=== PATIENT | male | born 1945 | race Caucasian/White ===

== ENCOUNTER 2017-07-24 11:10 | Day surgery (SDC) | payer MEDICARE ==
[~2017-07-24 11:10] MED LIST: Acetaminophen TAB* 325 MG PO PRN; Buffered Lidocaine 0.9% SYRIN* 5 ML/SYR SYRINGE INTRADERM ONE
[2017-07-24] MEDS ORDERED: acetaZOLAMIDE TAB* 250 MG ONE (11:19)
[2017-07-24] MEDS ORDERED: Tetracaine 0.5% OPTH.SOL 4 ML* 1 DROP BTL ONE (11:19)
[2017-07-24] MEDS ORDERED: Lidocaine 1%* 5 ML VIAL ONE (11:19)
[2017-07-24] MEDS ORDERED: Cyclopentolate 1% OPTH.SOL* 2 ML BTL ONE (11:19)
[2017-07-24] MEDS ORDERED: Phenylephrine 2.5% OPTH.SOL* 2 ML BTL ONE (11:19)
[2017-07-24] MEDS ORDERED: Ketorolac 0.5% OPHTH (NF) 0.5 % 5 ML BTL ONE (11:19)
[2017-07-24] MEDS ORDERED: Tropicamide 1% OPTH.SOL* BTL ONE (11:19)
[2017-07-24] MEDS ORDERED: Neomycin/Polymy/Dex OPHTH.OIN* 3.5 GM ONE (11:19)
[2017-07-24] MEDS ORDERED: Povidone Iodine 5% OPTH* 30 ML BTL ONE (11:19)
[2017-07-24] MEDS ORDERED: Levalbuterol 0.63MG/3ML NEB* UNIT OF USE INH ONE ×2 (12:16)
[2017-07-24] MEDS ORDERED: Midazolam* 1 MG/ML 5 ML VIAL (5 MG) ONE (12:34)
[2017-07-24 13:54] VITALS: BP 128/74
--- NOTE | 2017-07-25 13:06 | OP ---
DATE OF OPERATION: 07/24/17 - [facility] DATE OF : 45 SURGEON: Ramon Flanagan MD ANESTHESIA: Monitored anesthesia care. PRE-OP DIAGNOSIS: Cataract, right eye. POST-OP DIAGNOSIS: Cataract, right eye. OPERATIVE PROCEDURE: Extracapsular cataract extraction of the right eye with intraocular lens implant. IMPLANTS: SN60WF 18.0 diopter lens to the right eye. COMPLICATIONS: None. DESCRIPTION OF PROCEDURE: The patient was given phenylephrine 2.5% and cyclopentolate 1% eyedrops to the operative eye in the preoperative area. The patient was taken to the operating room where a time-out was taken to identify the correct patient, site, and side of surgery. The patient's right eye was prepped and draped in the usual sterile fashion with 5% Betadine. A second timeout was taken to verify the correct patient, site, and side of surgery, and correct lens implant. A lid speculum was placed in the right eye. A 1-mm paracentesis blade was used to make a clear corneal incision in the superotemporal position. Preservative-free 1% lidocaine was injected into the anterior chamber. DisCoVisc was then injected into the anterior chamber. A 2.75 -mm keratome blade was used to make a triplanar incision at the inferotemporal position. A cystotome initiated a capsulorrhexis, which was completed with Utrata forceps in a continuous and curvilinear manner. Hydrodissection of the lens was performed with BSS on a cannula. The lens could be spun in the capsular bag. The phacoemulsification handpiece was used with a divide-and- conquer technique to remove the nucleus with 20.03 CDE. The I/A handpiece then removed the residual cortical lens material. DisCoVisc was injected to inflate the capsular bag. The planned SN60WF 18.0 diopter lens was injected into the capsular bag. The residual DisCoVisc was removed from the eye with the I/A handpiece. The corneal incisions were hydrated and no leaks occurred at physiologic pressure around 20 mmHg per palpation. The lid speculum was removed and drapes removed. Maxitrol ointment was placed to the surface of the operative eye. An adhesive patch and shield was then placed on the operative eye. The patient was taken to the postoperative area in stable condition. [id number]/[facility] #: [id number] MTDD
== END 2017-07-24 14:00 | disposition home or self-care (01) ==
LOC: OREAST 11:10
PROVIDERS: ATTEND Student in an Organized Health Care Education/Training Program
DX: H25.11 Age-related nuclear cataract, right eye (principal); H04.123 Dry eye syndrome of bilateral lacrimal glands; E11.9 Type 2 diabetes mellitus without complications; Z79.84 Long term (current) use of oral hypoglycemic drugs; I48.91 Unspecified atrial fibrillation; Z79.01 Long term (current) use of anticoagulants; F17.210 Nicotine dependence, cigarettes, uncomplicated; J44.9 Chronic obstructive pulmonary disease, unspecified; Z99.81 Dependence on supplemental oxygen; K50.90 Crohn's disease, unspecified, without complications; Z79.899 Other long term (current) drug therapy; E66.01 Morbid (severe) obesity due to excess calories
CPT/HCPCS: A9270-GY; J2250; V2632

== ENCOUNTER 2017-07-31 07:14 | Day surgery (SDC) | payer MEDICARE ==
[2017-07-31] MEDS ORDERED: Levalbuterol 0.63MG/3ML NEB* UNIT OF USE INH ONE (08:04)
[2017-07-31] MEDS ORDERED: Midazolam* 1 MG/ML 2 ML VIAL (2 MG) ONE (08:44)
[2017-07-31 09:29] VITALS: BP 139/92
--- NOTE | 2017-07-31 12:14 | OP ---
DATE OF OPERATION: 07/31/17 - [facility] DATE OF : 45 SURGEON: Ramon Flanagan MD ANESTHESIA: Monitored anesthesia care. PRE-OP DIAGNOSIS: Cataract, left eye. POST-OP DIAGNOSIS: Cataract, left eye. OPERATIVE PROCEDURE: Extracapsular cataract extraction of the left eye with intraocular lens implant. IMPLANTS: SN60WF 18.0 diopter lens to the left eye. COMPLICATIONS: None. DESCRIPTION OF PROCEDURE: The patient was given phenylephrine 2.5% and cyclopentolate 1% eyedrops to the operative eye in the preoperative area. The patient was taken to the operating room where a time-out was taken to identify the correct patient, site and side of surgery. The patient's left eye was prepped and draped in the usual sterile fashion with 5% Betadine. A second time -out was taken to verify the correct patient, site and side of surgery, and correct lens implant. A lid speculum was placed to the left eye. A 1-mm paracentesis blade was used to make a clear corneal incision in the inferotemporal position. Preservative free 1% lidocaine was injected into the anterior chamber. DisCoVisc was then injected into the anterior chamber. A 2.75 mm keratome blade was used to make a triplanar incision at the superotemporal position. A cystotome initiated a capsulorrhexis which was completed with Utrata forceps in a continuous and curvilinear manner. Hydrodissection of the lens was performed with BSS on a cannula. The lens could be spun in the capsular bag. The phacoemulsification handpiece was used with a divide- and-conquer technique to remove the nucleus with 20.56 CDE. The I/A handpiece then removed the residual cortical lens material. DisCoVisc was injected to inflate the capsular bag. The planned SN60WF 18.0 diopter lens was injected into the capsular bag. The residual DisCoVisc was removed from the eye with the I/A handpiece. The corneal incisions were hydrated and no leaks occurred at physiologic pressure around 20 mmHg per palpation. The lid speculum was removed and drapes removed. Maxitrol ointment was placed to the surface of the operative eye. An adhesive patch and shield was then placed on the operative eye. The patient was taken to the postoperative area in stable condition. [id number]/[facility] #: [id number] MTDD
[2017-07-31] MEDS ORDERED: Povidone Iodine 5% OPTH* 30 ML BTL ONE (13:57)
[2017-07-31] MEDS ORDERED: Phenylephrine 2.5% OPTH.SOL* 2 ML BTL ONE (13:57)
[2017-07-31] MEDS ORDERED: Tetracaine 0.5% OPTH.SOL 4 ML* 1 DROP BTL ONE (13:57)
[2017-07-31] MEDS ORDERED: Neomycin/Polymy/Dex OPHTH.OIN* 3.5 GM ONE (13:57)
[2017-07-31] MEDS ORDERED: Lidocaine 1%* 5 ML VIAL ONE (13:57)
[2017-07-31] MEDS ORDERED: acetaZOLAMIDE TAB* 250 MG ONE (13:57)
[2017-07-31] MEDS ORDERED: Tropicamide 1% OPTH.SOL* BTL ONE (13:57)
[2017-07-31] MEDS ORDERED: Ketorolac 0.5% OPHTH (NF) 0.5 % 5 ML BTL ONE (13:57)
[2017-07-31] MEDS ORDERED: Cyclopentolate 1% OPTH.SOL* 2 ML BTL ONE (13:57)
== END 2017-07-31 09:40 | disposition home or self-care (01) ==
LOC: OREAST 07:14
PROVIDERS: ATTEND Student in an Organized Health Care Education/Training Program
DX: H25.12 Age-related nuclear cataract, left eye (principal); H04.123 Dry eye syndrome of bilateral lacrimal glands; E11.9 Type 2 diabetes mellitus without complications; Z79.84 Long term (current) use of oral hypoglycemic drugs; I48.91 Unspecified atrial fibrillation; Z79.01 Long term (current) use of anticoagulants; I10 Essential (primary) hypertension; K50.90 Crohn's disease, unspecified, without complications; J44.9 Chronic obstructive pulmonary disease, unspecified; Z79.899 Other long term (current) drug therapy; M19.90 Unspecified osteoarthritis, unspecified site; E66.9 Obesity, unspecified
CPT/HCPCS: A9270-GY; J2250; V2632

== ENCOUNTER 2017-08-30 19:43 | Inpatient (IN) | payer MEDICARE ==
[2017-08-30] MEDS ORDERED: NS 0.9% 1000 ML* 1,000 ML IV SCH ×2 (20:00→22:45)
--- NOTE | 2017-08-30 20:14 | ED ---
Complex/Multi-Sys Presentation - HPI Summary HPI Summary: This patient is a 71 year old M MAYDA from [facility] to ED with a chief complaint of GI bleed (bright red, no clots) since 0430 this morning and COPD exacerbation since 2 days ago. The GI bleed is described as bright red, no clots , lightened slightly since onset, and happens only during BM. His last BM was at 1230. The patient rates the pain 3/10 in severity. Symptoms aggravated by getting up from standing up from sitting position. Symptoms alleviated by nothing. Patient reports SOB (worse than baseline), chest heaviness, dizziness, light-headed, and cough. Patient denies fever and LOC. He was given Protonix infusing and normal saline infusing upon arrival. The patient last had a colonoscopy on 03/25. The patient uses O2 at home once in a while. - History Of Current Complaint Chief Complaint: EDGIBleed Time Seen by Provider: 08/30/17 19:45 Hx Obtained From: Patient Onset/Duration: Sudden Onset, Lasting Hours - GI bleed, Lasting Days - SOB, Still Present Timing: Constant - SOB, Intermittent, Lasting: - GI bleed during BM, Hours - GI bleed, Days - SOB Severity Currently: Mild - 3/10 Severity Initially: Mild - 3/10 Aggravating Factor(s): standing up from sitting position Alleviating Factor(s): nothing Associated Signs And Symptoms: Positive: Other - Patient reports SOB (worse than baseline), chest heaviness, dizziness, light-headed, and cough. Patient denies fever and LOC. - Allergies/Home Medications Allergies/Adverse Reactions: Allergies Allergy/AdvReac Type Severity Reaction Status Date / Time No Known Allergies Allergy Verified 07/31/17 07:43 Home Medications: Home Medications Albuterol/Ipratropium NEB.DOMONIQUE* [Duoneb (Albuterol 2.5 MG/Ipratropium 0.5 MG)] 1 neb INH Q6H PRN 08/30/17 [History Confirmed 08/30/17] Ciprofloxacin 0.3% OPTH.DOMONIQUE* [Cipro 0.3% Opth*] 1 drop RIGHT EYE TID 08/30/17 [ History Confirmed 08/30/17] Furosemide TAB* [Lasix TAB*] 20 mg PO DAILY 08/30/17 [History Confirmed 08/30/17 ] Ketorolac 0.5% OPHTH (NF) 1 drop RIGHT EYE TID 08/30/17 [History Confirmed 08/30] [place]-3 Fatty Acids (Nf) [Fish Oil (NF)] 1,000 mg PO QAM 08/30/17 [History Confirmed 08/30/17] dilTIAZem HCl [Diltiazem 24Hr ER] 180 mg PO QAM 08/30/17 [History Confirmed 01/07] prednisoLONE 1% OPHTH.SUSP* [Pred Forte 1%*] 1 drop RIGHT EYE TID 08/30/17 [ History Confirmed 08/30/17] PMH/Surg Hx/FS Hx/Imm Hx Endocrine/Hematology History: Reports: Hx Diabetes Cardiovascular History: Reports: Hx Hypercholesterolemia, Hx Hypertension, Other Cardiovascular Problems/Disorders - Atrial fibrillation Denies: Hx Congestive Heart Failure Respiratory History: Reports: Hx Asthma, Other Respiratory Problems/Disorders - Pneumonia in December 2016, uses Oxygen at night 3 L nasal GI History: Reports: Hx Crohn's Disease, Other GI Disorders - colitis History: Denies: Other Problems/Disorders Musculoskeletal History: Reports: Hx Arthritis - Legs and back, Other Musculoskeletal History - spinal fx Sensory History: Reports: Hx Cataracts - Bilateral Denies: Hx Contacts or Glasses, Hx Glaucoma, Hx Hearing Aid Opthamlomology History: Reports: Hx Cataracts - Bilateral Denies: Hx Contacts or Glasses, Hx Glaucoma Neurological History: Denies: Other Neuro Impairments/Disorders - Surgical History Surgery Procedure, Year, and Place: CARDIAC CATH WITH STENTS Hx Anesthesia Reactions: No Infectious Disease History: No Infectious Disease History: Denies: Traveled Outside the [place] in Last 30 Days - Family History Known Family History: Positive: Diabetes, Other Family History: COPD - Social History Alcohol Use: None Substance Use Type: Reports: None Smoking Status (MU): Heavy Every Day Tobacco Smoker Type: Cigarettes Amount Used/How Often: 1 ppd Have You Smoked in the Last Year: Yes Review of Systems Negative: Fever Positive: Shortness Of Breath, Cough, Other - chest heaviness Positive: Other - GI bleed Neurological: Other - dizziness, light-headed; denies LOC All Other Systems Reviewed And Are Negative: Yes Physical Exam - Summary Physical Exam Summary: VITAL SIGNS: Reviewed. GENERAL: Patient is a pale MALE who is lying comfortable in the stretcher. Patient is not in any acute respiratory distress. HEAD AND FACE: No signs of trauma. No ecchymosis, hematomas or skull depressions. No sinus tenderness. EYES: PERRLA, EOMI x 2, No injected conjunctiva, no nystagmus. EARS: Hearing grossly intact. Ear canals and tympanic membranes are within normal limits. MOUTH: Oropharynx within normal limits. NECK: Supple, trachea is midline, no adenopathy, no JVD, no carotid bruit, no c- spine tenderness, neck with full ROM. CHEST: Symmetric, no tenderness at palpation LUNGS: Clear to auscultation bilaterally. No wheezing or crackles. Somewhat short of breath. CVS: Regular rate and rhythm, S1 and S2 present, no murmurs or gallops appreciated. ABDOMEN: Soft, non-tender. Belly is distended. No rebound no guarding, and no masses palpated. Bowel sounds are normal. EXTREMITIES: FROM in all major joints, Bilateral lower extremity pedal edema +2 , no cyanosis or clubbing. NEURO: Alert and oriented x 3. Speech is normal and follows commands. The patient is dizzy but no syncope. SKIN: Dry and warm RECTAL: no hemorrhoids, no masses, maroon color blood on finger on exam, no active bleeding Triage Information Reviewed: Yes Vital Signs On Initial Exam: Initial Vitals Temp Pulse Resp BP Pulse Ox 97.8 F 94 20 97/67 100 08/30/17 19:47 08/30/17 19:47 08/30/17 19:47 08/30/17 19:47 08/30/17 19:47 Vital Signs Reviewed: Yes Diagnostics - Vital Signs Vital Signs Temp Pulse Resp BP Pulse Ox 08/30/17 19:53 94 98 08/30/17 19:47 97.8 F 94 20 97/67 100 - Laboratory Result Diagrams: 08/30/17 20:16 Lab Statement: Any lab studies that have been ordered have been reviewed, and results considered in the medical decision making process. - EKG 2005 Cardiac Rate: Other Rate - Afib at 94 BPM EKG Rhythm: Atrial Fibrillation EKG Interpretation: RBBB Complex Multi-Symp Course/Dx Assessment/Plan: This patient is a 71 year old M BIBA from [facility] to ED with a chief complaint of GI bleed (bright red, no clots) since 0430 this morning and COPD exacerbation since 2 days ago. In the ED, the patient was given fluids. Consulted Dr. Forte at 2030 who accepts the patient for admission. The patient is agreeable with this plan. - Diagnoses Differential Diagnoses/HQI/PQRI: Other - lower GI bleed Provider Diagnoses: Lower GI bleed - Physician Notifications Discussed Care Of Patient With: Carter Forte Time Discussed With Above Provider: 20:31 Instructed by Provider To: Other - Consulted Dr. Forte about the patient and he accepts the patient for admission. Discharge - Sign-Out/Discharge Documenting (check all that apply): Patient Departure - Discharge Plan Condition: Stable Disposition: ADMITTED TO [facility] Referrals: Harish Cabrera DO [Primary Care Provider] -
[2017-08-30 20:28] LABS: ABS Basophils 0 10^3/ul (0-0.2); ABS Eosinophils 0 10^3/ul (0-0.6); ABS Lymphocytes 1.4 10^3/ul (1.0-4.8); ABS Monocytes 1.2 10^3/ul (0-0.8); ABS Neutrophils 10.4 10^3/ul (1.5-7.7); ABS Nucleated RBC 0 10^3/ul; Eosinophil % 0.4 % (0-6); Hematocrit 25 % (42-52); Hemoglobin 7.6 g/dl (14.0-18.0); Lymphocyte % 10.7 % (25-47); Mean Corpuscular HGB Conc 30 g/dl (31-36); Mean Corpuscular Hemoglobin 21 pg (27-31); Mean Corpuscular Volume 69 fL (80-94); Mean Platelet Volume 7.1 um3 (7.4-10.4); Nucleated Red Blood Cells % 0.2; Platelet Count 379 10^3/ul (150-450); Red Blood Count 3.63 10^6/ul (4.00-5.40); Red Cell Distribution Width 21 % (10.5-15); White Blood Count 13.2 10^3/ul (3.5-10.8)
[2017-08-30 20:34] LABS: INR 2.49 (0.77-1.02)
[2017-08-30] MEDS ORDERED: NS 0.9% 1000 ML* 1,000 ML IV ONE (20:34)
[2017-08-30 20:41] LABS: EGFR Non-African American 59.7 (>60)
--- NOTE | 2017-08-30 20:43 | HP ---
H&P (Free Text) History and Physical: PCP: Kamaljit Cabrera MD Date/Time: 08/30/20172034 CC: SOB, BRBPR HPI: Mr Mayberry is a 71YO male HX Crohn's, DM2, HTN, HLD, AFIB on warfarin who reports onset of bright red blood per rectum ~0430 this AM. He states at the time he wasn't certain it was blood, but by 0800 it was obvious. He reports at least 4 large bloody bowel movements today. He reports SOB onset this AM and light-headedness associated with standing, but denies syncope, chest pain, N/V, abdominal pain, sweats, chest pain, or other issues. He presented to [place] ED where suspected lower GI hemorrhage was confirmed based on presentation, normal BUN, and mild hypotension. [place] ED provider communicated with Kamaljit Polanco MD GI who agreed to transfer with Hospitalist Service to admit. It appears he was given 1250cc NS , but not vitamin K prior to transport . [place] [facility] HGB was noted to be decreased to 7.6 from Yury's 8.3 and he had a large dark red watery bowel movement of ~300cc volume and pressures were soft in the 90s. Case was reviewed with Kamaljit Polanco MD who advised a tagged red-cell scan and will evaluate in the AM. Ligia Vaz MD surgery was apprised and agreed to consult in the AM as well. In the interval his warfarin coagulopathy will be reversed with PO vitamin K as well as with FFP. He will be admitted to the ICU for further aggressive resuscitation and monitoring including blood transfusion. Without these interventions he is at exceeding high risk of near immediate to short-term adverse outcome. PMedHx DM2 CAD AFIB on warfarin COPD Crohn's disease HTN HLD RICHARD Ambulatory Orders Lisinopril TAB* [Prinivil TAB 10 MG*] 10 mg PO QAM 04/12/13 metFORMIN* [Glucophage 1000 MG TAB *] 1,000 mg PO BID WITH MEALS 04/12/13 Digoxin TAB* [Lanoxin TAB*] 0.125 mg PO QAM 02/06/15 Meloxicam(NF) [Mobic(NF)] 15 mg PO QAM 02/06/15 Simvastatin (NF) [Zocor (NF)] 40 mg PO QPM 02/06/15 predniSONE TAB* [Deltasone 10 MG TAB*] 20 mg PO QAM 02/06/15 Fluticasone/Vilanterol MDI(NF) [Breo Ellipta MDI (NF)] 1 puff INH DAILY Albuterol/Ipratropium NEB.DOMONIQUE* [Duoneb (Albuterol 2.5 MG/Ipratropium 0.5 MG)] 1 neb INH Q6H PRN 08/30/17 Ciprofloxacin 0.3% OPTH.DOMONIQUE* [Cipro 0.3% Opth*] 1 drop RIGHT EYE TID 08/30/17 Furosemide TAB* [Lasix TAB*] 20 mg PO DAILY 08/30/17 Ketorolac 0.5% OPHTH (NF) 1 drop RIGHT EYE TID 08/30/17 [place]-3 Fatty Acids (Nf) [Fish Oil (NF)] 1,000 mg PO QAM 08/30/17 Warfarin TAB(*) [Coumadin TAB(*)] 5 mg PO DAILY 08/30/17 dilTIAZem HCl [Diltiazem 24Hr ER] 180 mg PO QAM 08/30/17 prednisoLONE 1% OPHTH.SUSP* [Pred Forte 1%*] 1 drop RIGHT EYE TID 08/30/17 Allergies No Known Allergies Allergy (Verified 07/31/17 07:43) PSurgHx OU cataract extractions tonsillectomy SocHx: 1PPD cigarettes w/ ~50PYHX, denies alcohol & recreational drugs; retired ; lives with his ; full code status FamHx: positive for CAD, HTN ROS: as above, otherwise reviewed and all were negative vitals: Vital Signs Temp 36.6 C 08/30/17 21:53 Pulse 97 08/30/17 21:13 Resp 25 08/30/17 21:47 BP 111/58 08/30/17 21:47 Pulse Ox 98 08/30/17 21:13 Intake & Output 08/29/17 08/30/17 08/30/17 23:59 11:59 23:59 Weight 122.47 kg Constitutional: NAD, normally developed, obese white male HEENM: atraumatic; sclera/conjunctiva: anicteric/clear; hearing: clinically mildly decreased; oropharynx: clear, mucosa tacky Neck: soft tissue: non-tender; thyroid: normal Pulmonary: moseley-insp/exp rhonchi L, scant end-expiratory wheeze R, fair aeration , no accessory muscle use CV: RR/RR, normal S1S2, no carotid bruit, no jugular venous distention, 2+ B DP/ PT, 2+ BLE edema Abdominal: soft, non-distended, non-tender, no rebound/guarding/rigidity, normoactive bowel sounds, no hepatosplenomegaly or masses, no costovertebral angle tenderness Musculoskeletal: general: grossly intact, non-tender; gait: too high risk to ambulate Integumental: pale, cool & dry; no rash or wound noted Psychiatric orientation: AA&O to PPS affect: calm mood: cooperative eye contact: fair content: reliable responses: timely insight: good Testing: Lab Results 08/30/17 08/30/17 08/30/17 Range/Units 20:16 20:16 20:16 WBC 13.2 H (3.5-10.8) 10^3/ul RBC 3.63 L (4.00-5.40) 10^6/ul Hgb 7.6 L (14.0-18.0) g/dl Hct 25 L (42-52) % MCV 69 L (80-94) fL MCH 21 L (27-31) pg MCHC 30 L (31-36) g/dl RDW 21 H (10.5-15) % Plt Count 379 (150-450) 10^3/ul MPV 7.1 L (7.4-10.4) um3 Neut % (Auto) 79.0 (38-83) % Lymph % (Auto) 10.7 L (25-47) % Hardin % (Auto) 9.5 H (0-7) % Eos % (Auto) 0.4 (0-6) % Baso % (Auto) 0.4 (0-2) % Absolute Neuts (auto) 10.4 H (1.5-7.7) 10^3/ul Absolute Lymphs (auto) 1.4 (1.0-4.8) 10^3/ul Absolute Monos (auto) 1.2 H (0-0.8) 10^3/ul Absolute Eos (auto) 0 (0-0.6) 10^3/ul Absolute Basos (auto) 0 (0-0.2) 10^3/ul Absolute Nucleated RBC 0 10^3/ul Nucleated RBC % 0.2 INR (Anticoag Therapy) 2.49 H (0.77-1.02) APTT 36.6 H (26.0-36.3) seconds Sodium 140 (135-145) mmol/L Potassium 3.5 (3.5-5.0) mmol/L Chloride 103 (101-111) mmol/L Carbon Dioxide 28 (22-32) mmol/L Anion Gap 9 (2-11) mmol/L BUN 23 (6-24) mg/dL Creatinine 1.20 H (0.67-1.17) mg/dL Est GFR ( Amer) 72.2 (>60) Est GFR (Non-Af Amer) 59.7 (>60) BUN/Creatinine Ratio 19.2 (8-20) Glucose 121 H (70-100) mg/dL Calcium 8.2 L (8.6-10.3) mg/dL Total Bilirubin 0.40 (0.2-1.0) mg/dL AST 7 L (13-39) U/L ALT 11 (7-52) U/L Alkaline Phosphatase 63 (34-104) U/L B-Natriuretic Peptide ( - 100) pg/mL Total Protein 6.0 L (6.4-8.9) g/dL Albumin 3.2 (3.2-5.2) g/dL Globulin 2.8 (2-4) g/dL Albumin/Globulin Ratio 1.1 (1-3) Blood Type Antibody Screen Crossmatch 08/30/17 08/30/17 Range/Units 20:16 20:16 WBC (3.5-10.8) 10^3/ul RBC (4.00-5.40) 10^6/ul Hgb (14.0-18.0) g/dl Hct (42-52) % MCV (80-94) fL MCH (27-31) pg MCHC (31-36) g/dl RDW (10.5-15) % Plt Count (150-450) 10^3/ul MPV (7.4-10.4) um3 Neut % (Auto) (38-83) % Lymph % (Auto) (25-47) % Hardin % (Auto) (0-7) % Eos % (Auto) (0-6) % Baso % (Auto) (0-2) % Absolute Neuts (auto) (1.5-7.7) 10^3/ul Absolute Lymphs (auto) (1.0-4.8) 10^3/ul Absolute Monos (auto) (0-0.8) 10^3/ul Absolute Eos (auto) (0-0.6) 10^3/ul Absolute Basos (auto) (0-0.2) 10^3/ul Absolute Nucleated RBC 10^3/ul Nucleated RBC % INR (Anticoag Therapy) (0.77-1.02) APTT (26.0-36.3) seconds Sodium (135-145) mmol/L Potassium (3.5-5.0) mmol/L Chloride (101-111) mmol/L Carbon Dioxide (22-32) mmol/L Anion Gap (2-11) mmol/L BUN (6-24) mg/dL Creatinine (0.67-1.17) mg/dL Est GFR ( Amer) (>60) Est GFR (Non-Af Amer) (>60) BUN/Creatinine Ratio (8-20) Glucose (70-100) mg/dL Calcium (8.6-10.3) mg/dL Total Bilirubin (0.2-1.0) mg/dL AST (13-39) U/L ALT (7-52) U/L Alkaline Phosphatase (34-104) U/L B-Natriuretic Peptide 64 ( - 100) pg/mL Total Protein (6.4-8.9) g/dL Albumin (3.2-5.2) g/dL Globulin (2-4) g/dL Albumin/Globulin Ratio (1-3) Blood Type A Positive Antibody Screen Negative Crossmatch See Detail ECG, personally reviewed: AFIB RBBB rate 94, no ischemia CXR, reported from [place]: IMPRESSION: No acute disease. CT abd/pel WO: ordered, pending tagged red-cell scan: ordered, pending Impression: 71M transferred from [place] ED with hypotension shock 2nd painless lower GI hemorrhage, suspect diverticular bleed DIAGNOSIS & PLAN Primary hypotension 2nd painless lower GI hemorrhage, suspect diverticular bleed : ICU admission : Kamaljit Polanco MD GI consulted : tagged red-cell scan : will eval in AM : Ligia Vaz MD surgery consulted, will eval in AM : NPO in case surgery becomes required : type, cross, & give 1 unit pRBCs : IVFs : Q4H H&H : supportive care warfarin w/ therapeutic INR : 2 units FFP : 5mg liquid oral vitamin K : recheck INR ~4H to assess need for further correction COPD in mild exacerbation : albuterol nebs : mometasone/formoterol : tiotropium : no methylprednisolone given GI bleeding & mild exacerbation : supplemental oxygen Secondary DM2 : check A1c : NPO : hold metformin : correctional insulin CAD : no acute issues : telemetry AFIB on warfarin : reverse & hold warfarin as above : continue digoxin as IV 1:1 of home PO dose : hold diltiazem until BP adequately stabilized : telemetry Crohn's disease : not on medications at this time HTN : hold anti-hypertensives in current setting : trend & re-institute as appropriate HLD : hold simvastatin until taking PO RICHARD not on CPAP : uses 3L NC PRN at home Admission Rational: inpatient for critical patient requiring ICU monitoring and acute intervention to prevent potentially fulminant decompensation DVTp: SCDs, no anticoagulation in setting of acute hemorrhage Code Status: full HCP: Critical Care Time: 135minutes spent interviewing, examining, and explaining treatment recommendations/options along with risks/benefits/reasoning with patient; as well as reviewing old records and consulting with GI x2, surgery x1 , & radiology x2 via phone.
[2017-08-30] MEDS ORDERED: Phytonadione Oral Solution* 5 MG/25 ML UDC PO ONE (20:48)
[2017-08-30] MEDS ORDERED: Acetaminophen SUPP* 650 MG SUPP PR PRN (22:43)
[2017-08-30] MEDS ORDERED: Albuterol 2.5 MG/3 ML NEB.SOL* (0.083%) INH PRN (22:43)
[2017-08-30] MEDS ORDERED: Spiriva Inhaler DEVICE* 1 EACH DEVICE SCH (23:00)
[2017-08-31] MEDS: Albuterol 2.5 MG/3 ML NEB.SOL* (0.083%) INH SCH ×3 (01:40→13:25)
[2017-08-31 02:45] LABS: Hematocrit 25 % (42-52); Hemoglobin 7.5 g/dl (14.0-18.0)
[2017-08-31 02:50] LABS: INR 1.78 (0.77-1.02)
[2017-08-31] MEDS: Insulin LISPRO* 1 UNITS UNIT SUBCUT SCH ×7 (02:54→23:38)
[2017-08-31] MEDS ORDERED: PEG 3000 GI LAVAGE* 1 GALLON PO ONE (03:56)
[2017-08-31 06:41] LABS: ABS Basophils 0 10^3/ul (0-0.2); ABS Eosinophils 0.1 10^3/ul (0-0.6); ABS Lymphocytes 1.2 10^3/ul (1.0-4.8); ABS Monocytes 1.1 10^3/ul (0-0.8); ABS Neutrophils 7.2 10^3/ul (1.5-7.7); ABS Nucleated RBC 0 10^3/ul; Hematocrit 22 % (42-52); Hemoglobin 6.7 g/dl (14.0-18.0); Lymphocyte % 12.7 % (25-47); Mean Corpuscular HGB Conc 30 g/dl (31-36); Mean Corpuscular Hemoglobin 22 pg (27-31); Mean Corpuscular Volume 72 fL (80-94); Mean Platelet Volume 7.4 um3 (7.4-10.4); Nucleated Red Blood Cells % 0.1; Platelet Count 291 10^3/ul (150-450); Red Cell Distribution Width 21 % (10.5-15); White Blood Count 9.7 10^3/ul (3.5-10.8)
[2017-08-31 07:03] LABS: EGFR Non-African American 82.1 (>60)
--- NOTE | 2017-08-31 07:45 | RAD ---
INDICATION: Acute lower gastrointestinal bleeding. Comparison: There are no prior studies available for comparison. Technique: The patient was given an intravenous injection of 25.2 mCi of technetium 99m pyrophosphate. 1 minute images were acquired of the abdomen and pelvis over a one-hour interval. These were compressed to 5 minute intervals and reviewed as a cine loop. FINDINGS: There is progressive accumulation of radiotracer in the right upper quadrant and region of the hepatic flexure which later fills the more proximal ascending colon suggestive of active bleeding. IMPRESSION: FINDINGS MOST CONSISTENT WITH ACTIVE GI BLEEDING IN THE REGION OF THE HEPATIC FLEXURE.
--- NOTE | 2017-08-31 07:55 | RAD ---
CLINICAL HISTORY: painless lower GI hemorrhage COMPARISON: February 06, 2015 TECHNIQUE: Multiple contiguous axial CT scans were obtained of the abdomen and pelvis, without intravenous contrast enhancement. Coronal and sagittal multiplanar reformations are submitted for review. Oral contrast was not administered. FINDINGS: The study is limited by the lack of intravenous contrast. This limits evaluation of the solid organs and vasculature. Evaluation is also limited by positioning. LUNG BASES: The lung bases are clear. LIVER: The dome of the liver is not completely included within the [id number] the current examination. The liver is enlarged measuring 20 cm in long axis. The visualized portion of the liver is unremarkable. BILE DUCTS: There is no intrahepatic or extrahepatic biliary dilatation. GALLBLADDER: The gallbladder is normal, without pericholecystic inflammatory change. PANCREAS: The pancreas is normal, without mass or ductal dilatation. SPLEEN: Normal in size and appearance. UPPER GI TRACT: Evaluation of the gastrointestinal tract is limited by incomplete gastric distention. The upper GI tract is unremarkable. SMALL BOWEL AND MESENTERY: The small bowel is normal in contour, course, and caliber. There is no obstruction or dilatation. COLON: There is straightening of the pericolonic fat from the level of the hepatic flexure through to the descending colon. ADRENALS: Normal bilaterally. KIDNEYS: There is a simple cyst of the upper pole of the right kidney. There are multiple right renal calyceal and pelvic stones measuring up to 0.4 cm in size. There is no appreciable hydronephrosis. BLADDER: The bladder is smooth in contour. PELVIC ORGANS: The prostate gland is normal. The seminal vesicles are symmetric. AORTA: There is atherosclerosis of the aorta which measures up to 3.2 cm in diameter. IVC: Unremarkable LYMPH NODES: There is no lymphadenopathy by size criteria. ABDOMINAL WALL: There are small fat-containing inguinal hernias bilaterally. BONES AND SOFT TISSUES: Degenerative changes are noted of the spine. There is spondylolysis with spondylolisthesis at L5-S1. OTHER: None IMPRESSION: 1. THERE IS PERICOLONIC INFLAMMATORY CHANGE SUGGESTIVE OF COLITIS. 2. NEPHROLITHIASIS WITHOUT HYDRONEPHROSIS. 3. HEPATOMEGALY. 4. BILATERAL SPONDYLOLYSIS WITH SPONDYLOLISTHESIS AT L5-S1. 5. ATHEROSCLEROSIS OF THE URETER WHICH IS ECTATIC UP TO 3.2 CM IN DIAMETER.
[2017-08-31] MEDS ORDERED: Digoxin IV* 0.5 MG/2 ML AMP (0.25 MG/ML) IV ONE (08:00)
[2017-08-31] MEDS ORDERED: Phytonadione IV (Adult)* 10 MG/ML 1 ML AMP IV ONE (08:20)
[2017-08-31] MEDS: Ciprofloxacin 0.3% OPTH.SOL* 5 ML BTL RIGHT EYE SCH ×3 (08:56→20:21)
[2017-08-31] MEDS: prednisoLONE 1% OPHTH.SUSP* 5 ML OPHTH.SUSP RIGHT EYE SCH ×3 (08:58→20:21)
[2017-08-31] MEDS ORDERED: Phytonadione IV (Adult)* 5 MG in NS 0.9% 50 ML* 50 ML IV ONE (09:00)
[2017-08-31] MEDS ORDERED: Digoxin TAB* 0.125 MG PO SCH (09:00)
[2017-08-31] MEDS ORDERED: Albuterol/Ipratropium NEB.SOL* Albuterol 2.5 MG/Ipratropium 0.5 MG 3 ML INH PRN (09:37)
--- NOTE | 2017-08-31 09:38 | PN ---
Subjective Date of Service: 08/31/17 Interval History: Pt feels OK. Never had abd pain. Las bloody BM-large this aM Objective Active Medications: Acetaminophen (Tylenol Supp*) 650 mg TN Q6H PRN PRN Reason: FEVER/PAIN Albuterol (Ventolin 2.5 Mg/3 Ml Neb.Nkechi*) 2.5 mg INH Q2H PRN PRN Reason: SOB/WHEEZING Albuterol (Ventolin 2.5 Mg/3 Ml Neb.Nkechi*) 2.5 mg INH [id number] AWAKE [facility] Last Admin: 08/31/17 08:11 Dose: 2.5 mg Ciprofloxacin (Cipro 0.3% Opth*) 1 drop RIGHT EYE TID [facility] Last Admin: 08/31/17 08:56 Dose: 1 drop Device (Tiotropium Inhaler Device*) 1 each .SEE ORDER .USE w/ SPIRIVA CAPS [facility] Sodium Chloride (Ns 0.9% 1000 Ml*) 1,000 mls @ 125 mls/hr IV PER RATE [facility] Last Admin: 08/31/17 03:00 Dose: 125 mls/hr Insulin Human Lispro (Humalog*) 0 units SUBCUT Q4H [facility]; Protocol Last Admin: 08/31/17 06:25 Dose: Not Given Mometasone Furoate/Formoterol Fumar (Dulera 200/5 Mdi*) 2 puff INH BID [facility] Prednisolone Acetate (Pred Forte 1%*) 1 drop RIGHT EYE TID [facility] Last Admin: 08/31/17 08:58 Dose: 1 drop Tiotropium [place] (Spiriva Cap.Inh*) 1 cap INH DAILY [facility] Vital Signs - 8 hr 08/31/17 08/31/17 08/31/17 01:38 01:43 02:00 Temperature Pulse Rate 92 92 109 Respiratory 26 25 20 Rate Blood Pressure (mmHg) O2 Sat by Pulse 97 100 96 Oximetry 08/31/17 08/31/17 08/31/17 02:46 03:00 03:01 Temperature Pulse Rate 91 100 86 Respiratory 30 28 27 Rate Blood Pressure 108/69 96/54 (mmHg) O2 Sat by Pulse 96 98 91 Oximetry 08/31/17 08/31/17 08/31/17 03:16 03:30 03:47 Temperature Pulse Rate 91 98 111 Respiratory 22 27 28 Rate Blood Pressure 112/59 136/72 122/78 (mmHg) O2 Sat by Pulse 83 98 100 Oximetry 08/31/17 08/31/17 08/31/17 04:00 04:01 04:16 Temperature Pulse Rate 100 104 98 Respiratory 22 19 18 Rate Blood Pressure 125/69 132/93 (mmHg) O2 Sat by Pulse 96 98 99 Oximetry 08/31/17 08/31/17 08/31/17 04:31 04:46 04:59 Temperature Pulse Rate 106 94 93 Respiratory 15 19 22 Rate Blood Pressure 119/68 128/111 133/68 (mmHg) O2 Sat by Pulse 96 96 98 Oximetry 08/31/17 08/31/17 08/31/17 05:00 05:01 05:02 Temperature Pulse Rate 90 93 Respiratory 20 17 24 Rate Blood Pressure 122/74 (mmHg) O2 Sat by Pulse 100 97 Oximetry 08/31/17 08/31/17 08/31/17 05:16 05:19 05:31 Temperature Pulse Rate 88 85 84 Respiratory 19 23 17 Rate Blood Pressure 95/59 107/64 111/63 (mmHg) O2 Sat by Pulse 99 96 95 Oximetry 08/31/17 08/31/17 08/31/17 05:46 06:00 06:01 Temperature Pulse Rate 90 84 88 Respiratory 19 21 15 Rate Blood Pressure 130/61 97/58 (mmHg) O2 Sat by Pulse 97 95 98 Oximetry 08/31/17 08/31/17 08/31/17 06:16 06:31 06:45 Temperature Pulse Rate 101 107 84 Respiratory 16 24 Rate Blood Pressure 121/67 133/83 140/77 (mmHg) O2 Sat by Pulse 99 100 Oximetry 08/31/17 08/31/17 08/31/17 07:00 07:01 07:16 Temperature Pulse Rate 89 95 89 Respiratory 23 28 24 Rate Blood Pressure 129/92 116/86 (mmHg) O2 Sat by Pulse 99 96 100 Oximetry 08/31/17 08/31/17 08/31/17 07:17 07:22 07:30 Temperature Pulse Rate 89 74 Respiratory 23 20 21 Rate Blood Pressure 124/72 127/73 122/76 (mmHg) O2 Sat by Pulse 99 100 Oximetry 08/31/17 08/31/17 08/31/17 07:45 07:51 08:14 Temperature 97.4 F Pulse Rate 78 90 Respiratory 20 20 Rate Blood Pressure 131/75 (mmHg) O2 Sat by Pulse 99 100 Oximetry 08/31/17 08:41 Temperature Pulse Rate 87 Respiratory Rate Blood Pressure (mmHg) O2 Sat by Pulse Oximetry Oxygen Devices in Use Now: Nasal Cannula Appearance: 71 yo m in nAD, aAOx3 Eyes: No Scleral Icterus, PERRLA Ears/Nose/Mouth/Throat: NL Teeth, Lips, Gums, Mucous Membranes Moist Neck: NL Appearance and Movements; NL JVP, Trachea Midline Respiratory: Symmetrical Chest Expansion and Respiratory Effort, - - rales b/l lower/mid lungs Cardiovascular: - - irrefular Lymphatic: No Cervical Adenopathy Extremities: No Clubbing, Cyanosis, - - trace pedal edema b/l Skin: No Rash or Ulcers, No Nodules or Sclerosis Neurological: Alert and Oriented x 3, NL Muscle Strength and Tone Result Diagrams: 08/31/17 06:21 08/31/17 06:21 Microbiology and Other Data: Microbiology 08/31/17 02:28 Nasal Screen MRSA (PCR) - Final Nasal Mrsa Not Detected Assess/Plan/Problems-Billing Assessment: 71 yo m with h/o : DM2 CAD AFIB on warfarin COPD(on 2 L 02 prn at home) Crohn's disease HTN HLD RICHARD presents with hypovolemic shock due to GI hemorrhage - Patient Problems (1) GI bleed Comment: lower with hypovolemic shock and acute anemia due to it for now SBP's are stable, pt is currently receiving his 3rd U of PRBS CT shows colitis, tagged RBC scan shows bleed at hepatic felxure. Pt just had approx 600 ml of bloody BM. D/w DR. Polanco-plan for colonoscopy at noon Cont Protonix IVQ12H (2) COPD (chronic obstructive pulmonary disease) Comment: currently not in exacerbation, but pt had been on prednisone since 2017. due to hypotension at admission will increase the dose of steroids and place pt on Solu Medrol 40 mg IV Q12H -a little less than stress dose( pt is currently hemodynamically stable, but will not be able to handle that much more fluids due to CHF). cont Dulera/duonebs (3) Diastolic CHF Comment: mild acute exacerbation Although pt was not dx with CHF , had been on Lasix for "leg edema" Suspect he has chronic diastolic CHF, now with mild exacerbation due to volume received for resuscitation will cont daily weights. stop IVF. cont transfusions. Check Echo (4) DM2 (diabetes mellitus, type 2) Comment: cont ISS, holding metformin (5) Atrial fibrillation Comment: Tx with a dose of IV digoxin x 1. OFF PO meds for colonoscopy. HR controlled. will restart cardizem/digoxin as soon as possible after colonoscopy (6) Chronic anticoagulation Comment: coumadin stopped. S/o FFP transfusionm and tx with a dose of vit K. will repeat Vit K, INR 1.7 (7) DVT prophylaxis Comment: SCD's, anticoagulants contraindicated due to acute GI bleed Status and Disposition: inpatient
[2017-08-31] MEDS: KCL 20 MEQ/100 ML IVPREMIX* 20 MEQ/100 ML BAG IV SCH ×2 (10:12→12:23)
[2017-08-31] MEDS: Pantoprazole IV* 40 MG IV SCH ×2 (10:39→22:01)
[2017-08-31] MEDS: methylPREDNISolone SOD 40 MG* 1 ML VIAL IV SCH ×2 (10:39→21:59)
[2017-08-31 11:18] LABS: INR 1.44 (0.77-1.02)
[2017-08-31] MEDS ORDERED: fentaNYL* 50 MCG/ML 2 ML VIAL (100 MCG VIAL) ONE (12:43)
[2017-08-31] MEDS ORDERED: Midazolam* 1 MG/ML 10 ML VIAL (10 MG) ONE (12:43)
[2017-08-31] MEDS: Tiotropium CAP.INH* CAP.INH/18 MCG (USE ORDER SET !) INH SCH (13:26)
[2017-08-31] MEDS: Mometasone/Formoter 200/5 MDI INH SCH ×2 (13:26→20:01)
[2017-08-31] MEDS: metroNIDAZOLE IV 500 MG/100ML* 500 MG/100 ML BAG IVPB SCH ×2 (14:46→23:38)
--- NOTE | 2017-08-31 15:32 | CONS ---
GASTROENTEROLOGY CONSULTATION DATE OF CONSULTATION: 08/31/2017. REQUESTING PHYSICIAN: Dr. Forte. REASON FOR CONSULTATION: Rectal bleeding. HISTORY OF PRESENT ILLNESS: Mr. Mayberry is a 71-year-old gentleman who presented to [facility] with bright red blood per rectum. He states he is feeling dizzy and more short of breath. He does have underlying oxygen dependent COPD. He has a history of Crohn's disease. He has been seeing Dr. Bergeron and our nurse practitioner, Arianna Mcclain, for continued care for his Crohn's disease. Unfo rtunately, he has had a fairly ritika road with his Crohn's. He has failed many medications due to in tolerance and side effects. Mesalamine interfered with his Warfarin. He had been on Remicade in the past with good results, but it was discontinued due to cost. He was then switched to Humira. He st opped the Humira after an episode of pneumonia, however did not restart it. He was then put on Predn isone and instructed to resume his Humira. However, he stopped the Humira again due to itching. He did have colonoscopies with Dr. Bergeron in 2013 and 2015[address] Each time Dr[address] Dr. Bergeron was unable to navigate around the hepatic flexure, he thought secondary to a stricture. Each time he had moderate colitis. Initially, he thought it was C. diff; however, the biopsies in 2013 were negative for C. diff, but w ere positive for active and chronic colitis consistent with inflammatory bowel disease. The patient started passing bright red blood per rectum and came to [facility]. He was found to be hypote nsive and was transferred over to Health System. He continued to have some bright red blood per rectum. Eventually he had a tagged RBC scan which was positive in the hepatic flexure and he had a CT of the abdomen and pelvis which showed colitis from the rectum to the hepatic flexure. He was a dmitted to the hospital. He has been given three units of blood so far. He denies any abdominal ovidio n. He states throughout all of this, his abdomen has felt perfectly fine. He is not quite sure if t his is his underlying Crohn's disease or something else. He does feel better this morning. He has no t had any bloody bowel movements in approximately three to four hours from now. PAST MEDICAL HISTORY: Significant for diabetes, coronary artery disease, A-fib, COPD, Crohn's, hyper tension, hyperlipidemia, and obstructive sleep apnea. PAST SURGICAL HISTORY: Cataracts and tonsillectomy. MEDICATIONS UPON ADMISSION: Diltiazem, Warfarin, Lasix, Cipro, Albuterol, Fluticasone, Prednisone 20 mg once a day, Simvastatin, Meloxicam, Digoxin, Metformin, Lisinopril. ALLERGIES: No known drug allergies. FAMILY HISTORY: Hypertension, coronary artery disease. SOCIAL HISTORY: He continues to smoke tobacco despite his oxygen use and his COPD. REVIEW OF SYSTEMS: Twelve systems were reviewed. Other than that mentioned in the HPI were unremar kable. PHYSICAL EXAM: General: Chronically ill-appearing male in no apparent distress. Alert, oriented, pl easant, fluent. Vital Signs: Temperature 98.1, blood pressure 123/75, pulse 84. HEENT: Mucus membr anes are dry. Dentition is poor. Heart: Irregular rate and rhythm. Lungs: Diffuse coarse breath sounds bilaterally. Slight wheezes. No rhonchi. Abdomen: Obese, positive bowel sounds. Soft, non tender, nondistended. No hepatosplenomegaly, masses, rebound, or guarding. Skin: Warm and dry. LABORATORY DATA: Of note, white count is 9.7, hemoglobin of 6.7. He is receiving blood. His platel ets are 291. INR is 1.44. BUN is normal at 21. Please see the HPI for his CT abdomen and pelvis and his tagged RBC scan. ASSESSMENT AND PLAN: This is a pleasant, 71-year-old gentleman with bright red blood per rectum and some hypotension who has a history of Crohn's in the past. His CT does show pretty much a diffuse col itis. I doubt that this is an ischemic colitis given his location. It very well could be his underl flaco Crohn's disease. It could be infectious, but he is not febrile and his white count is only minim ally elevated. His is on steroids. I would like to make arrangements for either a flex sig or colon oscopy later today to look and get biopsies. The results will determine further management and work- up. [id number]/[facility] #: [id number]
--- NOTE | 2017-08-31 15:40 | PRO ---
DATE OF PROCEDURE: 08/31/2017. PROCEDURE PERFORMED: Flexible sigmoidoscopy. INDICATION: Rectal bleeding. MEDICATIONS GIVEN: 2 mg IV Versed. PROCEDURE: After the flexible sigmoidoscopy procedure, including the risks, benefits and alternative s, not limited to perforation, surgery and/or were explained to Mr. Mayberry, written consent wa s then obtained. IV medication was given and a rectal exam was performed. It was unremarkable. An Olympus colonoscope was then inserted into the patient's rectum and advanced to the mid transverse co don. He had moderate to severe colitis throughout the mucosa. He have very large ulcers and very sm all ulcers. They did appear to have exudate over them, not typical for pseudomembranes; however, I d id take biopsies and fecal liquid aspirate to rule out C. diff. This appears to have more the appear ance of Crohn's disease. None of these were actively bleeding. There was brown liquid stool through out the part of the colon I did look. There was no active bleeding seen at all. Biopsies were taken . Aspirates were taken. The scope was then withdrawn from the patient. He tolerated the procedure well and was returned to the care of the ICU staff. IMPRESSION: 1. Flexible sigmoidoscopy with biopsies. 2. Moderate to severe colitis, numerous ulcerations, pseudopolyps, no active bleeding, likely consis tent with his Crohn's disease. 3. Biopsies were obtained. 4. Stool aspirate was obtained. 5. He is already on steroids for his COPD. I think at this point if the aspirates come back negativ e for C. diff, he has steroid refractory, Crohn's disease. We need to find a better medication for h im. Remicade may be that one. We will continue to follow along. [id number]/[facility] #: [id number]
[2017-08-31 15:43] LABS: ABS Basophils 0 10^3/ul (0-0.2); ABS Eosinophils 0 10^3/ul (0-0.6); ABS Lymphocytes 0.3 10^3/ul (1.0-4.8); ABS Monocytes 0.1 10^3/ul (0-0.8); ABS Neutrophils 6.8 10^3/ul (1.5-7.7); ABS Nucleated RBC 0 10^3/ul; Eosinophil % 0.3 % (0-6); Hematocrit 25 % (42-52); Hemoglobin 7.9 g/dl (14.0-18.0); Mean Corpuscular HGB Conc 31 g/dl (31-36); Mean Corpuscular Hemoglobin 23 pg (27-31); Mean Corpuscular Volume 73 fL (80-94); Mean Platelet Volume 7.2 um3 (7.4-10.4); Nucleated Red Blood Cells % 0.1; Platelet Count 253 10^3/ul (150-450); Red Blood Count 3.42 10^6/ul (4.00-5.40); Red Cell Distribution Width 23 % (10.5-15); White Blood Count 7.2 10^3/ul (3.5-10.8)
[2017-09-01 00:03] LABS: Hematocrit 26 % (42-52); Hemoglobin 8.1 g/dl (14.0-18.0)
[2017-09-01] MEDS: Insulin LISPRO* 1 UNITS UNIT SUBCUT SCH ×5 (03:29→21:43)
[2017-09-01] MEDS: metroNIDAZOLE IV 500 MG/100ML* 500 MG/100 ML BAG IVPB SCH ×3 (05:36→21:35)
[2017-09-01 06:04] LABS: ABS Basophils 0 10^3/ul (0-0.2); ABS Eosinophils 0 10^3/ul (0-0.6); ABS Lymphocytes 0.4 10^3/ul (1.0-4.8); ABS Monocytes 0.1 10^3/ul (0-0.8); ABS Nucleated RBC 0 10^3/ul; Eosinophil % 0 % (0-6); Hematocrit 27 % (42-52); Hemoglobin 8.8 g/dl (14.0-18.0); Lymphocyte % 4.8 % (25-47); Mean Corpuscular HGB Conc 32 g/dl (31-36); Mean Corpuscular Hemoglobin 24 pg (27-31); Mean Corpuscular Volume 73 fL (80-94); Mean Platelet Volume 7.2 um3 (7.4-10.4); Nucleated Red Blood Cells % 0.1; Platelet Count 295 10^3/ul (150-450); Red Blood Count 3.72 10^6/ul (4.00-5.40); Red Cell Distribution Width 23 % (10.5-15); White Blood Count 7.5 10^3/ul (3.5-10.8)
[2017-09-01 06:06] LABS: INR 1.1 (0.77-1.02)
[2017-09-01 06:19] LABS: EGFR Non-African American 86.5 (>60)
[2017-09-01] MEDS: Mometasone/Formoter 200/5 MDI INH SCH ×2 (07:44→19:48)
[2017-09-01] MEDS: Tiotropium CAP.INH* CAP.INH/18 MCG (USE ORDER SET !) INH SCH (07:44)
[2017-09-01] MEDS ORDERED: Magnesium Sulfate IV* 2 GM in NS 0.9% 100 ML* 100 ML IV ONE (08:25)
[2017-09-01] MEDS ORDERED: Perflutren Lipid Microsphere* 3 ML VIAL ONE (08:38)
[2017-09-01] MEDS: Diltiazem CD CAP* 180 MG PO SCH (08:56)
[2017-09-01] MEDS: Furosemide TAB* 20 MG PO SCH (08:56)
[2017-09-01] MEDS: Ciprofloxacin 0.3% OPTH.SOL* 5 ML BTL RIGHT EYE SCH ×3 (08:58→21:37)
[2017-09-01] MEDS: prednisoLONE 1% OPHTH.SUSP* 5 ML OPHTH.SUSP RIGHT EYE SCH ×3 (08:58→21:37)
[2017-09-01] MEDS ORDERED: Furosemide IV* 10 MG/ML 2 ML VIAL (20 MG) IV ONE (09:44)
--- NOTE | 2017-09-01 09:51 | PN ---
Subjective Date of Service: 09/01/17 Interval History: pt feels much better. Had "diarrhea" today , no blood in loose BM. congested and coughing, but off 02. Objective Active Medications: Acetaminophen (Tylenol Supp*) 650 mg NV Q6H PRN PRN Reason: FEVER/PAIN Albuterol (Ventolin 2.5 Mg/3 Ml Neb.Nkechi*) 2.5 mg INH Q2H PRN PRN Reason: SOB/WHEEZING Albuterol/Ipratropium (Duoneb (Albuterol 2.5 Mg/Ipratropium 0.5 Mg)) 1 neb INH Q4H PRN PRN Reason: SOB/WHEEZING Ciprofloxacin (Cipro 0.3% Opth*) 1 drop RIGHT EYE TID [facility] Last Admin: 09/01/17 08:58 Dose: 1 drop Device (Tiotropium Inhaler Device*) 1 each .SEE ORDER .USE w/ SPIRIVA CAPS [facility] Digoxin (Lanoxin Tab*) 0.125 mg PO 1700 JULITO Diltiazem HCl (Cardizem Cd Cap*) 180 mg PO DAILY [facility] Last Admin: 09/01/17 08:56 Dose: 180 mg Furosemide (Lasix Tab*) 20 mg PO DAILY [facility] Last Admin: 09/01/17 08:56 Dose: 20 mg Furosemide (Lasix Iv*) 20 mg IV ONCE ONE Stop: 09/01/17 09:45 Metronidazole/Sodium Chloride (Flagyl 500 Mg Ivpb*) 500 mg in 100 mls @ 100 mls /hr IVPB Q8H [facility] Last Admin: 09/01/17 05:36 Dose: 100 mls/hr Insulin Human Lispro (Humalog*) 0 units SUBCUT ACHS [facility]; Protocol Last Admin: 09/01/17 08:58 Dose: 3 units Methylprednisolone Sodium Succinate (Solu-Medrol 40 Mg) 40 mg IV Q12H [facility] Last Admin: 08/31/17 21:59 Dose: 40 mg Mometasone Furoate/Formoterol Fumar (Dulera 200/5 Mdi*) 2 puff INH BID [facility] Last Admin: 09/01/17 07:44 Dose: 2 puff Pantoprazole Sodium (Protonix Iv*) 40 mg IV Q12H [facility] Last Admin: 08/31/17 22:01 Dose: 40 mg Prednisolone Acetate (Pred Forte 1%*) 1 drop RIGHT EYE TID [facility] Last Admin: 09/01/17 08:58 Dose: 1 drop Tiotropium [place] (Spiriva Cap.Inh*) 1 cap INH DAILY [facility] Last Admin: 09/01/17 07:44 Dose: 1 cap Vital Signs - 8 hr 09/01/17 09/01/17 09/01/17 07:45 07:47 08:00 Pulse Rate 87 87 Respiratory 17 17 22 Rate O2 Sat by Pulse 98 98 Oximetry Oxygen Devices in Use Now: None Appearance: 71 yo M in nAd, aAOx3, very [place]. poor historian Eyes: No Scleral Icterus, PERRLA Ears/Nose/Mouth/Throat: NL Teeth, Lips, Gums, Mucous Membranes Moist Neck: NL Appearance and Movements; NL JVP, Trachea Midline Respiratory: Symmetrical Chest Expansion and Respiratory Effort, - - rales at b/ l bases Cardiovascular: - - irregular Abdominal: NL Sounds; No Tenderness; No Distention, No Hepatosplenomegaly Lymphatic: No Cervical Adenopathy Extremities: No Clubbing, Cyanosis, - - trace pedal edema b/l Skin: No Rash or Ulcers, No Nodules or Sclerosis Neurological: Alert and Oriented x 3, NL Muscle Strength and Tone Result Diagrams: 09/01/17 05:46 09/01/17 05:46 Microbiology and Other Data: Microbiology 08/31/17 02:28 Nasal Screen MRSA (PCR) - Final Nasal Mrsa Not Detected Assess/Plan/Problems-Billing Assessment: 71 yo m with h/o : DM2 CAD AFIB on warfarin COPD(on 2 L 02 prn at home) Crohn's disease HTN HLD RICHARD presents with hypovolemic shock due to GI hemorrhage - Patient Problems (1) GI bleed Comment: lower with hypovolemic shock and acute anemia due to it-resolved. S/p 3 U PRBC and [address] showed colitis, tagged RBC scan showed bleed at hepatic flexure Colonoscopy on 08/31/17 showed bleeding colon ulcerations resembling Crohn's Cont IV Solu Medrol since the cause of bleeding is likely Crohn's exacerbation. Also cont Flagyl for now as d/w Dr. Sherri valdez ani-inflammatory properties ( Stool c. diff neg). As outpatient pt shoudl be started on Remicade (pt used to be on it but his copay got very expensive. Now has supplemental insurance and hopes it will be cheaper) (2) COPD (chronic obstructive pulmonary disease) Comment: currently not in exacerbation,pt had been on prednisone since 02/2017. cont Dulera/ducisco (3) Diastolic CHF Comment: mild acute exacerbation due to transfusions at admission. will tx with Lasix 20 mg IV x1 in addition to reinstituting home dose of PO Lasix Although pt was not dx with CHF , had been on Lasix for "leg edema" Suspect he has chronic diastolic CHF will cont daily weights. Check Echo (4) DM2 (diabetes mellitus, type 2) Comment: cont ISS, holding metformin (5) Atrial fibrillation Comment: Tx with a dose of IV digoxin x 1. OFF PO meds for colonoscopy. HR controlled. will restart cardizem/digoxin (6) Chronic anticoagulation Comment: coumadin stopped. S/o FFP transfusion and tx with vit K. (7) DVT prophylaxis Comment: SCD's, anticoagulants contraindicated due to acute GI bleed Status and Disposition: inpatient
[2017-09-01] MEDS: Pantoprazole IV* 40 MG IV SCH ×2 (09:54→21:35)
[2017-09-01] MEDS: methylPREDNISolone SOD 40 MG* 1 ML VIAL IV SCH ×2 (09:54→21:35)
--- NOTE | 2017-09-01 10:35 | ECHO ---
Patient: LISA HARPER [facility] Rec#: [id number] : 1945 Date: 09/01/2017 Age: 71y Height: 190.5 cm / 75.0 in Weight: 122 kg / 268.9 lbs Sex: M BSA: 2.49 Room#: [facility] Admit Date#: 08/30/2017 Type: Inpatient Referring: Berenice Hodge MD Reading: Elton Lizarraga MD Director Of Ancillary Services: Mercedes Colindres RN RDCS CC: Harish Cabrera DO Transthoracic Echocardiogram Indication: CHF, edema BP: 139/73 HR: 78 Rhythm: A-Fib Findings History: A. fib, HTN, HLD, DM, COPD, RICHARD Technical Comments: The study is technically limited due to patient body habitus. The study is technically limited due to the patient's history of COPD. Completed at 0945. Left Ventricle: The left ventricular chamber size is normal. Moderate concentric left ventricular hypertrophy is observed. There is increased basal septal hypertrophy noted without evidence of an increased gradient across the left ventricular outflow tract. Global left ventricular wall motion and contractility are within normal limits.Normal variant inferior-basal wall motion. There is normal left ventricular systolic function. The estimated ejection fraction is 55-60%. The assessment of diastolic function is non-diagnostic. Left Atrium: The left atrium is moderate to severely dilated. Right Ventricle: The right ventricle is mildly dilated. The right ventricular global systolic function is low normal. Right Atrium: The right atrium is moderate to severely dilated. Aortic Valve: The aortic valve is trileaflet. The aortic valve leaflets are mildly thickened. There is aortic annular calcification. There is no evidence of aortic regurgitation. There is no evidence of aortic stenosis. Mitral Valve: There is mitral annular calcification. The mitral valve leaflets are mildly thickened. There is trace to mild mitral regurgitation. Tricuspid Valve: The tricuspid valve leaflets are normal. There is mild to moderate tricuspid regurgitation. There is evidence of mild pulmonary hypertension. Pulmonic Valve: The pulmonic valve appears normal. There is no evidence of pulmonic regurgitation. There is no pulmonic stenosis. Pericardium: There is no significant pericardial effusion. A pericardial fat pad is visualized. Aorta: There is mild dilatation of the ascending aorta. The aortic arch is not well visualized. There is mild dilatation of the aortic root. Pulmonary Artery: The main pulmonary artery appears normal. Venous: The inferior vena cava is dilated. There is less than 50% respiratory change in the inferior vena cava dimension. Contrast: Definity was used to optimize study. A total of 3 ml of diluted Definity was given IV. Conclusions There is normal left ventricular systolic function. The estimated ejection fraction is 55-60%. Global left ventricular wall motion and contractility are within normal limits. The left ventricular chamber size is normal. Moderate concentric left ventricular hypertrophy is observed. The left atrium is moderate to severely dilated. The right ventricle is mildly dilated. The right ventricular global systolic function is low normal. The right atrium is moderate to severely dilated. There is mild to moderate tricuspid regurgitation. There is evidence of mild pulmonary hypertension. There is mild dilatation of the ascending aorta. There is mild dilatation of the aortic root. Since the prior echocardiogram completed 02/16/15, there appears to be little change. Measurements Name Value Normal Range RVDdMajor (2D) 4.5 cm (2.2 - 4.4) RAd ISD 4CH 6.7 cm (3.4 - 4.9) RA (A4C)W 5.5 cm (2.9 - 4.6) IVSd (2D) 1.4 cm (0.6 - 1) LVPWd (2D) 1.4 cm (0.6 - 1) LVIDd (2D) 5.5 cm (3.6 - 5.4) LVIDs (2D) 4.1 cm - LV FS (2D) 25 % (25 - 45) Aortic Annulus 2.4 cm (1.4 - 2.6) Ao root diameter (2D) 3.8 cm (2.1 - 3.5) Ascending Ao 3.7 cm (2.1 - 3.4) LA dimension (AP) 2D 4.6 cm (2.3 - 3.8) LAd ISD 4CH 7.2 cm (2.9 - 5.3) LA ISD 4CH W 6.2 cm (2.5 - 4.5) Name Value Normal Range LA ESV SP 4CH (A/L) 123 ml - LA ESV SP 2CH (A/L) 66 ml - LA ESV BP (A/L) 100 ml - LA ESV SP 4CH (MOD) 111 ml - LA ESV SP 2CH (MOD) 65 ml - Name Value Normal Range MV E-wave Vmax 1.3 m/sec - MV deceleration time 191 msec - LV septal e' Vmax 0.09 m/sec - LV lateral e' Vmax 0.14 m/sec - LV E:e' septal ratio 14.4 ratio - LV E:e' lateral ratio 9.3 ratio - Name Value Normal Range AV Vmax 1.4 m/sec - AV VTI 26.3 cm - AV peak gradient 7.3 mmHg - AV mean gradient 4.4 mmHg - LVOT Vmax 1.1 m/sec - LVOT VTI 21.1 cm - LVOT peak gradient 4.8 mmHg - LVOT mean gradient 2.6 mmHg - Name Value Normal Range TR Vmax 2.4 m/sec - TR peak gradient 23 mmHg - RAP 15 mmHg - RVSP 38 mmHg - IVC diameter 2.6 cm - Name Value Normal Range PV Vmax 0.84 m/sec -
[2017-09-01] MEDS ORDERED: Digoxin TAB* 0.125 MG PO SCH (17:00)
[2017-09-01] MEDS ORDERED: Ondansetron INJ* 2 MG/ML VIAL IV PRN (20:33)
[2017-09-02] MEDS: metroNIDAZOLE IV 500 MG/100ML* 500 MG/100 ML BAG IVPB SCH ×2 (05:57→14:06)
[2017-09-02 06:11] LABS: Hematocrit 26 % (42-52); Hemoglobin 8.2 g/dl (14.0-18.0); Mean Corpuscular HGB Conc 32 g/dl (31-36); Mean Corpuscular Hemoglobin 23 pg (27-31); Mean Corpuscular Volume 73 fL (80-94); Mean Platelet Volume 7.1 um3 (7.4-10.4); Platelet Count 293 10^3/ul (150-450); Red Blood Count 3.51 10^6/ul (4.00-5.40); Red Cell Distribution Width 23 % (10.5-15); White Blood Count 15.8 10^3/ul (3.5-10.8)
[2017-09-02 06:15] LABS: INR 1.02 (0.77-1.02)
[2017-09-02 06:23] LABS: EGFR Non-African American 53.5 (>60)
[2017-09-02] MEDS: methylPREDNISolone SOD 40 MG* 1 ML VIAL IV SCH (08:49)
[2017-09-02] MEDS: Insulin LISPRO* 1 UNITS UNIT SUBCUT SCH ×2 (08:49→12:03)
[2017-09-02] MEDS: Pantoprazole IV* 40 MG IV SCH (08:49)
[2017-09-02] MEDS: prednisoLONE 1% OPHTH.SUSP* 5 ML OPHTH.SUSP RIGHT EYE SCH ×2 (08:50→14:06)
[2017-09-02] MEDS: Ciprofloxacin 0.3% OPTH.SOL* 5 ML BTL RIGHT EYE SCH ×2 (08:50→14:06)
[2017-09-02] MEDS: Diltiazem CD CAP* 180 MG PO SCH (08:51)
[2017-09-02] MEDS: Furosemide TAB* 20 MG PO SCH (08:56)
[2017-09-02] MEDS: Tiotropium CAP.INH* CAP.INH/18 MCG (USE ORDER SET !) INH SCH (09:19)
[2017-09-02] MEDS: Mometasone/Formoter 200/5 MDI INH SCH (09:19)
[2017-09-02] MEDS ORDERED: Iron Sucrose* 200 MG in NS 0.9% 100 ML* 100 ML IVPB ONE (11:15)
[2017-09-02 16:08] VITALS: BP 131/73
--- NOTE | 2017-09-02 22:20 | DS ---
DISCHARGE SUMMARY: DATE OF ADMISSION: 08/30/17 DATE OF DISCHARGE: 09/02/17 ADMITTING PROVIDER: Carter Forte MD PRIMARY CARE PHYSICIAN: Dr. Cabrera. ATTENDING PHYSICIAN ON DAY OF DISCHARGE: Aakash Hernandez MD CHIEF COMPLAINT: Blood per rectum PRINCIPAL DIAGNOSES: Hematochezia; Crohn's flare; acute blood loss anemia requiring transfusion of pRBCs and FFP. HISTORY OF PRESENT ILLNESS AND HOSPITAL COURSE: Jonathan Mayberry is a 71-year- old male with past medical history of Crohn's disease; diastolic CHF; hypertension; hyperlipidemia; atrial fibrillation, on warfarin; non-insulin- dependent diabetes mellitus type 2. Please see H & P for full details, but briefly on the morning of admission around 4:30, he developed bright red blood per rectum. He presented to [facility] and was transferred to [facility] with consultation with Dr. Aayush Polanco of Gastroenterology. Initial hemoglobin was 7.6, down from [place]'s initial 8.3 and blood pressures were initially in the 90s. He then demonstrated a 300 cc volume red watery bowel movement. He had a tagged red blood cell scan, which showed evidence of acute bleed near the hepatic flexure. His warfarin was held and he was given p.o. vitamin K and FFP. He was admitted to the ICU and given blood transfusions. For entire admission he received total blood transfusions of 3 packed red blood cells and 3 FFP. He had a flexible sigmoidoscopy with Dr. Polanco on 08/31/17, which showed [id number] colitis with numerous ulcerations, pseudopolyps , no active bleeding likely consistent with Crohn's disease. He had no further hematochezia after the flexible sigmoidoscopy and remained hemodynamically stable. He is being recommended to follow up with Dr. Polanco upon discharge and given his change in insurance, hopefully he can be restarted on Remicade, which he previously was on before 20% co-pay and associated cost were prohibitive for him. He also has a history of use of mesalamine but stopped for interaction with his Coumadin. He also had history of Humira use though it was stopped in the setting of pneumonia and then he developed itching when it was eventually restarted. His prior colonoscopies were with Dr. Bergeron in 2013 and 2015 and each time, he was not able to pass the hepatic flexure though secondary to strictures at that time. During this admission, the biopsy of sigmoid colon showed chronic active colitis, granulomata was present and dysplasia was absent. Stool studies were negative for C. diff. Dr. Polanco recommended continuing Flagyl for anti-inflammatory properties. He is being discharged with 5 more days of this medication after receiving IV in the hospital. Additional studies included CT abdomen and pelvis on 08/30/17 which demonstrated pericolonic inflammatory changes suggestive of colitis, nephrolithiasis without hydronephrosis, hepatomegaly, and bilateral spondylosis without spondylolisthesis at L5-S1. Dr. Feng of GI consulted last 2 days of admission and was recommended his Coumadin continued to be held until between 3 to 4 weeks after initiation of Remicade. The patient was also recommended to discontinue his Mobic upon discharge. The patient was also found to have microcytosis with elevated RDW and low MCV in the low 70s and RDW as high as 23 and was given empiric infusion of Venofer x1 dose. Iron studies were pending at the time of discharge, but now back with iron less than 15, iron sat percent of 4, and ferritin of 6.9. He was also given oral iron supplements, but may benefit from continued IV infusions in the outpatient setting. DISCHARGE MEDICATIONS: Include: 1. Albuterol inhaled q.6 hours p.r.n. 2. Ciprofloxacin 0.2% ophthalmic solution, right eye t.i.d. 3. Digoxin 0.125 mg p.o. q.a.m. 4. Diltiazem 180 mg p.o. q.a.m. 5. Ferrous gluconate 325 mg p.o. daily (new). 6. Breo Ellipta inhaled daily. 7. Lasix 20 mg p.o. daily. 8. Ketorolac 0.5% ophthalmic, right eye t.i.d. 9. Lisinopril 10 mg p.o. q.a.m. 10. Metformin 1000 mg p.o. b.i.d. 11. Flagyl 500 mg p.o. t.i.d. for 5 more days (new). 12. Allardt-3 fatty acid 1000 mg p.o. q.a.m. 13. Prednisolone 1% ophthalmic suspension, right eye t.i.d. 14. Prednisone 20 mg p.o. q.a.m. 15. Simvastatin 40 mg p.o. q.p.m. DISCHARGE DIET: Carbohydrate consistent heart healthy unchanged. ACTIVITY LEVEL: No restrictions. FOLLOWUP: He was instructed to call Dr. Harish Cabrera on Monday after discharge to arrange for followup appointment along with Dr. Aayush Polanco of Gastroenterology. He may benefit from outpatient IV iron infusions and follow- up labs should include a CBC and BMP. TIME SPENT ON DISCHARGE: 35 minutes. [id number]/[facility] #: [id number] ELODIA
== END 2017-09-02 16:10 | disposition home or self-care (01) | DRG 385 ==
LOC: ED 19:43 → ICU 20:37 → MED 08-31 22:37
PROVIDERS: ADMIT Hospitalist; ATTEND Internal Medicine
PROC: 30233K1 Transfusion of Nonautologous Frozen Plasma into Peripheral Vein, Percutaneous Approach (ICD-10-PCS; principal; 2017-08-30)
PROC: 30233N1 Transfusion of Nonautologous Red Blood Cells into Peripheral Vein, Percutaneous Approach (ICD-10-PCS; 2017-08-30)
PROC: 0DBN8ZX Excision of Sigmoid Colon, Via Natural or Artificial Opening Endoscopic, Diagnostic (ICD-10-PCS; 2017-08-31)
DX: K50.111 Crohn's disease of large intestine with rectal bleeding (principal); R57.1 Hypovolemic shock; I50.31 Acute diastolic (congestive) heart failure; D62 Acute posthemorrhagic anemia; J44.1 Chronic obstructive pulmonary disease with (acute) exacerbation; Z99.81 Dependence on supplemental oxygen; E11.9 Type 2 diabetes mellitus without complications; E78.5 Hyperlipidemia, unspecified; I48.91 Unspecified atrial fibrillation; F17.210 Nicotine dependence, cigarettes, uncomplicated; I11.0 Hypertensive heart disease with heart failure; I25.10 Atherosclerotic heart disease of native coronary artery without angina pectoris; I95.89 Other hypotension; G47.33 Obstructive sleep apnea (adult) (pediatric); Z79.84 Long term (current) use of oral hypoglycemic drugs; Z79.01 Long term (current) use of anticoagulants; Z79.52 Long term (current) use of systemic steroids; Z79.899 Other long term (current) drug therapy; Z82.49 Family history of ischemic heart disease and other diseases of the circulatory system
CPT/HCPCS: 36415; 74176; 78278; 80048; 80053; 82728; 83036; 83540; 83550; 83605; 83735; 83880; 85014; 85018; 85025; 85027; 85610; 85730; 86850; 86900; 86901; 86922; 86927; 87493; 87641; 88305; 93005; 93306; 94640; 94660; 99156; 99285; A9270-GY; A9512; A9538; C8929; J1160; J1756; J1940; J2250; J2405; J2920; J3010; J3430; J3475; J3480; J3490; P9017; P9040

== ENCOUNTER 2017-11-29 11:19 | Observation (INO) | payer MEDICARE ==
--- NOTE | 2017-11-29 11:41 | ED ---
GI/ HPI - HPI Summary HPI Summary: This pt is a 72 y/o male presenting to [facility] c/o bloody stools since 06:00 today. Pt reports at around 06:00 today he noticed he had bright red blood with bowel movements. He states that around 10:30 he had dark red blood with stools. Denies fever, chest pain, abd pain, nausea, vomiting, lightheadedness, dizziness. Pt has hx of GI bleeds in August 2017 and was taken off Coumadin. He states Coumadin was restarted on 11/14/17 and had an INR test of 2.9 yesterday. PMHx includes COPD, atrial fibrillation. Pt takes baby aspirin and coumadin. - History of Current Complaint Chief Complaint: EDGIBleed Time Seen by Provider: 11/29/17 11:32 Stated Complaint: RECTAL BLEEDING Hx Obtained From: Patient Onset/Duration: Started Hours Ago, Still Present Timing: Lasting Hours Current Severity: Moderate Pain Intensity: 0 - denies pain Associated Signs and Symptoms: Positive: Bright Red Blood w/Stool, Blood w/ Stool. Negative: Dizziness, Nausea, Vomiting, Fever, Lightheadedness, Abdominal Pain, Chest Pain Aggravating Factor(s): Nothing Alleviating Factor(s): Nothing - Additional Pertinent History Primary Care Physician: TD - Allergy/Home Medications Allergies/Adverse Reactions: Allergies Allergy/AdvReac Type Severity Reaction Status Date / Time No Known Allergies Allergy Verified 11/29/17 11:30 Home Medications: Home Medications Albuterol HFA INHALER* [Ventolin HFA Inhaler*] 2 puff INH Q4H PRN 11/29/17 [ History Confirmed 11/29/17] Balsalazide Sodium CAP(NF) [Colazal CAP(NF)] 2,250 mg PO TID 11/29/17 [History Confirmed 11/29/17] Budesonide Flexhaler 180 (NF) [Pulmicort Flexhaler 180 mcg/act (NF)] 180 puff INH BID 11/29/17 [History Confirmed 11/29/17] Multivit with Calcium,Iron,Min [Multiple Vitamins For Women] 1 cap PO DAILY 12/07 [History Confirmed 11/29/17] Umeclidin/Vilant 62.5 MDI(NF) [ANORO 62.5/25 Ellipta DEVICE (NF)] 1 puff INH DAILY 11/29/17 [History Confirmed 11/29/17] Warfarin TAB(*) [Coumadin TAB(*)] 4 mg PO DAILY 11/29/17 [History Confirmed 12/07] PMH/Surg Hx/FS Hx/Imm Hx Endocrine/Hematology History: Reports: Hx Diabetes Cardiovascular History: Reports: Hx Atrial Fibrillation, Hx Congestive Heart Failure, Hx Hypercholesterolemia, Hx Hypertension, Other Cardiovascular Problems /Disorders - Cardiac catheterization Respiratory History: Reports: Hx Asthma, Hx Chronic Obstructive Pulmonary Disease (COPD), Hx Pneumonia - 12/2016, Hx Sleep Apnea - No CPAP, 02 PRN, Other Respiratory Problems/Disorders - Pulmonary hypertension GI History: Reports: Hx Crohn's Disease, Hx Gastrointestinal Bleed - LGIB 08/2017 , Other GI Disorders - Inguinal hernia, Hepatomegaly History: Reports: Hx Kidney Stones - with hardened, dilated ureters Denies: Other Problems/Disorders Musculoskeletal History: Reports: Hx Arthritis - Legs and back, Hx Back Problems - L5-S1 spondylosis, Other Musculoskeletal History - spinal fx Sensory History: Reports: Hx Cataracts Denies: Hx Contacts or Glasses, Hx Glaucoma, Hx Hearing Aid Opthamlomology History: Reports: Hx Cataracts Denies: Hx Contacts or Glasses, Hx Glaucoma Neurological History: Denies: Other Neuro Impairments/Disorders - Surgical History Surgery Procedure, Year, and Place: CARDIAC CATH WITH STENTS Hx Anesthesia Reactions: No Infectious Disease History: No Infectious Disease History: Denies: Traveled Outside the [place] in Last 30 Days - Family History Known Family History: Positive: Diabetes, Other Family History: COPD - Social History Alcohol Use: None Substance Use Type: Reports: None Smoking Status (MU): Heavy Every Day Tobacco Smoker Type: Cigarettes Amount Used/How Often: 1 ppd Have You Smoked in the Last Year: Yes Review of Systems Negative: Fever, Chills Negative: Chest Pain Gastrointestinal: Other - Bloody stools Negative: Abdominal Pain, Vomiting, Nausea Neurological: Other - NEG: dizziness All Other Systems Reviewed And Are Negative: Yes Physical Exam - Summary Physical Exam Summary: VITAL SIGNS: Reviewed. GENERAL: Patient is a well-developed and nourished male who is lying comfortable in the stretcher. Patient is not in any acute respiratory distress. HEAD AND FACE: No signs of trauma. No ecchymosis, hematomas or skull depressions. No sinus tenderness. EYES: PERRLA, EOMI x 2, No injected conjunctiva, no nystagmus. EARS: Hearing grossly intact. Ear canals and tympanic membranes are within normal limits. MOUTH: Oropharynx within normal limits. NECK: Supple, trachea is midline, no adenopathy, no JVD, no carotid bruit, no c- spine tenderness, neck with full ROM. CHEST: Symmetric, no tenderness at palpation LUNGS: Crackles in both bases of the lungs. CVS: Regular rate and rhythm, S1 and S2 present, no murmurs or gallops appreciated. ABDOMEN: Soft, non-tender. No signs of distention. No rebound, no guarding, and no masses palpated. Bowel sounds are normal. RECTAL EXAM: normal sphincter tone, no gross blood, no melena. EXTREMITIES: FROM in all major joints, no edema, no cyanosis or clubbing. NEURO: Alert and oriented x 3. No acute neurological deficits. Speech is normal and follows commands. SKIN: Dry and warm Triage Information Reviewed: Yes Vital Signs On Initial Exam: Initial Vitals Temp Pulse Resp BP Pulse Ox 98.2 F 100 20 149/87 93 11/29/17 11:26 11/29/17 11:26 11/29/17 11:26 11/29/17 11:26 11/29/17 11:26 Vital Signs Reviewed: Yes Diagnostics - Vital Signs Vital Signs Temp Pulse Resp BP Pulse Ox 11/29/17 11:26 98.2 F 100 20 149/87 93 - Laboratory Result Diagrams: 11/30/17 07:15 11/29/17 11:50 Lab Statement: Any lab studies that have been ordered have been reviewed, and results considered in the medical decision making process. - Radiology Abdomen XR Xray Interpretation: Positive (See Comments) - IMPRESSION: Nonspecific bowel gas pattern. Large amount of stool throughout the colon. Dr. Ceron has reviewed this report. Radiology Interpretation Completed By: Radiologist - EKG 11:52 Cardiac Rate: NL - at 81 bpm EKG Rhythm: Atrial Fibrillation EKG Comparison: No Significant Change - unchanged from prior on 08/30/17 GIGU Course/Dx - Course Assessment/Plan: This pt is a 72 y/o male presenting to [facility] c/o bloody stools since 06:00 today. Pt reports at around 06:00 today he noticed he had bright red blood with bowel movements. He states that around 10:30 he had dark red blood with stools. Denies fever, chest pain, abd pain, nausea, vomiting, lightheadedness, dizziness. Pt has hx of GI bleeds in August 2017 and was taken off Coumadin. He states Coumadin was restarted on 11/14/17 and had an INR test of 2.9 yesterday. PMHx includes COPD, atrial fibrillation. Pt takes baby aspirin and coumadin. Blood work without any significant abnormality except for hemoglobin of 12, hematocrit of 37. INR is 2.52, PTT is 47.8. Magnesium is 1.6 for which the patient was given magnesium and the C-reactive protein is 46.5. Abdominal x-ray impression: Nonspecific bowel gas pattern. Large amount of stool throughout the colon. In the ED course the patient was given IV fluids and the patient has remained stable. Occult blood test positive. I discussed my physical exam, findings and test results with Dr. Quintanilla from the hospitalist services and he agrees to admit patient to her services. Patient is hemodynamically stable, alert and oriented x 3. - Diagnoses Provider Diagnoses: GI bleed - Physician Notifications Discussed Care Of Patient With: Radha Quintanilla - hospitalist Time Discussed With Above Provider: 14:06 Instructed by Provider To: Admit As Inpatient Discharge - Sign-Out/Discharge Documenting (check all that apply): Patient Departure - Admit to [facility] - Discharge Plan Condition: Stable Disposition: ADMITTED TO [facility] - Billing Disposition and Condition Condition: STABLE Disposition: Admitted to [facility] - Attestation Statements Document Initiated by Risa: Yes Documenting Scribe: Jessica Ramirez Provider For Whom Risa is Documenting (Include Credential): Pool Ceron MD Scribe Attestation: IJessica, scribed for Pool Ceron MD on 11/30/17 at 0739. Scribe Documentation Reviewed: Yes Provider Attestation: The documentation as recorded by the Jessica almaguer accurately reflects the service I personally performed and the decisions made by me, Pool Ceron MD
[2017-11-29] MEDS ORDERED: NS 0.9% 1000 ML* 1,000 ML IV ONE (11:43)
[2017-11-29 12:13] LABS: Hematocrit 37 % (42-52); Mean Corpuscular HGB Conc 32 g/dl (31-36); Mean Corpuscular Hemoglobin 27 pg (27-31); Mean Corpuscular Volume 83 fL (80-94); Mean Platelet Volume 7.2 um3 (7.4-10.4); Platelet Count 345 10^3/ul (150-450); Red Blood Count 4.51 10^6/ul (4.00-5.40); Red Cell Distribution Width 17 % (10.5-15); White Blood Count 10.1 10^3/ul (3.5-10.8)
[2017-11-29 12:24] LABS: INR 2.52 (0.77-1.02)
[2017-11-29 12:37] LABS: ABS Basophils 0 10^3/ul (0-0.2); ABS Eosinophils 0.3 10^3/ul (0-0.6); ABS Lymphocytes 1.1 10^3/ul (1.0-4.8); ABS Neutrophils 7.6 10^3/ul (1.5-7.7); ABS Nucleated RBC 0 10^3/ul; Lymphocyte % 10.8 % (25-47); Nucleated Red Blood Cells % 0
--- OUTSIDE RECORDS SUMMARY | 2017-11-29 12:56 | XMS REPORT ---
:1945 External Reference #:[id number] Author Organization [facility] Address [address] [place] [address] [place] [address] Phone [phone] Care Team Providers Name Role Phone Harish Cabrera D.O. Primary Care Physician Unavailable Payers Type Date Identification Payment Provider Subscriber Numbers Health Maintenance Expires: Policy Number: [employer] Jonathan Phelps (O) 09/19/2017 [id number] [employer] PayID: [id number] [address] [address] [place] [address] Medigap Part B Effective: 02/20/2017 Policy Number: Medicare Jonathan Mayberry [id number] PayID: [id number] [address] [place] [address] Medigap Part B Effective: [facility] 02/20/2017 [id number] [facility] PayID: [id number] [address] [place] [address] Problems Date Description Provider Status Onset: 10/16/2012 Crohn's disease Mookie Feng MD Active Note: stopped Remicaid due to cost Onset: 10/17/2011 Chronic obstructive lung disease Mookie Feng MD Active Onset: 10/16/2012 Paroxysmal atrial fibrillation Mookie Feng MD Active Onset: 10/16/2014 Anemia Mookie Feng MD Active Note: started MVI with low dose Fe BID 09/04/17 with MCV rising from 67 to 82 Onset: 10/16/2014 Hypersomnia with sleep apnea Mookie Feng MD Active Note: had CPAP removed from house at one point; Family History Date Family Member(s) Problem(s) Comments Father Stroke Age 62 Social History Type Date Description Comments Cigarette Use Light tobacco smoker (10 or fewer cigarettes/day) Daily Caffeine Consumes on average 1 cup of Did not speicfy amount of cups regular coffee per day General Hx Text Maxine 1965. Allergies, Adverse Reactions, Alerts Date Description Reaction Status Severity Comments 10/16/2017 NKDA active Medications Medication Date Status Form Strength Qnty SIG Indications Ordering Provider Multivitamin 10/16/ Active Tablets 30tabs 1 by Mookie Jackson Women 2018 mouth Jung, twice a day Digoxin 10/16/ Active Tablet 0.125mg 1 tablet Mookie Jackson 2018 by mouth Jung, daily Mesalamine-Nedra 10/16/ Active Kit 4gm Mookie Jackson nser 2018 MD Jung Balsalazide 10/16/ Active Capsules 750mg 120cap 3 tablets Mookie Jackson Disodium 2018 s three Jung, times a MD day Metformin HCL / Active Tablets 1000mg 1 by Unknown 0000 mouth twice a day Lisinopril / Active Tablets 10mg 1 by Unknown 0000 mouth every day Aspirin 81 Low / Active Chewtabs 81mg 1 by Unknown Dose 0000 mouth every day Simvastatin / Active Tablets 40mg take 1 Unknown 0000 tablet by mouth at bedtime Furosemide / Active Tablets 20mg 1 by Unknown 0000 mouth every day Claritin / Active Capsules 10mg 1 by Unknown 0000 mouth every day Anoro Ellipta / Active Aerosol 62.5-25mcg Milla 0000 /Inh TIMBO Giordano Pulmicort / Active Aerosol 180mcg/Act Steven Loyolahallance 0000 GiulianaPA Diltiazem CD / Active Caps ER 180mg 1 by Unknown 0000 24HR mouth every day Lovell-3 CF / Active Capsules 1000mg 1 by Unknown 0000 mouth once a day Ipratropium / Active Solution 0.5-2.5(3) 1 unit Unknown Volcano/Albuter 0000 mg/3ML every 6 ol Sulfate hours as needed Pulmicort / Hx Aerosol 180mcg/Act Clement Loyola 0000 - TIMBO Giordano 2017 Vital Signs Date Vital Result Comment 11/06/2017 Height 75 inches 6'3" Weight 275.25 lb Heart Rate 82 /min BP Systolic 117 mmHg BP Diastolic 78 mmHg Respiratory Rate 22 /min Body Temperature 97.3 F Pain Level 0 O2 % BldC Oximetry 96 % BMI (Body Mass Index) 34.4 kg/m2 10/16/2017 Height 75 inches 6'3" Weight 270.00 lb Heart Rate 80 /min irregular BP Systolic 130 mmHg BP Diastolic 86 mmHg Respiratory Rate 24 /min Pain Level 0 BMI (Body Mass Index) 33.7 kg/m2 Results Test Date Test Result H/L Range Note CBC Auto Diff 11/02/2017 White Blood Count 11.9 10^3/uL High 3.5-10.8 Red Blood Count 4.42 10^6/uL 4.00-5.40 Hemoglobin 12.0 g/dL Low 14.0-18.0 Hematocrit 37 % Low 42-52 Mean Corpuscular Volume 84 fL 80-94 Mean Corpuscular Hemoglobin 27 pg 27-31 Mean Corpuscular HGB Conc 32 g/dL 31-36 Red Cell Distribution Width 20 % High 10.5-15 Platelet Count 358 10^3/uL 150-450 Mean Platelet Volume 7.7 um3 7.4-10.4 Abs Neutrophils 9.2 10^3/uL High 1.5-7.7 Abs Lymphocytes 1.1 10^3/uL 1.0-4.8 Abs Monocytes 1.2 10^3/uL High 0-0.8 Abs Eosinophils 0.3 10^3/uL 0-0.6 Abs Basophils 0.1 10^3/uL 0-0.2 Abs Nucleated RBC 0 10^3/uL Granulocyte % 77.6 % 38-83 Lymphocyte % 9.6 % Low 25-47 Monocyte % 9.8 % High 0-7 Eosinophil % 2.5 % 0-6 Basophil % 0.5 % 0-2 Nucleated Red Blood Cells % 0.3 Iron & Iron Binding Capacity 11/02/2017 Iron 70 g/dL 50-212 Unsaturated Iron Binding 340 g/dL Total Iron Binding Capacity 410 g/dL 250-450 Transferrin 293 mg/dL 203-362 % Iron Saturation 17 % 15-55 Laboratory test finding 11/02/2017 C Reactive Protein 20.30 mg/L High < 8.01 Ferritin 11.3 ng/mL Low 24-336 Folic Acid (Folate) > 20.00 ng/mL >3.99 Vitamin B12 197 pg/mL 180-914 1 Laboratory test finding 10/17/2017 Ferritin <pending> Vitamin B12 <pending> C Reactive Protein <pending> 1 Normal Range 180 to 914 Indeterminate Range 145 to 180 Deficient Range <145 Procedures Date CPT Code Description Status 09/01/2017 56294 ECHO Transthorasic Realtime 2D W Doppler & Color Flow Completed Hosp 03/26/2015 57804 ECHO Transthorasic Realtime 2D W Doppler & Color Flow Completed Hosp 02/16/2015 15387 ECHO Transthorasic Realtime 2D W Doppler & Color Flow Completed Hosp 04/16/2013 Colonoscopy Completed Encounters Type Date Location Provider CPT E/M Dx Office Visit 10/16/2017 [facility] Mookie CiraJamila Feng, [address] K50.911 1:00p K92.2 J44.9 D64.9 T88.7xxA Office Visit 09/02/2017 4:05p [facility], [place] [address] K92.1 Hospitalists K50.911 Office Visit 09/01/2017 4:04p [facility], Berenice Hodge, [address] K92.2 Hospitalists George J44.9 I50.31 E11.9 Office Visit 08/31/2017 4:03p [facility] Ass[facility],yaw Hodge, 12134 K92.2 Hospitalists George R57.1 D64.9 I50.31 E11.9 I48.91 Office Visit 08/30/2017 4:02p [facility] [place], [address] K92.2 Assoc, Hospitalfatou Vazquez I95.9 J44.1 E11.9 I25.10 I48.91 Office Visit 02/16/2015 8:18a [facility], [place] [address] R55 Hospitalists E11.9 E83.42 I48.0 Office Visit 02/15/2015 8:18a [facility] [place], [address] R55 Hospitalfatou Vazquez E11.9 E83.42 I48.0 Office Visit 02/07/2015 11:00a [facility], Al Pham, [address]409 K52.9 Hospitalists George E11.9 Office Visit 02/06/2015 10:59a [facility], Milind Peres M.D. 33743 K52.9 Hospitalists I48.91 E11.9 Plan of Care Future Appointment(s):01/01/2018 2:45 pm - Mookie Feng MD at [facility] Jczazofeamwzpkvw35/17/2018 - Mookie Feng MDT88.7xxA Unsp adverse effect of drug or medicament, init encntrNew Labs:CBC Auto DiffComp Metabolic PanelC Reactive WehqtsnO10.9 Chronic obstructive pulmonary disease, kwbpenrctzoZ62.899 Other group home (current) drug yxlrzipP06.0 Paroxysmal atrial fibrillation
--- NOTE | 2017-11-29 13:00 | RAD ---
HISTORY: Gi bleed COMPARISONS: CT dated August 31, 2017 VIEWS: Frontal supine and upright views of the abdomen. FINDINGS: BOWEL: There is a nonspecific bowel gas pattern, with nondilated small bowel gas noted. There is a large amount of stool within the colon. CALCULI: There are no abnormal calculi. BONES AND SOFT TISSUES: Mild degenerative changes are noted. OTHER FINDINGS: The lung bases are clear. There is no subphrenic gas. IMPRESSION: NONSPECIFIC BOWEL GAS PATTERN. LARGE AMOUNT OF STOOL THROUGHOUT THE COLON.
[2017-11-29] MEDS ORDERED: Al Hydrox/Mg Hydrox/Simet LIQ* 30 ML UDC PO PRN (15:22)
[2017-11-29] MEDS ORDERED: Albuterol/Ipratropium NEB.SOL* Albuterol 2.5 MG/Ipratropium 0.5 MG 3 ML INH PRN (15:22)
[2017-11-29] MEDS ORDERED: Acetaminophen TAB* 325 MG PO PRN (15:22)
[2017-11-29] MEDS ORDERED: Ondansetron INJ* 2 MG/ML VIAL IV PRN (15:22)
[2017-11-29] MEDS ORDERED: Albuterol HFA INHALER* 8 gm MDI INH PRN (15:29)
[2017-11-29] MEDS ORDERED: Dextrose 50% Syringe 50 ML* 25 GM/50 ML SYRINGE IV PUSH PRN (15:34)
[2017-11-29] MEDS ORDERED: Magnesium Sulfate 2 GM IV* 2 GM/50 ML BAG IVPB ONE (15:58)
[2017-11-29] MEDS: Insulin LISPRO* 1 UNITS UNIT SUBCUT SCH ×2 (17:01→20:52)
[2017-11-29] MEDS: Atorvastatin* 20 MG TAB PO SCH (17:24)
--- NOTE | 2017-11-29 18:40 | CONS ---
GASTROENTEROLOGY CONSULT NOTE: DATE OF CONSULT: 11/29/17 REQUESTING PHYSICIAN: TIMBO Christie REASON FOR CONSULT: Rectal bleeding. HISTORY OF PRESENT ILLNESS: Mr. Mayberry is a 72-year-old gentleman with a history of coronary artery disease, AFib, diabetes, COPD, hypertension, hyperlipidemia, RICHARD ,and Crohn's disease, who presented to the ER with rectal bleeding x1 day. Mr. Mayberry is followed by Dr. Mookie Feng for his Crohn's disease. It seems that he has failed a number of medications due to intolerance and side effects. Most recently, he has been on Colazal 2250 mg t.i.d. He was hospitalized in August 2017 with rectal bleeding with associated hypotension and anemia requiring transfusions. A tagged RBC scan demonstrated blood in the hepatic flexure and CT showed colitis from the rectum to the hepatic flexure. A flex sig was performed on 08/31/17. The flex sig demonstrated [id number] colitis with numerous ulcerations, likely related to his Crohn's disease. It was felt that the bleeding was related to the ulcers, particularly in the setting of Coumadin. Mr. Mayberry tells me that his Coumadin was discontinued after that hospitalization. More recently, he has been doing well. He was recently restarted on the Coumadin in late October. He says that he has been having semi-formed to loose stools 5 to 6 times a day, which seemed to be within his baseline. He noticed this morning around 6 a.m. that he had a stool that had light red blood in it. He had another stool at 10:30 am that had darker red blood in it. He presented to the ER for evaluation. In the ER, he was hemodynamically stable without tachycardia or hypotension. He had another bowel movement in the ER, which was reportedly not bloody. He was admitted for observation. GI was consulted. At the time of interview, Mr. Mayberry says he feels very well overall and denies any complaints. Denies any abdominal pain or other GI symptoms. PAST MEDICAL HISTORY: Significant for diabetes, coronary artery disease, AFib, COPD, Crohn's disease, hypertension, hyperlipidemia, obstructive sleep apnea, and Coumadin use. PAST SURGICAL HISTORY: Cataracts and tonsillectomy. MEDICATIONS UPON ADMISSION: 1. Albuterol inhaler. 2. DuoNeb. 3. Balsalazide 2250 mg p.o. t.i.d. 4. Budesonide inhaler. 5. Digoxin. 6. Diltiazem. 7. Fluticasone. 8. Furosemide. 9. Lisinopril. 10. Metformin. 11. Multivitamin. 12. [place]-3 fish oil. 13. Simvastatin. 14. Umeclidinium inhaler. 15. Coumadin. 16. Iron. ALLERGIES: No known drug allergies. FAMILY HISTORY: Hypertension, coronary artery disease. SOCIAL HISTORY: History of tobacco use. REVIEW OF SYSTEMS: Twelve systems were reviewed, other than that mentioned in the HPI were unremarkable. PHYSICAL EXAM: Vital Signs: Temp 98.2, heart rate 85, blood pressure 114/78, respiratory rate 21, and 93% on room air. General Appearance: Chronically ill- appearing gentleman, in no apparent distress. Alert and oriented. Pleasant. is at bedside. HEENT: Mucous membranes are moist. Dentition is poor. Cardiovascular: Regular rate and rhythm. Lungs: Diffuse coarse breath sounds bilaterally. No wheezing. Abdomen: Positive bowel sounds. Obese, soft, nontender, nondistended. Rectal Exam: Positive stool in the rectal vault was brown. No red blood. Skin: Warm and dry. DIAGNOSTIC STUDIES/LAB DATA: Labs reviewed. White count 10.1, hematocrit 37.1 , and hemoglobin 12. Of note, hematocrit on 11/02/17 was also 37. His INR is 2.52. CRP is 46.55. For comparison, the CRP was 51 in August and 20 in October. Studies: Abdominal x-ray reviewed. Demonstrated nonspecific bowel gas pattern with large amount of stool throughout the colon. ASSESSMENT AND PLAN: This is a pleasant 72-year-old gentleman with a history of Crohn's disease and rectal bleeding most recently in August 2017, who presents with 2 episodes of rectal bleeding today. Mr. Mayberry had a subsequent bowel movement that was not bloody. He is hemodynamically stable and his hematocrit is within his baseline. His last endoscopy in August demonstrated active Crohn's disease with ulcers. It was suspected that he was having bleeding related to his active Crohn's disease in the setting of Coumadin. The Coumadin had been discontinued, but has now been restarted and he is therapeutic based on today's INR. Quite possible that a similar situation has occurred. The bleeding seems to be self-limited at this point and not significant given the stable blood counts and brown stool on rectal exam. - Recommend continued monitoring and serial hematocrits. If bleeding recurs, then we could discuss repeating a flex sig versus colonoscopy to further assess the state of his Crohn's disease and his colon. - Recommend follow-up in GI clinic with Dr Feng Thank you very much for this consult. [id number]/[facility] #: [id number] ELODIA
[2017-11-29] MEDS: Mometasone 220 MCG MDI INH SCH (20:15)
[2017-11-29] MEDS: BALSALAZIDE SODIUM 750 MG PO SCH (20:52)
--- NOTE | 2017-11-29 21:01 | HP ---
CC: Dr. Cabrera; Dr. Feng * ADMISSION HISTORY AND PHYSICAL: DATE OF ADMISSION: 11/29/17 PATIENT OF ADMITTING HOSPITALIST: Dr. Radha Quintanilla.* (DICTATED BY TIMBO GIPSON) PRIMARY CARE PROVIDER: Dr. Cabrera. PRIMARY INFORMATION CLERK BROKERAGE: Dr. Mookie Feng. CHIEF COMPLAINT: Bright red blood per rectum. HISTORY OF PRESENT ILLNESS: Mr. Mayberry is a 72-year-old gentleman with past medical history significant for Crohn's disease, diabetes mellitus, coronary artery disease, atrial fibrillation for which he has been chronically on warfarin, as well as COPD, who presented to the emergency room earlier today after 1 episode of bright red blood per rectum this morning. The patient notes that he had a bowel movement this morning upon waking up and he noticed some little red on the paper tissue after he wiped himself. Couple of hours later, he used the bathroom again and he noticed that his stools are tinged with some bright red blood. He denied any bernard bleeding per rectum or passing any clots. He denied any melena, hematemesis, abdominal pain, or changes in the bowel habits. He had a similar episode of August of this year, for which he was found to be profoundly anemic after multiple episodes of lower GI bleed that were thought to be related to an elevated INR. He was admitted back then and his warfarin was on hold for a long period of time. He had a flexible sigmoidoscopy by Dr. Feng that revealed evidence of severe colitis consistent with Crohn's disease. The patient has been off Coumadin until end of October and he resumed his Coumadin treatment about 10 days ago. He reports being in his usual state of health until this morning when he noticed that bleeding per rectum that was similar, however, not as severe to his episode back in August of this year. During his ED visit today, he had laboratory workup that revealed stable hemoglobin and hematocrit of 12 and 37 respectively. His chemistry panel showed normal BUN with no evidence of active GI bleed. His C-reactive protein was elevated at 46, which has been almost closer to baseline when he had his Crohn's flare-up back in August of this year. His INR was 2.5 today. He had abdominal x-rays that showed no evidence of free air or any other pathology. The patient himself denies any abdominal pain or shortness of breath. He denies any chest pain, headache, dizziness, weakness, or any other associated symptoms. He was afraid that his last episode of rectal bleed led to prolonged hospitalization, so he presented to the ED today before his bleeding gets any worse. PAST MEDICAL HISTORY: As mentioned above, significant for hypertension; hyperlipidemia; obstructive sleep apnea, for which he does not use CPAP at home ; also history of Crohn's disease; COPD; atrial fibrillation, on Coumadin; coronary artery disease, and type 2 diabetes mellitus. PAST SURGICAL HISTORY: Significant for bilateral cataract extraction and tonsillectomy. CURRENT MEDICATIONS: His medications at home include: 1. Albuterol inhaler MDI 2 puffs q.4 hours as needed for shortness of breath. 2. DuoNeb 2.5/0.5 one nebulizer q.6 hours as needed for shortness of breath. 3. Balsalazide 1500 mg p.o. b.i.d. 4. Pulmicort inhaler 180 mcg 1 puff inhaled b.i.d. 5. Digoxin 125 mcg p.o. daily. 6. Diltiazem extended release 180 mg p.o. daily. 7. Breo Ellipta MDI 1 puff MDI inhaled daily. 8. Lasix 20 mg p.o. daily. 9. Lisinopril 10 mg p.o. daily. 10. Glucophage 1000 mg p.o. b.i.d. 11. Multivitamins with calcium 1 tablet p.o. daily. 12. [place]-3 fatty acids 1000 mg p.o. daily. 13. Zocor 40 mg p.o. q.h.s. 14. Ellipta 1 puff inhaled daily. 15. Warfarin 4 mg p.o. daily. 16. Ferrous gluconate 325 mg p.o. daily. ALLERGIES: He has no known drug allergies. FAMILY HISTORY: Significant for coronary artery disease and hypertension. Denies any history of colorectal malignancies. SOCIAL HISTORY: The patient is a current smoker 1 pack per day for the past 50 years. He denies alcohol or recreational drug use. He is retired, lives with his , who carries the healthcare proxy, and he wishes to be a full code. REVIEW OF SYSTEMS: See HPI. Otherwise, 12 points review of systems were examined and were essentially negative. PHYSICAL EXAMINATION GENERAL: He is a pleasant, obese, older gentleman, in no acute distress or discomfort at the time of admission. VITAL SIGNS: Revealed temperature of 98.2, pulse of 80, blood pressure of 143/ 86, respirations of 22, with O2 sats of 93% on room air. HEENT: Head is normocephalic, atraumatic. Sclerae anicteric. PERRLA. EOMs intact. Oropharynx is pink and moist. NECK: Supple. Trachea midline. No cervical adenopathy or thyromegaly. LUNGS: There are decreased breath sounds bilaterally. Mild wheezing was noted throughout, but no rales or rhonchi. There is no chest wall retraction or labored breathing. HEART: Regular rate and rhythm without rubs, murmurs, or gallops. ABDOMEN: Soft, nontender, and nondistended. No hernias, masses, or hepatosplenomegaly. BACK: With normal curvature and no CVA tenderness. EXTREMITIES: Without cyanosis, clubbing, or edema. NEUROLOGIC: He is awake, alert, and oriented x3. Handgrip is equal bilaterally. Sensation is intact throughout. RECTAL: Exam performed by ED provider and found to be guaiac positive. LABORATORY WORKUP: CBC with white count of 10,000, hemoglobin of 12 and hematocrit of 37, platelets of 345. Chemistry panel with sodium of 137, potassium 3.5, chloride 103, CO2 of 28, BUN of 11, and creatinine 0.9. His glucose is 79, magnesium 1.6. LFTs within normal limits. CRP elevated at 46.5. Again, INR checked at 2.5 today. ACCESSORY DIAGNOSTIC DATA: EKG revealed no changes and abdominal x-ray with no evidence of free air or bowel obstruction. There is large amount of stool throughout the colon. IMPRESSION: A 72-year-old gentleman with past medical history significant for hypertension, hyperlipidemia, type 2 diabetes mellitus, coronary artery disease , atrial fibrillation and Crohn's disease, who presented to the emergency room after one episode of lower gastrointestinal bleed with history of similar episodes in August that was related to severe colitis. The patient will be admitted under hospitalist services for the following. ASSESSMENT AND PLAN: 1. Lower gastrointestinal bleed. The patient appeared to be hemodynamically stable and there is no active GI bleed at the time of admission. He only had an episode of minimal bright red blood per rectum upon wiping and small amount passing through the stools. He denied any significant symptoms such as weakness , chest pain, headache or dizziness, and his H and H appear stable at the time of admission. I did touch base with GI for consultation and I spoke with Dr. Jade Mehta, who agreed to see the patient. For the time being, I will keep him on clear liquid diet and I will stop his Coumadin with daily INR checks. 2. History of Crohn's disease. The patient has been maintained on Colazal 1500 mg b.i.d. and I will continue his current dose. I also explained to him that if he continues to have recurrent lower gastrointestinal bleed that he might need to go for another flexible sigmoidoscopy during this admission to rule out any active bleeding. 3. Diabetes mellitus. He has been on metformin at home, which I will hold and cover him with Humalog per sliding scale. 4. Coronary artery disease. I will continue his digoxin. 5. Hypertension. We will continue his lisinopril. 6. Hyperlipidemia. We will continue his statin coverage. 7. Atrial fibrillation, on warfarin. His INR at 2.5 with no active gastrointestinal bleed. At this point, I will not reverse his warfarin and I will just hold it with daily INR check. 8. Obstructive sleep apnea. The patient is not using CPAP at home. We will maintain him on 3 L oxygen per nasal cannula per home setting. 9. DVT prophylaxis: He is on Coumadin with therapeutic INR and given his lower gastrointestinal bleed, I will hold off any additional chemical coverage. 10. Code status: He wishes to be a full code. TIME SPENT: Approximately 60 minutes spent admitting this patient, for which greater than 50% of that time on taking history and performing physical exam. I went on and discussed the case with my attending, who agreed to plan of care, and we will await recommendation from GI regarding this patient. TIMBO GIPSON [id number]/[facility] #: [id number] ELODIA
[2017-11-29 21:04] LABS: Urine Appearance Cloudy; Urine Blood Negative (Negative); Urine Color Yellow; Urine Ketones Negative (Negative); Urine Protein Negative (Negative); Urine Specific Gravity 1.019 (1.010-1.030); Urine Urobilinogen Negative (Negative)
[2017-11-30 07:24] LABS: ABS Basophils 0.1 10^3/ul (0-0.2); ABS Eosinophils 0.3 10^3/ul (0-0.6); ABS Lymphocytes 0.8 10^3/ul (1.0-4.8); ABS Monocytes 0.9 10^3/ul (0-0.8); ABS Neutrophils 6.5 10^3/ul (1.5-7.7); ABS Nucleated RBC 0 10^3/ul; Eosinophil % 3.8 % (0-6); Hematocrit 35 % (42-52); Hemoglobin 11.4 g/dl (14.0-18.0); Lymphocyte % 8.9 % (25-47); Mean Corpuscular HGB Conc 32 g/dl (31-36); Mean Corpuscular Hemoglobin 27 pg (27-31); Mean Corpuscular Volume 83 fL (80-94); Mean Platelet Volume 6.8 um3 (7.4-10.4); Nucleated Red Blood Cells % 0; Platelet Count 313 10^3/ul (150-450); Red Blood Count 4.24 10^6/ul (4.00-5.40); Red Cell Distribution Width 17 % (10.5-15); White Blood Count 8.6 10^3/ul (3.5-10.8)
[2017-11-30 07:39] LABS: EGFR Non-African American 91.1 (>60)
[2017-11-30] MEDS: Fluticasone/Vilanterol MDI(NF) 100/25 MDI INH SCH (07:46)
[2017-11-30] MEDS: Umeclidin/Vilant 62.5 MDI 62.5/25 mcg 14 INH ELLIPTA DEVICE INH SCH (07:46)
[2017-11-30 07:55] LABS: INR 2.35 (0.77-1.02)
[2017-11-30] MEDS: Insulin LISPRO* 1 UNITS UNIT SUBCUT SCH ×4 (08:28→21:27)
[2017-11-30] MEDS: Furosemide TAB* 20 MG PO SCH (08:31)
[2017-11-30] MEDS: Diltiazem CD CAP* 180 MG PO SCH (08:31)
[2017-11-30] MEDS: Digoxin TAB* 0.125 MG PO SCH (08:31)
[2017-11-30] MEDS: Lisinopril TAB* 10 MG PO SCH (08:31)
[2017-11-30] MEDS: BALSALAZIDE SODIUM 750 MG PO SCH ×2 (08:43→21:27)
--- NOTE | 2017-11-30 13:29 | PN ---
Subjective Date of Service: 11/30/17 Interval History: HOSPITALIST PROGRESS NOTE Patient seen and examined at bedside. Care reviewed and d/w Sagar Witt RN. He feels well today. Had BM earlier today with no blood. Denies abdominal pain, N/V. Family History: Unchanged from Admission Social History: Unchanged from Admission Past Medical History: Unchanged from Admission Objective Active Medications: Acetaminophen (Tylenol Tab*) 975 mg PO Q6H PRN PRN Reason: FEVER/PAIN Al Hydrox/Mg Hydrox/Simethicone (Maalox Plus*) 30 ml PO Q6H PRN PRN Reason: INDIGESTION Albuterol (Ventolin Hfa Inhaler*) 2 puff INH Q4H PRN PRN Reason: WHEEZING Albuterol/Ipratropium (Duoneb (Albuterol 2.5 Mg/Ipratropium 0.5 Mg)) 1 neb INH [id number] AWAKE PRN PRN Reason: sob/wheezing Atorvastatin Calcium (Lipitor*) 20 mg PO QPM [facility] Last Admin: 11/29/17 17:24 Dose: 20 mg Balsalazide (Colazal Cap(Nf)) 1,500 mg PO BID [facility]; Protocol Last Admin: 11/30/17 08:43 Dose: Not Given Dextrose (D50w Syringe 50 Ml*) 12.5 gm IV PUSH .FOR FS < 60 - SS PRN PRN Reason: FS < 60 Digoxin (Lanoxin Tab*) 0.125 mg PO QAM [facility] Last Admin: 11/30/17 08:31 Dose: 0.125 mg Diltiazem HCl (Cardizem Cd Cap*) 180 mg PO QAM [facility] Last Admin: 11/30/17 08:31 Dose: 180 mg Fluticasone/Vilanterol (Breo Ellipta Mdi 100/25(Nf)) 1 puff INH DAILY [facility] Last Admin: 11/30/17 07:46 Dose: Not Given Furosemide (Lasix Tab*) 20 mg PO DAILY [facility] Last Admin: 11/30/17 08:31 Dose: 20 mg Insulin Human Lispro (Humalog*) 0 units SUBCUT ACHS [facility]; Protocol Last Admin: 11/30/17 12:25 Dose: Not Given Lisinopril (Prinivil Tab*) 10 mg PO QAM [facility] Last Admin: 11/30/17 08:31 Dose: 10 mg Mometasone Furoate (Asmanex 220 Mcg Mdi *) 1 puff INH QPM [facility] Last Admin: 11/29/17 20:15 Dose: 1 puff Ondansetron HCl (Zofran Inj*) 4 mg IV Q4H PRN PRN Reason: NAUSEA/VOMITING Umeclidinium/Vilanterol (Anoro 62.5/25 Ellipta Device (Nf)) 1 inh INH DAILY [facility] Last Admin: 11/30/17 07:46 Dose: Not Given Vital Signs - 8 hr 11/30/17 11/30/17 07:28 08:31 Temperature 97.6 F Pulse Rate 81 81 Respiratory 22 Rate Blood Pressure 142/78 (mmHg) O2 Sat by Pulse 92 Oximetry Oxygen Devices in Use Now: None Appearance: Pleasant gentleman sitting up in bed in NAD. Eyes: No Scleral Icterus Ears/Nose/Mouth/Throat: Mucous Membranes Moist Neck: Trachea Midline Respiratory: Symmetrical Chest Expansion and Respiratory Effort, Clear to Auscultation Cardiovascular: RRR - Normal S1 and S2 Abdominal: NL Sounds; No Tenderness; No Distention Neurological: Alert and Oriented x 3, NL Muscle Strength and Tone Result Diagrams: 11/30/17 07:15 11/30/17 07:15 Assess/Plan/Problems-Billing Assessment: Mr Mayberry is a 72yo M with PMH of Crohn's disease, HTN, HLD, RICHARD (not on CPAP) , COPD, Afib on AC with warfarin, CAD, type 2 DM, recent admission for LGI bleed , who presented to ED with another episode of hematochezia. - Patient Problems (1) Lower GI bleed Comment: - Likely secondary to Crohn's colitis in the setting of Warfarin use. - No further episodes today - continue to monitor. - GI input appreciated - if recurrence will pursue flex sig or colonoscopy. (2) Crohn's disease Comment: - Continue Colazal. (3) Atrial fibrillation Comment: - Continue Cardizem/Digoxin. - Warfarin on hold for now, but INR still therapeutic. (4) DM2 (diabetes mellitus, type 2) Comment: - Metformin on hold while in the hospital. - Continue Lispro SS. (5) HTN (hypertension) Comment: - Controlled - continue lisinopril and diltiazem. (6) DVT prophylaxis Comment: - SCD's, pharmacological prophylaxis contraindicated due to GI bleed (7) Full code status
[2017-11-30 16:06] LABS: Hematocrit 37 % (42-52)
[2017-11-30] MEDS ORDERED: Nicotine GUM* 2 MG PO PRN (17:04)
[2017-11-30] MEDS ORDERED: Mouth Piece, Nicotine* 1 EACH CARTRIDGE INH PRN (17:04)
[2017-11-30] MEDS ORDERED: Nicotine Inhaler* 10 MG AMP INH PRN (17:04)
[2017-11-30] MEDS: Atorvastatin* 20 MG TAB PO SCH (18:08)
[2017-11-30] MEDS: Nicotine PATCH 21 MG/24 HR* PATCH TRANSDERM SCH (18:09)
[2017-11-30] MEDS: Mometasone 220 MCG MDI INH SCH (19:56)
[2017-11-30] MEDS ORDERED: Nicotine Patch Removal NOTE FOLLOW UP SCH (21:00)
[2017-12-01 05:50] LABS: ABS Basophils 0 10^3/ul (0-0.2); ABS Eosinophils 0.3 10^3/ul (0-0.6); ABS Lymphocytes 0.9 10^3/ul (1.0-4.8); ABS Neutrophils 6.3 10^3/ul (1.5-7.7); ABS Nucleated RBC 0 10^3/ul; Eosinophil % 3.9 % (0-6); Hematocrit 37 % (42-52); Hemoglobin 12.1 g/dl (14.0-18.0); Lymphocyte % 10.1 % (25-47); Mean Corpuscular HGB Conc 32 g/dl (31-36); Mean Corpuscular Hemoglobin 27 pg (27-31); Mean Corpuscular Volume 83 fL (80-94); Nucleated Red Blood Cells % 0.1; Platelet Count 300 10^3/ul (150-450); Red Cell Distribution Width 17 % (10.5-15); White Blood Count 8.5 10^3/ul (3.5-10.8)
[2017-12-01 06:09] LABS: EGFR Non-African American 85.1 (>60)
[2017-12-01] MEDS: Umeclidin/Vilant 62.5 MDI 62.5/25 mcg 14 INH ELLIPTA DEVICE INH SCH (07:31)
[2017-12-01] MEDS: Fluticasone/Vilanterol MDI(NF) 100/25 MDI INH SCH (07:31)
[2017-12-01 07:59] VITALS: BP 134/66
[2017-12-01 08:01] LABS: INR 2.35 (0.77-1.02)
[2017-12-01] MEDS: Lisinopril TAB* 10 MG PO SCH (08:07)
[2017-12-01] MEDS: Nicotine PATCH 21 MG/24 HR* PATCH TRANSDERM SCH (08:07)
[2017-12-01] MEDS: Furosemide TAB* 20 MG PO SCH (08:07)
[2017-12-01] MEDS: Digoxin TAB* 0.125 MG PO SCH (08:07)
[2017-12-01] MEDS: Diltiazem CD CAP* 180 MG PO SCH (08:07)
[2017-12-01] MEDS: BALSALAZIDE SODIUM 750 MG PO SCH (08:08)
[2017-12-01] MEDS: Insulin LISPRO* 1 UNITS UNIT SUBCUT SCH ×2 (08:17→11:06)
[2017-12-01] MEDS: KCL 10 MEQ/50 ML IVPREMIX* 10 MEQ/50 ML BAG IV SCH ×3 (08:48→11:05)
[2017-12-01] MEDS: Potassium Chlor TAB* 20 MEQ TAB.ER PO SCH ×2 (08:48→11:06)
--- NOTE | 2017-12-02 22:53 | DS ---
CC: Dr. Harish Cabrera; [employer], Dr. Feng; Dr. Radha Quintanilla; Dr. Aakash Hernandez, [facility] DISCHARGE SUMMARY: DATE OF ADMISSION: 11/29/17 DATE OF DISCHARGE: 12/01/17 DISCHARGE DIAGNOSIS: Lower gastrointestinal bleed secondary to Crohn's disease. SECONDARY DIAGNOSES: 1. Crohn's disease. 2. Hypertension. 3. Hyperlipidemia. 4. Obstructive sleep apnea, not on continuous positive airway pressure. 5. Chronic obstructive pulmonary disease. 6. Atrial fibrillation, on anticoagulation with warfarin. 7. Coronary artery disease. 8. Type 2 diabetes. 9. Recent admission for lower gastrointestinal bleed. MEDICATION LIST: 1. Multivitamin 1 capsule p.o. daily. 2. Pulmicort 180 mcg 1 puff inhaled b.i.d. 3. Anoro 1 puff inhaled daily. 4. Colazal 2250 mg p.o. t.i.d. 5. Albuterol HFA 2 puffs inhaled q.4 hours p.r.n. shortness of breath. 6. Digoxin 125 mcg p.o. daily. 7. DuoNeb 1 nebulization q.6 hours p.r.n. shortness of breath. 8. Breo 1 puff inhaled daily. 9. Furosemide 20 mg p.o. daily. 10. Lisinopril 10 mg p.o. q.a.m. 11. Fish oil 1000 mg p.o. q.a.m. 12. Metformin 1000 mg p.o. b.i.d. with meals. 13. Cardizem CD 180 mg p.o. q.a.m. 14. Simvastatin 40 mg p.o. q.p.m. 15. Ferrous gluconate 325 mg p.o. daily. 16. Medication Change: Warfarin 4 mg Mondays, Wednesdays, and Fridays; and 3 mg Sundays, Tuesdays, , and Saturdays. HOSPITAL COURSE: Mr. Mayberry is a 72-year-old male with a past medical history as stated above that was initially admitted to [facility] [place], [place] in August. On that admission, the patient presented with a lower GI blee d, had a flex sigmoidoscopy done that showed [id number] colitis, numerous ulcerations with a polyp, no active bleeding, consistent with his Crohn's disease. He was discharged home off warfarin at that point. He followed up with his primary care provider and was restarted on warfarin. He stat es that the week prior to this admission, he had his warfarin dose increased and the last INR as outp atient had been 2.9. He presented to the emergency room on 11/29/17 after 1 episode of hematochezia at home. His INR on a dmission was 2.5. He was seen in consultation by GI (Dr. Cannon) and but at the time of her evaluation, the patien t had had a subsequent bowel movement with no blood. He was hemodynamically stable and his H and H w as within his baseline. She felt that the bleeding was likely self-limited at this point and not sig nificant given the stable blood count and brown stool on her rectal exam. Her recommendation was for continued monitoring with serial hematocrits and if bleeding recurs, consideration would be given re peating a flex sigmoidoscopy versus colonoscopy to further assess the state of his Crohn's disease an d his colon. The patient had no further episodes of bleeding in the hospital and his H and H remained stable arou nd . His warfarin was held, but his INR was therapeutic around 2.3. PLAN: The plan at this point is to discharge the patient home on the lower dose warfarin with the go al INR between 2 and 2.5. The hope is that maintaining his INR on the lower end of the spectrum woul d prevent further bleeding. The patient and the verbalized understanding of the planning and he is medically stable for disc harge today. The plan is for him to have followup earlier next with Dr. Cabrera and if not possible, to follow up at the [facility] with another INR level. He was also advised that he needs to follow up with Dr. Feng. PHYSICAL EXAMINATION: Vital Signs: Temperature 97.4, heart rate is 74, respiratory rate is 16, oxyg en saturation is 94% on room air, blood pressure is 134/66. General: The patient is a pleasant elde rly gentleman sitting up in bed, in no acute distress. CVS: Normal S1, S2. Regular rate and rhythm . Chest: Breath sounds bilaterally with no added sounds. Abdomen: Soft. Bowel sounds are present. Neuro: He is alert and oriented x3. Able to move all 4 extremities. DIET: Heart-healthy, consistent carb diet. ACTIVITIES: As tolerated. DISPOSITION: To home. STATUS WHILE IN THE HOSPITAL: Observation. Please keep in mind this a summarized version of this patient's hospital stay. If you need more info rmation, please fee free to call me at [phone] or please obtain the full medical records. TIME SPENT: Approximately 45 minutes was spent to complete this discharge. [id number]/[facility] #: [id number]
== END 2017-12-01 12:20 | disposition home or self-care (01) ==
LOC: ED 11:19 → MED 15:41
PROVIDERS: ADMIT Internal Medicine; ATTEND Internal Medicine
DX: K92.2 Gastrointestinal hemorrhage, unspecified (principal); K50.90 Crohn's disease, unspecified, without complications; I10 Essential (primary) hypertension; E78.5 Hyperlipidemia, unspecified; G47.33 Obstructive sleep apnea (adult) (pediatric); J44.9 Chronic obstructive pulmonary disease, unspecified; I48.91 Unspecified atrial fibrillation; I25.10 Atherosclerotic heart disease of native coronary artery without angina pectoris; Z79.01 Long term (current) use of anticoagulants; E11.9 Type 2 diabetes mellitus without complications; F17.210 Nicotine dependence, cigarettes, uncomplicated
CPT/HCPCS: 36415; 74019; 80048; 80053; 81003; 82272; 83690; 83735; 84484; 85014; 85018; 85025; 85610; 85730; 86140; 93005; 94640; 99283; 99406; A9270-GY; G0378; J3475; J3480

== ENCOUNTER 2018-06-13 05:30 | Inpatient (IN) | payer MEDICARE ==
[2018-06-13] MEDS ORDERED: NS 0.9% 1000 ML** 1,000 ML IV ONE (05:44)
--- NOTE | 2018-06-13 05:44 | ED ---
GI/ HPI - HPI Summary HPI Summary: Pt. is a 72 y.o male who presents to the ER for bright red blood in stool starting last night. Pt. notes a hx of Crohn's disease and follows with Dr. Feng. He is currently on prednisone 20mg BID and balsalazide. Pt. states he started with diarrhea last night and bright red blood in stools that continued into today. He notes minimal lower abd. tenderness. Past hx of HTN, COPD, afib, crohns, DM. Pt. currently not anticoagulated, use to take coumadin but dc after an episode of bleeding last year. Pt. notes mild increase in SOB today. Denies CP, fever, vomiting, syncope , dizzy. Sxs are moderate in severity. No current modifying factors. - History of Current Complaint Chief Complaint: EDGIBleed Time Seen by Provider: 06/13/18 05:43 Stated Complaint: RECTAL BLEEDING PER PTC Hx Obtained From: Patient Pain Intensity: 1 - Additional Pertinent History Primary Care Physician: TD - Allergy/Home Medications Allergies/Adverse Reactions: Allergies Allergy/AdvReac Type Severity Reaction Status Date / Time No Known Allergies Allergy Verified 11/29/17 11:30 Home Medications: Home Medications Alendronate Sodium 70 mg PO WEEKLY 06/13/18 [History Confirmed 06/13/18] PMH/Surg Hx/FS Hx/Imm Hx Previously Healthy: Yes Endocrine/Hematology History: Reports: Hx Diabetes Cardiovascular History: Reports: Hx Angina, Hx Atrial Fibrillation, Hx Congestive Heart Failure, Hx Hypercholesterolemia, Hx Hypertension, Other Cardiovascular Problems/Disorders - Cardiac catheterization Respiratory History: Reports: Hx Asthma, Hx Chronic Obstructive Pulmonary Disease (COPD), Hx Pneumonia - 12/2016, Hx Sleep Apnea - No CPAP, 02 PRN, Other Respiratory Problems/Disorders - Pulmonary hypertension GI History: Reports: Hx Crohn's Disease, Hx Gastrointestinal Bleed - LGIB 08/2017 , Other GI Disorders - Inguinal hernia, Hepatomegaly History: Reports: Hx Kidney Stones - with hardened, dilated ureters Denies: Other Problems/Disorders Musculoskeletal History: Reports: Hx Arthritis - Legs and back, Hx Back Problems - L5-S1 spondylosis, Other Musculoskeletal History - spinal fx Sensory History: Reports: Hx Cataracts, Hx Hearing Aid Denies: Hx Contacts or Glasses, Hx Glaucoma Opthamlomology History: Reports: Hx Cataracts Denies: Hx Contacts or Glasses, Hx Glaucoma Neurological History: Denies: Other Neuro Impairments/Disorders - Surgical History Surgery Procedure, Year, and Place: CARDIAC CATH WITH STENTS Hx Anesthesia Reactions: No Infectious Disease History: No Infectious Disease History: Denies: Traveled Outside the [place] in Last 30 Days - Family History Known Family History: Positive: Diabetes, Other Family History: COPD - Social History Occupation: Retired Lives: With Family Alcohol Use: None Substance Use Type: Reports: None Smoking Status (MU): Heavy Every Day Tobacco Smoker Type: Cigarettes Amount Used/How Often: 1 ppd Have You Smoked in the Last Year: Yes Review of Systems Constitutional: Negative Negative: Fever, Chills Cardiovascular: Negative Negative: Palpitations, Chest Pain Positive: Shortness Of Breath Positive: Other - bright red blood in stool Genitourinary: Negative Neurological: Negative All Other Systems Reviewed And Are Negative: Yes Physical Exam Triage Information Reviewed: Yes Vital Signs On Initial Exam: Initial Vitals Temp Pulse Resp BP Pulse Ox 98.2 F 114 28 117/83 97 06/13/18 05:30 06/13/18 05:30 06/13/18 05:30 06/13/18 05:30 06/13/18 05:30 Vital Signs Reviewed: Yes Appearance: Positive: Well-Appearing - Pt. lying in bed in NAD. Pleasant. present. Skin: Positive: Warm, Dry Head/Face: Positive: Normal Head/Face Inspection Eyes: Positive: Normal, EOMI Neck: Positive: Supple Respiratory/Lung Sounds: Positive: Other - Mild diffuse rhonchi throughout. Cardiovascular: Positive: Normal, RRR Abdomen Description: Positive: Other: - Abd. is soft with mild diffuse tenderness to lower abd. No rebound tenderness or guarding. Rectal exam performed with pt.'s nurse, Neela. Small amount of dried bright red blood on skin. Rectal exam reveals maroon colored stool. No gross bleeding. Musculoskeletal: Positive: Normal, Strength/ROM Intact Neurological: Positive: Normal, CN Intact II-III Psychiatric: Positive: Affect/Mood Appropriate Diagnostics - Vital Signs Vital Signs Temp Pulse Resp BP Pulse Ox 06/13/18 05:30 98.2 F 114 28 117/83 97 - Laboratory Result Diagrams: 06/13/18 11:23 06/13/18 06:04 Lab Statement: Any lab studies that have been ordered have been reviewed, and results considered in the medical decision making process. GIGU Course/Dx - Course Course Of Treatment: Pt. presenting for bright red blood per rectum. Mildly tachycardic. BP stable at 117/83. No gross bleeding on exam. IV placed and pt. on monitor. Labs pending. Type and screen ordered. H and H stable at 11.6 and 35 which is slightly decreased from last week. 0624: Pt. sat up to use bathroom and pressure dropped to 69/50. Second line placed and NSS given. BP improved. 0640: GI consulted. I spoke with Dr. Segovia. He would like pt. covered for potential rapid upper GI bleed as well protonix bolus and drip. Pt.' s BP improving with NSS bolus to 124/69. Type and crossed for 1unit PRBC if needed. Hospitalist consulted, Dr. Hodge, who accepts pt. to her service. - Diagnoses Differential Diagnoses - Male: Hemorrhoids, Peptic Ulcer Disease, Rectal Fissure Provider Diagnoses: GI bleed, Hypotension - Critical Care Time Critical Care Time: 30-74 min - 30 minutes including direct pt. care and consultation Discharge - Sign-Out/Discharge Documenting (check all that apply): Patient Departure Patient Received Moderate/Deep Sedation with Procedure: No - Discharge Plan Condition: Stable Disposition: ADMITTED TO [facility] - Billing Disposition and Condition Condition: STABLE Disposition: Admitted to [facility]
--- OUTSIDE RECORDS SUMMARY | 2018-06-13 06:05 | XMS REPORT | Continuity of Care Document ---
:1945 External Reference #:[id number] Author Name Debbie Bowen Care Team Providers Name Role Phone Harish Cabrera D.O. Primary Care Physician Unavailable Payers Date Identification Numbers Payment Provider Subscriber Expires: 2017 Policy Number: [id number] [facility] [employer] Edshira F Parlett PayID: [id number] [address] [address] [place] [address] Effective: 2017 Policy Number: [id number] Medicare Edshira F Parlett PayID: [id number] [address] [place] [address] Effective: 2017 Policy Number: [facility] Edshira F Parlett [id number] PayID: [id number] [address] [place] [address] Advance Directives Description No Information Available Problems Active Problems Provider Date Crohn's disease Mookie Feng MD Onset: 10/16/2012 Note: initial colonoscopy 04/15/[address] Bergeron had impression of C Diff; Dr Cabrera note Feb 2015 listed Apriso and then SHOTBLASTER f/u note Nov 2015 listed allergy to Azathioprine and balsalazide - rashes; stopped Remicaid due to cost later said reaction; Humira has been given Chronic obstructive lung disease Mookie Feng MD Onset: 10/17/2011 Paroxysmal atrial fibrillation Mookie Feng MD Onset: 10/16/2012 Note: had "extra heart beat in late 80s" - on warfarin until August 2017 bleeding admission and then briefly Oct 2017 and bled again; as of 06/08/18 had never had a clot Anemia Mookie Feng MD Onset: 10/16/2014 Note: started MVI with low dose Fe BID 09/04/17 with MCV rising from 67 to 82 Hypersomnia with sleep apnea Mookie Feng MD Onset: 10/16/2014 Note: had CPAP removed from house at one point; Family History Date Family Member(s) Observation Comments Father Stroke Age 62 Social History Type Date Description Comments Sex Unknown Tobacco Use Start: Unknown Heavy tobacco smoker (more than 1 pack x 50 years 10 cigarettes/day) Smoking Status Reviewed: 06/08/18 Heavy tobacco smoker (more than 1 pack x 50 years 10 cigarettes/day) ETOH Use Denies alcohol use Tobacco Use Start: Unknown Patient is a current smoker, smokes every day Allergies, Adverse Reactions, Alerts Description No Known Drug Allergies Medications Active Medications SIG Qnty Indications Ordering Provider Date Digoxin 1 tablet by mouth Mookie Feng, 10/16/2017 0.125mg Tablet daily Metformin HCL 1 by mouth twice a Unknown 05/31/2013 1000mg day with meals Tablets Lisinopril 1 by mouth every Unknown 04/02/2011 10mg Tablets day Balsalazide Disodium Take 3 Capsules By Unknown Mouth Two Times A 750mg Capsules Day Vitamin D 1 by mouth every Unknown (Cholecalciferol) day 2000Units Tablets Calcium 600 2 tablets orally Unknown 600mg daily Tablets Prednisone 2 tablets orally Unknown 10mg daily [place]-3 CF 1 by mouth once a Unknown 1000mg day Capsules Diltiazem HCL ER 1 by mouth every Unknown 180mg day Caps ER 24HR Pulmicort Flexhaler Giuliana Loyola PA 180mcg/Act Aerosol Anoro Ellipta Giuliana Loyola PA 62.5-25mcg/Inh Aerosol Furosemide 1 by mouth every Unknown 20mg Tablets day Simvastatin take 1 tablet by Unknown 40mg mouth at bedtime Tablets Aspirin 81 Low Dose 1 by mouth every Unknown day 81mg Chewtabs History Medications Humira Pen inject 40mg 6units Mookie Jackson 01/02/2018 - 40mg/0.8ML subcutaneously every MD Jung 01/03/2018 PNKT other week Prednisone 1 tab by mouth once a 120tabs Mookie Jackson 12/13/2017 - 10mg day MD Jung 03/16/2018 Tablets Multivitamin Women 1 by mouth twice a 30tabs Mookie Jackson 10/16/2017 - day MD Jung 03/19/2018 Tablets Mesalamine-Cleanser Mookie Jackson 10/16/2017 - MD Jung 03/19/2018 4gm Kit Balsalazide Disodium 3 tablets two times a 180caps Mookie Jackson 10/16/2017 - day MD Jung 03/19/2018 750mg Capsules Claritin 1 by mouth every day Unknown - 10mg 03/19/2018 Capsules Pulmicort Clement Loyola, - TIMBO Giordano 10/15/2017 180mcg/Act Aerosol Ipratropium 1 unit every 6 hours Unknown - [place]/Albuterol as needed 03/10/2018 Sulfate 0.5-2.5(3)mg/3ML Solution Immunizations Description No Information Available Vital Signs Date Vital Result Comment 06/08/2018 11:09am Height 75 inches 6'3" Weight 240.00 lb Heart Rate 96 /min BP Systolic Sitting 149 mmHg BP Diastolic Sitting 91 mmHg Respiratory Rate 16 /min Body Temperature 97.9 F tympanic O2 % BldC Oximetry 96 % on Ra BMI (Body Mass Index) 30.0 kg/m2 05/31/2018 10:20am Height 75 inches 6'3" Weight 244.00 lb with clothes and shoes Heart Rate 110 /min BP Systolic Sitting 140 mmHg left arm, sitting, large cuff BP Diastolic Sitting 72 mmHg left arm, sitting, large cuff BP Systolic Standing 142 mmHg left arm, standing, large cuff BP Diastolic Standing 70 mmHg left arm, standing, large cuff Respiratory Rate 20 /min 3 L at hs O2 % BldC Oximetry 96 % BMI (Body Mass Index) 30.5 kg/m2 Ejection Fraction 55% 09/06/17 03/22/2018 10:35am Height 75 inches 6'3" Weight 255.00 lb with clothes and shoes Heart Rate 89 /min BP Systolic Sitting 150 mmHg right arm, large cuff, sitting BP Diastolic Sitting 82 mmHg right arm, large cuff, sitting BP Systolic Standing 158 mmHg right arm, large cuff, standing BP Diastolic Standing 80 mmHg right arm, large cuff, standing BP Systolic Lying Down 138 mmHg left arm, large cuff, sitting BP Diastolic Lying Down 82 mmHg left arm, large cuff, sitting Respiratory Rate 18 /min O2 % BldC Oximetry 88 % 2 L NC applied david after 20 mins 95% BMI (Body Mass Index) 31.9 kg/m2 01/25/2018 9:24am Height 75 inches 6'3" Weight 246.38 lb Heart Rate 82 /min BP Systolic Sitting 150 mmHg BP Diastolic Sitting 82 mmHg Respiratory Rate 22 /min BMI (Body Mass Index) 30.8 kg/m2 01/01/2018 2:33pm Height 75 inches 6'3" Weight 239.50 lb Heart Rate 90 /min BP Systolic 147 mmHg BP Diastolic 86 mmHg Respiratory Rate 22 /min Pain Level 0 O2 % BldC Oximetry 94 % BMI (Body Mass Index) 29.9 kg/m2 12/13/2017 1:03pm Height 75 inches 6'3" Weight 240.12 lb Heart Rate 100 /min BP Systolic 121 mmHg BP Diastolic 85 mmHg Respiratory Rate 22 /min Body Temperature 97.0 F Pain Level 7 lower back and legs O2 % BldC Oximetry 98 % BMI (Body Mass Index) 30.0 kg/m2 11/06/2017 2:25pm Height 75 inches 6'3" Weight 275.25 lb Heart Rate 82 /min BP Systolic 117 mmHg BP Diastolic 78 mmHg Respiratory Rate 22 /min Body Temperature 97.3 F Pain Level 0 O2 % BldC Oximetry 96 % BMI (Body Mass Index) 34.4 kg/m2 10/16/2017 1:04pm Height 75 inches 6'3" Weight 270.00 lb Heart Rate 80 /min irregular BP Systolic 130 mmHg BP Diastolic 86 mmHg Respiratory Rate 24 /min Pain Level 0 BMI (Body Mass Index) 33.7 kg/m2 Results Test Date Facility Test Result H/L Range Note CBC Auto Diff 01/22/2018 [facility] White Blood 11.1 10^3/uL High 3.5-10.[address] [place] [address] [phone] Red Blood Count 4.88 10^6/uL N 4.00-5.40 Hemoglobin 13.5 g/dL Low 14.0-18.0 Hematocrit 42 % N 42-52 Mean Corpuscular Volume 85 fL N 80-94 Mean Corpuscular Hemoglobin 28 pg N 27-31 Mean Corpuscular HGB Conc 33 g/dL N 31-36 Red Cell Distribution Width 21 % High 10.5-15 Platelet Count 279 10^3/uL N 150-450 Mean Platelet Volume 7.3 fL Low 7.4-10.4 Abs Neutrophils 9.2 10^3/uL High 1.5-7.7 Abs Lymphocytes 1.1 10^3/uL N 1.0-4.8 Abs Monocytes 0.8 10^3/uL N 0-0.8 Abs Eosinophils 0.1 10^3/uL N 0-0.6 Abs Basophils 0 10^3/uL N 0-0.2 Abs Nucleated RBC 0 10^3/uL Granulocyte % 82.3 % Lymphocyte % 9.9 % Monocyte % 7.0 % Eosinophil % 0.5 % Basophil % 0.3 % Nucleated Red Blood Cells % 0 Comp Metabolic Panel 01/22/2018 [facility] Sodium 141 mmol/L N 135-[address] [place] [address] [phone] Potassium 3.9 mmol/L N 3.5-5.0 Chloride 102 mmol/L N 101-111 Co2 Carbon Dioxide 34 mmol/L High 22-32 Anion Gap 5 mmol/L N 2-11 Glucose 132 mg/dL High 70-100 Blood Urea Nitrogen 20 mg/dL N 6-24 Creatinine 0.94 mg/dL N 0.67-1.17 BUN/Creatinine Ratio 21.3 High 8-20 Calcium 9.2 mg/dL N 8.6-10.3 Total Protein 6.3 g/dL Low 6.4-8.9 Albumin 3.7 g/dL N 3.2-5.2 Globulin 2.6 g/dL N 2-4 Albumin/Globulin Ratio 1.4 N 1-3 Total Bilirubin 0.50 mg/dL N 0.2-1.0 Alkaline Phosphatase 97 U/L N 34-104 Alt 21 U/L N 7-52 Ast 14 U/L N 13-39 Egfr Non- 78.9 >60 Egfr 95.5 >60 1 Laboratory test 01/22/2018 [facility] C Reactive 6.53 mg/L N < 8.[address] [place] [address] [phone] CBC Auto Diff 11/02/2017 [facility] White Blood 11.9 High 3.5- 10.8 Count 10^3/[place] [address] [phone] Red Blood Count 4.42 10^6/uL N 4.00-5.40 Hemoglobin 12.0 g/dL Low 14.0-18.0 Hematocrit 37 % Low 42-52 Mean Corpuscular Volume 84 fL N 80-94 Mean Corpuscular Hemoglobin 27 pg N 27-31 Mean Corpuscular HGB Conc 32 g/dL N 31-36 Red Cell Distribution Width 20 % High 10.5-15 Platelet Count 358 10^3/uL N 150-450 Mean Platelet Volume 7.7 um3 N 7.4-10.4 Abs Neutrophils 9.2 10^3/uL High 1.5-7.7 Abs Lymphocytes 1.1 10^3/uL N 1.0-4.8 Abs Monocytes 1.2 10^3/uL High 0-0.8 Abs Eosinophils 0.3 10^3/uL N 0-0.6 Abs Basophils 0.1 10^3/uL N 0-0.2 Abs Nucleated RBC 0 10^3/uL Granulocyte % 77.6 % N 38-83 Lymphocyte % 9.6 % Low 25-47 Monocyte % 9.8 % High 0-7 Eosinophil % 2.5 % N 0-6 Basophil % 0.5 % N 0-2 Nucleated Red Blood Cells % 0.3 Iron & Iron Binding 11/02/2017 [facility] Iron 70 g/dL N 50- [address] [place] [address] [phone] Unsaturated Iron Binding 340 g/dL Total Iron Binding Capacity 410 g/dL N 250-450 Transferrin 293 mg/dL N 203-362 % Iron Saturation 17 % N 15-55 Laboratory test 11/02/2017 [facility] C Reactive 20.30 mg/L High <8.01 finding [address] [place] [address] [phone] Ferritin 11.3 ng/mL Low 24-336 Folic Acid (Folate) > 20.00 ng/mL >3.99 Vitamin B12 197 pg/mL N 180-914 2 Laboratory test finding 10/17/2017 [facility] Ferritin <pending > [address] [place] [address] [phone] Vitamin B12 <pending> C Reactive Protein <pending> 1 Because ethnic data is not always readily available, this report includes an eGFR for both -Americans and non- Americans. The National Kidney Disease Education Program (NKDEP) does not endorse the use of the MDRD equation for patients that are not between the ages of 18 and 70, are , have extremes of body size, muscle mass, or nutritional status, or are non- or non-. According to the National Kidney Foundation, irrespective of diagnosis, the stage of the disease is based on the level of kidney function: Stage Description GFR(mL/min/1.73 m(2)) 1 Kidney damage with normal or decreased GFR 90 2 Kidney damage with mild decrease in GFR 60-89 3 Moderate decrease in GFR 30-59 4 Severe decrease in GFR 15-29 5 Kidney failure <15 (or dialysis) 2 Normal Range 180 to 914 Indeterminate Range 145 to 180 Deficient Range <145 Procedures Date Code Description Status 05/22/2018 64155 Color Flow Doppler/Interp & Reprt Completed 05/22/2018 01579 Pulse Wave/Continuous-Interp.RPT Completed 05/22/2018 54724 Echocardiography, Transesophageal, Real Time W/Image 2D Completed W/W/O M-M 03/22/2018 72849 EKG, Interpretation Only Completed 09/01/2017 35275 ECHO Transthorasic Realtime 2D W Doppler & Color Flow Completed Hosp 03/26/2015 44628 ECHO Transthorasic Realtime 2D W Doppler & Color Flow Completed Hosp 03/04/2015 [id number] Colonoscopy Completed 02/16/2015 02522 ECHO Transthorasic Realtime 2D W Doppler & Color Flow Completed Hosp 04/16/2013 16513337 Colonoscopy Completed Encounters Type Date Location Provider Dx Diagnosis Office Visit 05/31/2018 [facility] Greg[facility] I48.2 Chronic atrial 10:45a Cardiology George Choi fibrillation Office Visit 03/22/2018 [facility] Gregorio I10 Essential (primary) 11:30a Kimberlee Choi M.D. hypertension I48.2 Chronic atrial fibrillation I45.10 Unspecified right bundle-branch block F17.210 Nicotine dependence, cigarettes, uncomplicated Office 01/25/2018 [facility] Gastroenterology Mookie Jackson K50.911 Crohn's disease, Visit 9:15a MD Jung unspecified, with rectal bleeding J44.9 Chronic obstructive pulmonary disease, unspecified Z79.899 Other fdc (current) drug therapy T38.0x5D Adverse effect of glucocort/synth analog, subs Office 01/01/2018 [facility] Gastroenterology Mookie Jackson K50.911 Crohn's disease, Visit 2:45p MD Jung unspecified, with rectal bleeding Z79.899 Other fdc (current) drug therapy I10 Essential (primary) hypertension G47.33 Obstructive sleep apnea (adult) (pediatric) J44.9 Chronic obstructive pulmonary disease, unspecified Z72.0 Tobacco use Office 12/13/2017 [facility] Gastroenterology Mookie Jackson K50.911 Crohn's disease, Visit 1:00p MD Jung unspecified, with rectal bleeding I10 Essential (primary) hypertension G47.33 Obstructive sleep apnea (adult) (pediatric) Z79.899 Other terminal gauger supervisor (current) drug therapy J44.9 Chronic obstructive pulmonary disease, unspecified Office Visit 12/01/2017 [facility] K50.911 Crohn's disease, 11:29a Assoc,yaw Costa M.D. unspecified, with Hospitalists rectal bleeding K92.2 Gastrointestinal hemorrhage, unspecified I10 Essential (primary) hypertension E78.5 Hyperlipidemia, unspecified G47.33 Obstructive sleep apnea (adult) (pediatric) J44.9 Chronic obstructive pulmonary disease, unspecified I48.91 Unspecified atrial fibrillation I25.10 Athscl heart disease of [place] coronary artery w/o ang pctrs E11.9 Type 2 diabetes mellitus without complications Office 11/29/2017 [facility] K92.2 Gastrointestinal Visit 11:28a Assoc,TIMBO Fernandez hemorrhage, Hospitalists unspecified Z83.79 Family history of other diseases of the digestive system E11.9 Type 2 diabetes mellitus without complications I25.10 Athscl heart disease of [place] coronary artery w/o ang pctrs I10 Essential (primary) hypertension E78.5 Hyperlipidemia, unspecified I48.91 Unspecified atrial fibrillation G47.33 Obstructive sleep apnea (adult) (pediatric) Office 11/06/2017 [facility] Gastroenterology Mookie DenisJamila K50.911 Crohn's disease, Visit 2:30p MD Jung unspecified, with rectal bleeding Z79.899 Other terminal gauger supervisor (current) drug therapy J44.9 Chronic obstructive pulmonary disease, unspecified E11.9 Type 2 diabetes mellitus without complications I48.0 Paroxysmal atrial fibrillation D50.9 Iron deficiency anemia, unspecified D51.9 Vitamin B12 deficiency anemia, unspecified Office 10/16/2017 [facility] Gastroenterology Mookie DenisJamila K50.911 Crohn's disease, Visit 1:00p MD Jung unspecified, with rectal bleeding K92.2 Gastrointestinal hemorrhage, unspecified J44.9 Chronic obstructive pulmonary disease, unspecified D64.9 Anemia, unspecified T88.7xxA Unsp adverse effect of drug or medicament, init encntr Office Visit 09/02/2017 4:05p [facility] Assstephanie,yaw Hernandez MD K92.1 [place] Hospitalists K50.911 Crohn's disease, unspecified, with rectal bleeding Office Visit 09/01/2017 [facility] K92.2 Gastrointestinal 4:04p Assocyaw M.D. hemorrhage, Hospitalists unspecified J44.9 Chronic obstructive pulmonary disease, unspecified I50.31 Acute diastolic (congestive) heart failure E11.9 Type 2 diabetes mellitus without complications [facility] [facility] G[facility] 4:03p Assocyaw M.D. hemorrhage, Hospitalists unspecified R57.1 Hypovolemic shock D64.9 Anemia, unspecified I50.31 Acute diastolic (congestive) heart failure E11.9 Type 2 diabetes mellitus without complications I48.91 Unspecified atrial fibrillation Office 08/30/2017 [facility] Carter Forte K92.2 Gastrointestinal Visit 4:02p Assocyaw II, M.D. hemorrhage, Hospitalists unspecified I95.9 Hypotension, unspecified J44.1 Chronic obstructive pulmonary disease w (acute) exacerbation E11.9 Type 2 diabetes mellitus without complications I25.10 Athscl heart disease of [place] coronary artery w/o ang pctrs I48.91 Unspecified atrial fibrillation Office Visit 02/16/2015 8:18a [facility] Jay Will, R55 Syncope and Assoc,pc MD collapse Hospitalists E11.9 Type 2 diabetes mellitus without complications E83.42 Hypomagnesemia I48.0 Paroxysmal atrial fibrillation Office Visit 02/15/2015 8[facility] R[facility] Syncope and Assocyaw II, M.D. collapse Hospitalists E11.9 Type 2 diabetes mellitus without complications E83.42 Hypomagnesemia I48.0 Paroxysmal atrial fibrillation Office Visit 02/[facility] K[facility].9 Noninfective 11:00a yaw Hyman M.D. gastroenteritis and Hospitalists colitis, unspecified E11.9 Type 2 diabetes mellitus without complications Office Visit 02/06/2015 [facility] Milind Peres K52.9 Noninfective 10:59a yaw Hyman M.D. gastroenteritis and Hospitalists colitis, unspecified I48.91 Unspecified atrial fibrillation E11.9 Type 2 diabetes mellitus without complications Plan of Treatment Future Appointment(s):08/09/2018 11:00 am - Mookie Feng MD at [facility] Vlijkczkriryjefc57/19/2019 - Mookie Feng MDK50.911 Crohn's disease, unspecified, with rectal bleedingFollow up:2 ylmufuN02.2 Chronic atrial fibrillationFollow up:2 dyhersK88.210 Nicotine dependence, cigarettes, uncomplicatedFollow up:2 wvhoxgB45.899 Other fdc (current) drug therapyFollow up:2 txxwohD34.3 Benign neoplasm of transverse colonFollow up:2 jxkixuD90.9 Iron deficiency anemia, unspecifiedFollow up:2 months
[2018-06-13 06:19] LABS: Hematocrit 35 % (36-46); Hemoglobin 11.6 g/dL (14.0-18.0); Mean Corpuscular HGB Conc 33 g/dL (31-36); Mean Corpuscular Hemoglobin 30 pg (27-31); Mean Corpuscular Volume 90 fL (80-94); Platelet Count 336 10^3/uL (150-450); Red Blood Count 3.86 10^6 /uL (4.18-5.48); Red Cell Distribution Width 15 % (10.5-15); White Blood Count 14.5 10^3/uL (3.5-10.8)
[2018-06-13 06:23] LABS: INR 1.19 (0.82-1.09)
[2018-06-13 06:38] LABS: Albumin 3.3 g/dL (3.2-5.2); BUN/Creatinine Ratio 17.9 (8-20); Calcium 8.9 mg/dL (8.6-10.3); EGFR African American 94.3 (>60); EGFR Non-African American 77.9 (>60); Globulin 3.2 g/dL (2-4); Magnesium 1.5 mg/dL (1.9-2.7); Potassium 3.4 mmol/L (3.5-5.0); Total Bilirubin 0.5 mg/dL (0.2-1.0); Total Protein 6.5 g/dL (6.4-8.9)
[2018-06-13 06:41] LABS: Troponin I 0.03 ng/mL (<0.04)
[2018-06-13] MEDS ORDERED: Pantoprazole* 80 mg IN NS 80 MG/250 ML BAG IVPB ONE (06:42)
[2018-06-13] MEDS ORDERED: Pantoprazole IV* 40 MG IV ONE (06:42)
[2018-06-13 07:17] LABS: ABS Basophils 0 10^3/ul (0-0.2); ABS Eosinophils 0 10^3/ul (0-0.6); ABS Neutrophils 12.9 10^3/ul (1.5-7.7); Immature Granulocytes 1 % (0-9); Lymphocytes % 7 %; Monocytes % 5 %; Neutrophil % 87 %
[2018-06-13] MEDS ORDERED: Acetaminophen TAB* 325 MG PO PRN (08:10)
[2018-06-13] MEDS ORDERED: Morphine INJ* 2 MG/ML 1 ML SYRINGE (TWO MG - NEW SYRINGE VERSION) IV PRN (08:10)
[2018-06-13] MEDS ORDERED: NS 0.9% 1000 ML** 1,000 ML IV SCH (08:15)
[2018-06-13] MEDS ORDERED: Albuterol/Ipratropium NEB.SOL* Albuterol 2.5 MG/Ipratropium 0.5 MG 3 ML INH PRN (08:19)
[2018-06-13] MEDS ORDERED: Albuterol HFA INHALER* 8 gm MDI INH PRN (08:19)
[2018-06-13] MEDS ORDERED: Magnesium Sulfate IV* 3 GM in NS 0.9% 100 ML* 100 ML IVPB ONE (08:23)
[2018-06-13] MEDS ORDERED: Dextrose 50% Syringe 50 ML* 25 GM/50 ML SYRINGE IV PUSH PRN (08:34)
[2018-06-13] MEDS ORDERED: Pantoprazole* 80 mg IN NS 80 MG/250 ML BAG IVPB SCH (09:00)
[2018-06-13 10:36] LABS: Hematocrit 32 % (36-46); Hemoglobin 10.5 g/dL (14.0-18.0)
[2018-06-13 10:37] LABS: ABS Basophils 0.2 10^3/ul (0-0.2); ABS Eosinophils 0 10^3/ul (0-0.6); ABS Lymphocytes 0.6 10^3/ul (1.0-4.8); ABS Monocytes 0.8 10^3/ul (0-0.8); ABS Neutrophils 18.3 10^3/ul (1.5-7.7); ABS Nucleated RBC 0 10^3/ul; Eosinophil % 0.1 %; Hematocrit 32 % (36-46); Hemoglobin 10.7 g/dL (14.0-18.0); Lymphocyte % 2.9 %; Mean Corpuscular HGB Conc 33 g/dL (31-36); Mean Corpuscular Hemoglobin 30 pg (27-31); Mean Corpuscular Volume 91 fL (80-94); Mean Platelet Volume 6.9 fL (7.4-10.4); Nucleated Red Blood Cells % 0; Platelet Count 317 10^3/uL (150-450); Red Blood Count 3.51 10^6 /uL (4.18-5.48); Red Cell Distribution Width 15 % (10.5-15); White Blood Count 19.8 10^3/uL (3.5-10.8)
[2018-06-13] MEDS: Digoxin TAB* 0.125 MG PO SCH (11:13)
[2018-06-13] MEDS: Diltiazem CD CAP* 180 MG PO SCH (11:13)
[2018-06-13] MEDS: KCL 10 MEQ/50 ML IVPREMIX* 10 MEQ/50 ML BAG IV SCH ×2 (11:25→13:13)
[2018-06-13] MEDS: methylPREDNISolone SOD 40 MG* 1 ML VIAL IV SCH (11:25)
[2018-06-13] MEDS ORDERED: Insulin LISPRO* 1 UNITS UNIT SUBCUT SCH (12:00)
--- NOTE | 2018-06-13 12:00 | HP ---
CC: Dr. Feng; Dr. Cabrera* HISTORY AND PHYSICAL: DATE OF ADMISSION: 06/13/18 PRIMARY CARE PROVIDER: Dr. Cabrera. VINYL DIPPER: Dr. Feng. CHIEF COMPLAINT: Bloody diarrhea. HISTORY OF PRESENT ILLNESS: Mr. Jonathan Mayberry is a 72-year-old male with a history of Crohn's who had episodes of recurrent GI bleed for which he was hospitalized at our facility in the second half of 2017, once in August and once in November. The patient also has history of atrial fibrillation for which he was on Coumadin, which was discontinued in November 2017. The patient stated he has not had any GI bleeding since November 2017 until yesterday morning when he had a small amount of bright red blood when he had a bowel movement. He had a decent food intake throughout the day and he had no abdominal pain. In the evening, he once again had some bright red blood per rectum that was noted and subsequently at 3 a.m. in the morning today, he developed maroon stools 4 times. He presented to the ED. His blood pressures were in the 60s and he complained of dizziness. While evaluating the patient, he once again had maroon bloody bowel movement. His pressures are in the 100 teens at this point. He is going to be admitted to the intensive care unit with a diagnosis of another GI bleed likely due to Crohn's. PAST MEDICAL HISTORY: 1. History of chronic hypoxemic respiratory failure, on oxygen at night only. 2. History of COPD. The patient is a current smoker. 3. History of chronic atrial fibrillation. Anticoagulation was stopped in November 2017. 4. History of hypertension. 5. Hyperlipidemia. 6. Coronary artery disease. 7. Diabetes type 2. 8. Status post bilateral cataract extraction and tonsillectomy in the past. ALLERGIES: No known drug allergies. FAMILY HISTORY: Positive for heart disease and hypertension. SOCIAL HISTORY: The patient has a history of smoking 1 pack per day and he has been doing so for the past 50 years. He denies any alcohol or drug use. He is retired and lives with his who is his surrogate and he is a full code. CURRENT MEDICATIONS: 1. Prednisone 10 mg daily. 2. [place] 3 fatty acids 1000 mg daily. 3. Multivitamin 1 tablet daily. 4. Vitamin D3 1000 units daily. 5. Calcium carbonate 600 mg daily. 6. Aspirin 81 mg daily. 7. Anoro Ellipta 62.5/25 one puff inhalation daily. 8. Simvastatin 40 mg daily. 9. Pulmicort inhaler 1 puff b.i.d. 10. DuoNebs on a p.r.n. basis. 11. Albuterol inhaler on a p.r.n. basis. 12. Metformin 1000 mg b.i.d. 13. Cardizem CD 180 mg daily. 14. Lisinopril 10 mg daily. 15. Furosemide 20 mg daily. 16. Digoxin 125 mcg q.a.m. 17. Balsalazide 2250 mg b.i.d. 18. Fosamax 70 mg weekly. REVIEW OF SYSTEMS: The patient stated that his breathing is "always pretty bad. " He stated that he feels a little bit better when he was changed from his previous inhaler which was Breo to Anoro now. He uses oxygen at night only. He has chronic cough in the morning productive of some green sputum, which has been unchanged. He still smokes a pack per day. He denies any abdominal pain. He denies any chest pain. He denies any pedal edema. All the remaining 12 systems were reviewed with the patient and were otherwise negative. PHYSICAL EXAMINATION GENERAL: The patient is a pleasant 72-year-old male, who is in no acute distress. Alert, awake, oriented x3. VITAL SIGNS: Blood pressure 90/59, heart rate of 90 and irregular, respiratory rate 21, oxygen saturation 91% on 3 L of oxygen via nasal cannula, temperature of 98.2. HEENT: Head: Atraumatic, normocephalic. Eyes: Pupils are equal and reactive to light and accommodation. Oropharynx clear. Mucosa moist. NECK: Supple. No JVD. No bruits bilaterally. RESPIRATORY: Coarse rhonchi at the bilateral lower lungs and scattered wheezes throughout. CARDIOVASCULAR: Irregularly irregular rhythm. No murmur. ABDOMEN: Protuberant, soft, nontender. Bowel sounds are present in all 4 quadrants. EXTREMITIES: There is no edema. Pulses are +2 bilaterally. No clubbing or cyanosis. NEUROLOGIC: Speech is clear. Cranial nerves II through XII are grossly intact. Motor strength is 5/5 bilaterally. SKIN: On evaluation of the skin, no ecchymotic areas or rashes noted. DIAGNOSTIC STUDIES/LAB DATA: Current laboratory data showed a white blood cell count of 14.5, hemoglobin 11.6, hematocrit 35, and platelets of 336. Sodium is 135, potassium 3.4, chloride 100, carbon dioxide 27, BUN 17, creatinine 0.95. Liver function test unremarkable. Troponin of 0.03, magnesium of 1.5. Troponin now is 1.19. The patient's portable chest x-ray is pending at the time of dictation. The patient's EKG showed patient's chronic atrial fibrillation with a heart rate of 81 beats per minute as well as right bundle-branch block. ASSESSMENT AND PLAN: 1. The patient appears to have lower gastrointestinal bleed likely due to Crohn 's again. It is interesting though that he has not bled since November when his Coumadin was off, but now he is bleeding despite not being anticoagulated, but only on aspirin. At this point, patient is going to be continued on Protonix that was recommended by the GI providers. Business Objects Analyst is going to see patient in consultation. Due to labile blood pressure and occasional hypotension as well as active gastrointestinal bleed, patient is going to be placed in the intensive care unit with hemoglobin and hematocrit checks every 6 hours. We checked the first one in 4 hours. I will support him with gentle intravenous hydration at 100 mL an hour bearing in mind that in the past patient 's history of diastolic congestive heart failure while resuscitated from his gastrointestinal bleeds. 2. The patient has a history of chronic atrial fibrillation which is rate controlled. I will continue patient's Cardizem and digoxin p.o. He is going to be placed on a diet of just sips of water. 3. In regards to patient's chronic obstructive pulmonary disease, it appears in mild exacerbation. I also suspect that due to patient's history of using oxygen at night and that he still smokes, his lungs may sound rhonchorous at baseline. At this point, portable chest x-ray is going to be obtained. The patient is on 10 mg of prednisone a day. Now due to hypotension, I am worried about discontinuation of his steroids. I also would prefer not to give him a big dose of steroids due to a possibility of worsening gastrointestinal bleed. At this point, patient is going to be placed on Solu-Medrol 20 mg IV on a daily basis. If he continues to be hypotensive, he may need to be placed on extensive steroids. 4. For his diabetes, patient is on insulin sliding scale. 5. For DVT prophylaxis, patient is being placed on SCDs, and anticoagulation is contraindicated due to gastrointestinal bleed. 6. The patient's code status is full. 7. His surrogate is his . TIME SPENT: Approximately 65 minutes was spent on the admission of this patient ; more than half that time was spent [id number] with the patient during the interview and physical exam. [id number]/[facility] #: [id number] ELODIA
[2018-06-13 13:33] LABS: Hematocrit 31 % (36-46); Hemoglobin 10.3 g/dL (14.0-18.0)
[2018-06-13] MEDS ORDERED: Iodixanol* (CONTRAST) 320 MG/ML 100 ML SDV IV ONE (14:36)
[2018-06-13] MEDS ORDERED: Furosemide IV* 10 MG/ML 2 ML VIAL (20 MG) IV ONE (16:00)
[2018-06-13] MEDS ORDERED: Piperacillin/Tazobac ADVAN(*) 3.375 GM in NS 0.9% 100 ML* 100 ML IVPB ONE (16:01)
[2018-06-13] MEDS ORDERED: Midazolam* 1 MG/ML 10 ML VIAL (10 MG) ONE (16:30)
[2018-06-13] MEDS ORDERED: fentaNYL* 50 MCG/ML 2 ML VIAL (100 MCG VIAL) ONE (16:30)
[2018-06-13] MEDS ORDERED: Zosyn per Pharmacy* NOTE FOLLOW UP SCH (17:00)
[2018-06-13 18:23] LABS: Hematocrit 31 % (36-46); Hemoglobin 10.1 g/dL (14.0-18.0)
--- NOTE | 2018-06-13 19:51 | CONS ---
GASTROENTEROLOGY CONSULT REPORT: DATE OF CONSULT: 06/13/18 CONSULTING PROVIDER: Dr. Berenice Hodge. REASON FOR CONSULT: GI bleeding, anemia, hypotension. HISTORY OF PRESENT ILLNESS: Mr. Mayberry is a 72-year-old gentleman with a history of coronary artery disease, AFib, COPD, hypertension, hyperlipidemia, sleep apnea, and Crohn's disease, who is admitted with hematochezia, hypotension , and anemia. Mr. Mayberry is followed by Dr. Mookie Feng for his Crohn's disease. I do not have the full record of his Crohn's history or recent GI clinic note, although it seems like he has failed a number of medications due to intolerance and side effects. Most recently he is on Colazal and prednisone 20 mg daily. In regards to his GI history, he was hospitalized in August 2017 with rectal bleeding and hypotension as well as anemia requiring transfusions. Tagged RBC scan demonstrated blood in hepatic flexure, and a CT showed colitis from the rectum to the hepatic flexure. A flex sig demonstrated [id number] colitis with numerous ulcerations related to his Crohn's disease. It was felt that his bleeding was related to the ulcers, particularly in the setting of Coumadin. Coumadin was discontinued after that hospitalization. I saw Mr. Mayberry in November 2017 as a GI consult for rectal bleeding without any change in hemodynamics. Blood counts were stable at that time. Recommendation was to monitor and follow up in GI clinic with Dr. Feng. In regards to the current admission, Mr. Mayberry states that he was in his usual state of health until yesterday morning when he noticed some rectal bleeding. Blood was dark red in color. He did well throughout yesterday until around midnight when he started passing more blood rectally. He had several episodes of a significant amount of rectal bleeding. The blood remained dark red. He did not see any black stool or bright red blood. He thinks there may have been some loose brown stool mixed with the blood. He reported feeling a bit lightheaded and dizzy. Ultimately, he was directed to the ER for further evaluation. On arrival to the ER, Mr. Mayberry was noted to have a drop in his hemoglobin from 13.2 on 06/08/18 to 11.6. Subsequently, his hemoglobin has drifted down a bit further to 10.3, although it has been fairly stable over the last few hours. He was noted to have hypotension while in the ER with a blood pressure down to 63/42 at 6:30 this morning. He was given a total of 3 to 4 L of fluid and his blood pressure appears to have stabilized and has been largely in the 100 to 120 systolic range. He was admitted to the ICU for monitoring. WBC was 14.5 on admission and increased to 19.8. A CT abdomen and pelvis was performed, which demonstrated consolidation in the right lung base concerning for pneumonia as well as mild mural thickening in the cecum and ascending colon concerning for potential colitis. Mild fusiform aneurysms of the infrarenal abdominal aorta and right common iliac artery were also incidentally noted. These aneurysms do not appear to have changed. GI consulted. On interview, Mr. Mayberry says that he is feeling better since he has been admitted. Denies any ongoing dizziness or lightheadedness. He has some mild abdominal tenderness earlier in the day, but this has resolved. He denies any nausea or vomiting. He has occasional GERD for which he sleeps on several pillows. He is not on any type of PPI therapy. He reports using 3 L of oxygen at night for his COPD and sleep apnea. He has a chronic mildly productive cough , which he does not think has changed significantly. He recalls feeling a little printing bindery assistant the ER, but no fevers have been documented. Last bowel movement was around 10 a.m. No further rectal bleeding since this time. PAST MEDICAL HISTORY: Significant for diabetes, coronary artery disease, AFib, COPD, Crohn's disease, hypertension, hyperlipidemia, and obstructive sleep apnea. PAST SURGICAL HISTORY: Cataracts and tonsillectomy. MEDICATIONS: Upon admission: 1. Albuterol as needed. 2. Fosamax 70 mg weekly. 3. Aspirin. 4. Colazal 2250 mg b.i.d. 5. Budesonide b.i.d. 6. Calcium carbonate. 7. Vitamin D. 8. Digoxin 0.25 mg daily. 9. Diltiazem 180 mg every morning. 10. Furosemide 20 mg daily. 11. Lisinopril 10 mg every morning. 12. Metformin 1000 mg twice a day. 13. Multivitamin daily. 14. [place]-3 fatty fish oil daily. 15. Prednisone 20 mg daily. 16. Simvastatin 40 mg daily. 17. Umeclidinium/vilanterol inhaler daily. ALLERGIES: No known drug allergies. FAMILY HISTORY: Hypertension and coronary artery disease. SOCIAL HISTORY: History of tobacco use. REVIEW OF SYSTEMS: 12 point review of systems negative except as above. PHYSICAL EXAM: Vital Signs: Temp 99, heart rate 69, blood pressure 117/60, 94% on 3 L of oxygen. General Appearance: Chronically ill-appearing gentleman, in no apparent distress. Alert and oriented, pleasant. Several family members at bedside including . HEENT: Dentition is poor. Mucous membranes are moist. Cardiovascular: Regular rate and rhythm. Pulm: Diffuse coarse breath sounds with some rhonchi in the right lung field. No wheezing. No increased work of breathing. Abdomen: Obese, soft, nontender, nondistended. Positive bowel sounds. Rectal Exam: Notable for a very scant amount of stool material. No significant bernard blood noted. Skin: No jaundice. Skin is warm and dry. DIAGNOSTIC STUDIES/LAB DATA: Labs reviewed and summarized in the HPI. White count currently 19.8, hemoglobin 10.3, hematocrit 31, MCV 91. INR 1.19. Potassium is 3.4. AST 10, ALT 14, alk phos 93. Bilirubin 0.5. Magnesium low at 1.5. Imaging: Abdominal CT reviewed in HPI. There is some possible cecal and ascending colitis. Possible right lung base pneumonia. Stable aneurysms. Chest x-ray: Hyperinflation cardiomegaly, no active cardiopulmonary disease. ASSESSMENT AND PLAN: Mr. Mayberry is a 72-year-old gentleman with a history of Crohn's disease, on prednisone and balsalazide; chronic obstructive pulmonary disease, obstructive sleep apnea, diabetes, coronary artery disease, and atrial fibrillation, no longer on anticoagulation, who is admitted with hematochezia, hypotension, and anemia. Mr. Mayberry has had multiple episodes of hematochezia (dark red blood) prior to admission and during the early part of today. He has not had any bowel movements recently. His blood pressure did drop at around 6:30 this morning to the 60s to 70s systolic, which has improved and stabilized this afternoon. Hemoglobin did also drop a bit compared to his most recent outpatient labs, although this blood count seems to have stabilized over the last few hours. Upper gastrointestinal bleed may be the explanation for both hematochezia and hypotension. The patient's risk factor for upper gastrointestinal bleed includes chronic prednisone use. CT abdomen and pelvis suggestive of possible right-sided colitis, which is likely related to his Crohn's disease. Crohn's- related colitis often does not bleed acutely. It is worth noting that the patient did have a hospitalization in the past for bleeding attributed to Crohn' s ulcers in setting of anticoagulation. He is no longer on anticoagulation. I do wonder if some of the patient's hypotension and elevated white blood cell count may be related to pneumonia as suggested by the CT scan. - recommend PPI IV for now - n.p.o., IV fluids - will plan for EGD in the ICU this afternoon to rule out brisk upper gastrointestinal bleed. - if EGD is unrevealing for a source of anemia and bleeding, then we can discuss timing of colonoscopy. Thank you very much for this consult. [id number]/[facility] #: [id number] ELODIA
--- NOTE | 2018-06-13 19:59 | PRO ---
CC: Dr. Berenice Hodge PROCEDURE REPORT: DATE OF PROCEDURE: 06/13/18 ATTENDING PHYSICIAN IN THE HOSPITAL: Dr. Berenice Hodge. PROCEDURE: EGD. INDICATIONS: The patient has a history of Crohn's disease, currently on prednisone and Colazal. Presents with rectal bleeding x1 day. Noted to have hypotension in the ER. Hemoglobin also down several grams compared to recent baseline. CT abdomen and pelvis demonstrated possible right colon colitis. CT also demonstrated a possible right lower lobe pneumonia. Blood pressure seems to have stabilized over the afternoon, and rectal bleeding seemed to have stopped. Last bowel movement was 10 a.m. Rectal exam did not demonstrate any significant stool or blood. Decision was made to proceed with an upper endoscopy to rule out brisk upper bleeding given the acute hemoglobin drop and the hypotension earlier in the ER. The patient was on 3 L of oxygen before the procedure and it was increased briefly during the procedure to 5 L of oxygen. MEDICATIONS GIVEN: 1. Midazolam 5 mg IV. 2. Fentanyl 50 mcg IV. DESCRIPTION OF PROCEDURE: Full disclosure of risks was reviewed with the patient as detailed on the consent form. The patient was placed in the left lateral decubitus position and monitored with continuous pulse oximetry, capnography, interval blood pressure monitoring, and direct observation. A bite block was placed between the patient's gums. An adult gastroscope was then inserted into the patient's mouth and advanced down the esophagus, into the stomach, and into the distal duodenum. Findings and interventions are described below. FINDINGS: Esophagus was a normal tubular structure without rings or strictures. Z- line was regular. Scope was then advanced into the stomach. Stomach was examined in the forward and retroflexed views. There was no fresh or old blood seen. Gastric mucosa was normal. No erosions or ulcers. Scope was then advanced into the duodenum to at least the third portion. No fresh or old blood noted. Duodenal mucosa was normal. Scope was then withdrawn from the patient. The patient tolerated the procedure well and was recovered in the ICU. IMPRESSION: 1. Complete upper endoscopy. 2. No fresh or old blood. No evidence of bleeding source. FOLLOWUP: 1. Can discontinue IV PPI. 2. Discuss findings with the patient's family as well as Dr. Hodge. It would seem that the patient has a lower GI bleeding source, which appears to have at least temporarily slowed or stopped. He also likely has pneumonia given the CT findings. I would recommend a colonoscopy be performed at some point to assess possible colitis seen on CT and evaluate for bleeding source. As patient is currently stable from GI bleed standpoint, I would recommend he be treated for the pneumonia with plan to proceed with colonoscopy in next 1-2 days depending on pulmonary status. Dr. Segovia will touch base with the patient and team tomorrow to reassess clinical status and help determine timing of colonoscopy. Thank you very much for this referral, Dr. Hodge. Please contact GI with any acute clinical change or concern. [id number]/[facility] #: [id number] [facility]
[2018-06-13] MEDS ORDERED: Nitro Patch/OINT Remove PATCH OFF SCH (21:00)
[2018-06-13] MEDS: Nicotine PATCH 21 MG/24 HR* PATCH TRANSDERM SCH (22:23)
[2018-06-13] MEDS: ZOSYN 3.375 GM Q8H per EXTENDED INFUSION IVPB SCH ×2 (22:24)
[2018-06-13] MEDS: Insulin LISPRO* 1 UNITS UNIT SUBCUT SCH (22:38)
[2018-06-14 00:46] LABS: Hematocrit 32 % (36-46); Hemoglobin 10.4 g/dL (14.0-18.0)
[2018-06-14] MEDS: ZOSYN 3.375 GM Q8H per EXTENDED INFUSION IVPB SCH ×6 (06:23→23:17)
[2018-06-14 06:42] LABS: ABS Basophils 0 10^3/ul (0-0.2); ABS Eosinophils 0 10^3/ul (0-0.6); ABS Lymphocytes 0.6 10^3/ul (1.0-4.8); ABS Monocytes 0.7 10^3/ul (0-0.8); ABS Neutrophils 10.9 10^3/ul (1.5-7.7); ABS Nucleated RBC 0 10^3/ul; Eosinophil % 0 %; Hematocrit 31 % (36-46); Hemoglobin 10.2 g/dL (14.0-18.0); Mean Corpuscular HGB Conc 33 g/dL (31-36); Mean Corpuscular Hemoglobin 30 pg (27-31); Mean Corpuscular Volume 91 fL (80-94); Mean Platelet Volume 6.8 fL (7.4-10.4); Nucleated Red Blood Cells % 0; Platelet Count 309 10^3/uL (150-450); Red Blood Count 3.41 10^6 /uL (4.18-5.48); Red Cell Distribution Width 15 % (10.5-15); White Blood Count 12.3 10^3/uL (3.5-10.8)
[2018-06-14 07:00] LABS: Potassium 3.9 mmol/L (3.5-5.0)
[2018-06-14 07:01] LABS: BUN/Creatinine Ratio 14.9 (8-20); Calcium 7.9 mg/dL (8.6-10.3); EGFR African American 125.8 (>60)
[2018-06-14] MEDS: Insulin LISPRO* 1 UNITS UNIT SUBCUT SCH ×4 (08:59→20:15)
[2018-06-14] MEDS: methylPREDNISolone SOD 40 MG* 1 ML VIAL IV SCH (09:01)
[2018-06-14] MEDS: Digoxin TAB* 0.125 MG PO SCH (09:06)
[2018-06-14] MEDS: Diltiazem CD CAP* 180 MG PO SCH (09:07)
--- NOTE | 2018-06-14 10:50 | PN ---
Subjective Date of Service: 06/14/18 Interval History: Pt had some maroon stool last night, nothing this AM. Coughing, but not coughing up anything Objective Active Medications: Acetaminophen (Tylenol Tab*) 650 mg PO Q4H PRN PRN Reason: FEVER/PAIN Albuterol (Ventolin Hfa Inhaler*) 2 puff INH Q4H PRN PRN Reason: WHEEZING Albuterol/Ipratropium (Duoneb (Albuterol 2.5 Mg/Ipratropium 0.5 Mg)) 1 neb INH Q6H PRN PRN Reason: SHORTNESS OF BREATH Dextrose (D50w Syringe 50 Ml*) 12.5 gm IV PUSH .FOR FS < 60 - SS PRN PRN Reason: FS < 60 Digoxin (Lanoxin Tab*) 0.125 mg PO QAM [facility] Last Admin: 06/14/18 09:06 Dose: 0.125 mg Diltiazem HCl (Cardizem Cd Cap*) 180 mg PO DAILY [facility] Last Admin: 06/14/18 09:07 Dose: 180 mg Piperacillin Sod/Tazobactam (Sod 3.375 gm/ Sodium Chloride) 100 mls @ 25 mls/ hr IVPB Q8H [facility] Last Admin: 06/14/18 06:23 Dose: 25 mls/hr Insulin Human Lispro (Humalog*) 0 units SUBCUT ACHS [facility]; Protocol Last Admin: 06/14/18 08:59 Dose: 1 units Methylprednisolone Sodium Succinate (Solu-Medrol 40 Mg) 20 mg IV DAILY [facility] Last Admin: 06/14/18 09:01 Dose: 20 mg Morphine Sulfate (Morphine Inj (Syringe))*) 1 mg IV Q4H PRN PRN Reason: PAIN - MILD Nicotine (Nicotine Patch 21 Mg/24 Hr*) 1 patch TRANSDERM DAILY [facility] Last Admin: 06/13/18 22:23 Dose: 1 patch Pharmacy Consult (Zosyn Per Pharmacy*) 1 note FOLLOW UP .ZOSYN PER PHARMACY [facility] Pharmacy Profile Note (Nicotine Patch Removal Note*) 1 note PATCH OFF BEDTIME [facility] Vital Signs - 8 hr 06/14/18 06/14/18 06/14/18 07:55 08:00 08:02 Temperature 97.5 F 97.5 F Pulse Rate 65 65 Respiratory 18 20 18 Rate Blood Pressure 149/89 148/89 (mmHg) O2 Sat by Pulse 96 Oximetry 06/14/18 09:06 Temperature Pulse Rate 65 Respiratory Rate Blood Pressure (mmHg) O2 Sat by Pulse Oximetry Oxygen Devices in Use Now: Nasal Cannula Appearance: 72 yo m in nAD, aAOx3 Eyes: No Scleral Icterus, PERRLA Ears/Nose/Mouth/Throat: NL Teeth, Lips, Gums, Mucous Membranes Moist Neck: NL Appearance and Movements; NL JVP, Trachea Midline Respiratory: Symmetrical Chest Expansion and Respiratory Effort, - - bibasiliar rhonchi noted Cardiovascular: - - irregular Lymphatic: No Cervical Adenopathy Extremities: No Edema Skin: No Rash or Ulcers, No Nodules or Sclerosis Neurological: Alert and Oriented x 3, NL Muscle Strength and Tone Result Diagrams: 06/14/18 06:17 06/14/18 06:17 Microbiology and Other Data: Microbiology 06/14/18 04:40 Gram Stain - Final Sputum Expectorated 06/14/18 01:05 Stool Gross Appearance - Final Stool C. difficile DNA Amplification - Final 027 Presumptive NEGATIVE Toxigenic C.diff NEGATIVE 06/13/18 11:23 Nasal Screen MRSA (PCR) - Final Nasal Mrsa Not Detected 06/13/18 08:55 Stool Occult Blood (JUAN) - Final Stool Assess/Plan/Problems-Billing Assessment: Mr Mayberry is a 72yo M with PMH of Crohn's disease, HTN, HLD, RICHARD ( not on CPAP), COPD, Afib not on AC , CAD, type 2 DM, recurrent GI bleed in 2018 , presents with bloody stool again - Patient Problems (1) Lower GI bleed Code(s): K92.2 - GASTROINTESTINAL HEMORRHAGE, UNSPECIFIED Comment: - Likely secondary to Crohn's colitis -Hb down from 13 to 10 at admission, but now stable (due to acute hemorrhagic anemia) - No further episodes today - continue to monitor. - GI input appreciated - plan for flex sig or colonoscopy tomorrow. EGD with no source of bleeeding done on 06/13/18 (2) Pneumonia Comment: noted incidentally on CT abd. Pt denies worsening of his chronic cough. Still smokes On at night at 2-3L at home Cont Zosyn. hypotension at admission related to GI bleed and not septic shock (3) COPD (chronic obstructive pulmonary disease) Comment: pt had been on prednisone since 02/2017. Switched to Solu Medrol at admission. will cont for now cont duonebs (4) Diabetes Comment: metformin on hold, cont ISS (5) Diastolic CHF Comment: EF at 50-55% on 05/23/18, will restart home dose of PO Lasix will cont daily weights. (6) HTN (hypertension) Comment: - Controlled (7) Tobacco abuse Comment: Pt advised to quit smoking and avoid second hand smoke. (8) DVT prophylaxis Comment: - SCD's, pharmacological prophylaxis contraindicated due to GI bleed (9) Atrial fibrillation Comment: - Continue Cardizem/Digoxin.
[2018-06-14] MEDS: Nicotine PATCH 21 MG/24 HR* PATCH TRANSDERM SCH (10:53)
[2018-06-14] MEDS: Lisinopril TAB* 10 MG PO SCH (12:11)
[2018-06-14] MEDS: Furosemide TAB* 20 MG PO SCH (12:12)
[2018-06-14 13:58] LABS: Hematocrit 32 % (36-46); Hemoglobin 10.5 g/dL (14.0-18.0)
--- NOTE | 2018-06-14 14:23 | PN ---
Progress Note - Progress Note Date of Service: 06/14/18 Note: GI Note S: had scant red blood in stool this morning x 2. No lightheaded or dizziness. States breathing better. +dyspnea REmainder of 14 point ROS negative. O: 148/89, P 65, R-18, 96% on 3L, 97.5 Gen: alert, nad.. Heent: At/nc, perrla, eomi, conjunctiva pink, sclera anicteric Neck: supple, slight buffalo hump CVS: RRR s1s2 Resp: rhonchi b/l fair effort, diminished base abd: soft, nt, nd, bs+ Ext: edema, ecchymosis Lab: Hgb 10.5, Wbc 12.3 Cr 0.74, INR 1.19 A/P 72 year male with history of Crohn's, prednisone dependence presenting with hematchezia. 1.) Acute blood loss anemia: egd without source. PLan colon 06/14/18. bleeding scan last yr + at hep flex 2.) History of crohn's with steroid dependence: will need follow up with primary gastro Dr. Feng pending findings above Sadi Segovia DO 06/14/18 [id number]
[2018-06-14] MEDS ORDERED: PEG 3000 GI LAVAGE* 1 GALLON PO ONE (16:00)
[2018-06-14] MEDS: Nicotine Patch Removal NOTE PATCH OFF SCH (20:15)
[2018-06-15 06:33] LABS: ABS Basophils 0 10^3/ul (0-0.2); ABS Eosinophils 0 10^3/ul (0-0.6); ABS Lymphocytes 0.9 10^3/ul (1.0-4.8); ABS Monocytes 0.8 10^3/ul (0-0.8); ABS Neutrophils 8.9 10^3/ul (1.5-7.7); ABS Nucleated RBC 0 10^3/ul; Eosinophil % 0.1 %; Hematocrit 32 % (36-46); Hemoglobin 10.7 g/dL (14.0-18.0); Lymphocyte % 8.8 %; Mean Corpuscular HGB Conc 33 g/dL (31-36); Mean Corpuscular Hemoglobin 30 pg (27-31); Mean Corpuscular Volume 91 fL (80-94); Mean Platelet Volume 6.9 fL (7.4-10.4); Nucleated Red Blood Cells % 0; Platelet Count 342 10^3/uL (150-450); Red Blood Count 3.53 10^6 /uL (4.18-5.48); Red Cell Distribution Width 15 % (10.5-15); White Blood Count 10.6 10^3/uL (3.5-10.8)
[2018-06-15 06:44] LABS: BUN/Creatinine Ratio 11.8 (8-20); Calcium 8.2 mg/dL (8.6-10.3); EGFR Non-African American 100.8 (>60); Potassium 3.8 mmol/L (3.5-5.0)
[2018-06-15] MEDS ORDERED: PEG 3000 GI LAVAGE* 1 GALLON PO ONE (07:00)
[2018-06-15] MEDS: ZOSYN 3.375 GM Q8H per EXTENDED INFUSION IVPB SCH ×6 (07:54→21:40)
[2018-06-15] MEDS: Insulin LISPRO* 1 UNITS UNIT SUBCUT SCH ×4 (07:58→21:43)
[2018-06-15] MEDS: Diltiazem CD CAP* 180 MG PO SCH (08:18)
[2018-06-15] MEDS: Furosemide TAB* 20 MG PO SCH (08:18)
[2018-06-15] MEDS: Lisinopril TAB* 10 MG PO SCH (08:18)
[2018-06-15] MEDS: methylPREDNISolone SOD 40 MG* 1 ML VIAL IV SCH (08:18)
[2018-06-15] MEDS: Digoxin TAB* 0.125 MG PO SCH (08:18)
[2018-06-15] MEDS: Nicotine PATCH 21 MG/24 HR* PATCH TRANSDERM SCH (08:18)
--- NOTE | 2018-06-15 09:55 | PN ---
Subjective Date of Service: 06/15/18 Interval History: Pt feels that his breathing is better. Has had bowel prep for c-scope since last night and now his BM's are blood only. Abd distended, but refuses pain Objective Active Medications: Acetaminophen (Tylenol Tab*) 650 mg PO Q4H PRN PRN Reason: FEVER/PAIN Albuterol (Ventolin Hfa Inhaler*) 2 puff INH Q4H PRN PRN Reason: WHEEZING Albuterol/Ipratropium (Duoneb (Albuterol 2.5 Mg/Ipratropium 0.5 Mg)) 1 neb INH Q6H PRN PRN Reason: SHORTNESS OF BREATH Dextrose (D50w Syringe 50 Ml*) 12.5 gm IV PUSH .FOR FS < 60 - SS PRN PRN Reason: FS < 60 Digoxin (Lanoxin Tab*) 0.125 mg PO QAM [facility] Last Admin: 06/15/18 08:18 Dose: 0.125 mg Diltiazem HCl (Cardizem Cd Cap*) 180 mg PO DAILY [facility] Last Admin: 06/15/18 08:18 Dose: 180 mg Furosemide (Lasix Tab*) 20 mg PO DAILY [facility] Last Admin: 06/15/18 08:18 Dose: 20 mg Piperacillin Sod/Tazobactam (Sod 3.375 gm/ Sodium Chloride) 100 mls @ 25 mls/ hr IVPB Q8H [facility] Last Admin: 06/15/18 07:54 Dose: 25 mls/hr Insulin Human Lispro (Humalog*) 0 units [facility]; Protocol Last Admin: 06/15/18 07:58 Dose: Not Given Lisinopril (Prinivil Tab*) 10 mg PO QAM [facility] Last Admin: 06/15/18 08:18 Dose: 10 mg Methylprednisolone Sodium Succinate (Solu-Medrol 40 Mg) 20 mg IV DAILY [facility] Last Admin: 06/15/18 08:18 Dose: 20 mg Morphine Sulfate (Morphine Inj (Syringe))*) 1 mg IV Q4H PRN PRN Reason: PAIN - MILD Nicotine (Nicotine Patch 21 Mg/24 Hr*) 1 patch TRANSDERM DAILY [facility] Last Admin: 06/15/18 08:18 Dose: 1 patch Pharmacy Consult (Zosyn Per Pharmacy*) 1 note FOLLOW UP .ZOSYN PER PHARMACY [facility] Pharmacy Profile Note (Nicotine Patch Removal Note*) 1 note PATCH OFF BEDTIME [facility] Last Admin: 06/14/18 20:15 Dose: 1 note Vital Signs - 8 hr 06/15/18 06/15/18 06/15/18 03:21 03:24 07:41 Temperature 97.4 F 97.4 F 97.3 F Pulse Rate 79 79 80 Respiratory 20 20 18 Rate Blood Pressure 144/73 144/73 125/71 (mmHg) O2 Sat by Pulse 98 98 97 Oximetry 06/15/18 08:00 Temperature Pulse Rate Respiratory 20 Rate Blood Pressure (mmHg) O2 Sat by Pulse Oximetry Oxygen Devices in Use Now: Nasal Cannula Appearance: 72 yo M in nAD, AAOx3 Eyes: No Scleral Icterus, PERRLA Ears/Nose/Mouth/Throat: NL Teeth, Lips, Gums, Mucous Membranes Moist Neck: NL Appearance and Movements; NL JVP Respiratory: Symmetrical Chest Expansion and Respiratory Effort, - - bibasiliar rhonchi L>R, no singificant wheezes today Cardiovascular: - - irregular Abdominal: - - distended . soft, NT, BS+ Lymphatic: No Cervical Adenopathy Extremities: No Edema Skin: No Nodules or Sclerosis Neurological: Alert and Oriented x 3, NL Muscle Strength and Tone Result Diagrams: 06/15/18 06:06 06/15/18 06:06 Microbiology and Other Data: Microbiology 06/14/18 04:40 Gram Stain - Final Sputum Expectorated 06/14/18 01:05 Stool Gross Appearance - Final Stool C. difficile DNA Amplification - Final 027 Presumptive NEGATIVE Toxigenic C.diff NEGATIVE 06/13/18 11:23 Nasal Screen MRSA (PCR) - Final Nasal Mrsa Not Detected 06/13/18 08:55 Stool Occult Blood (JUAN) - Final Stool Assess/Plan/Problems-Billing Assessment: Mr Mayberry is a 72yo M with PMH of Crohn's disease, HTN, HLD, RICHARD ( not on CPAP), COPD, Afib not on AC , CAD, type 2 DM, recurrent GI bleed in 2018 , presents with bloody stool again - Patient Problems (1) Lower GI bleed Comment: - possibly secondary to Crohn's colitis -Hb down from 13 to 10 at admission, but now stable (due to acute hemorrhagic anemia) - more bloody BM with prep today for colonoscopy later on today - EGD with no source of bleeeding done on 06/13/18 (2) Pneumonia Comment: noted incidentally on CT abd. Pt denies worsening of his chronic cough. Still smokes On 02 at night at 2-3L at home Cont Zosyn. hypotension at admission related to GI bleed and not septic shock (3) COPD (chronic obstructive pulmonary disease) Comment: pt had been on prednisone since 02/2017. Switched to Solu Medrol at admission. will cont for now cont duonebs (4) Diabetes Comment: metformin on hold, cont ISS (5) Diastolic CHF Comment: EF at 50-55% on 05/23/18, cont home dose of PO Lasix will cont daily weights. (6) HTN (hypertension) Comment: - Controlled (7) Tobacco abuse Comment: Pt advised to quit smoking and avoid second hand smoke. (8) DVT prophylaxis Comment: - SCD's, pharmacological prophylaxis contraindicated due to GI bleed (9) Atrial fibrillation Comment: - Continue Cardizem/Digoxin. -reate controlled Status and Disposition: inpatient
[2018-06-15] MEDS ORDERED: fentaNYL* 50 MCG/ML 2 ML VIAL (100 MCG VIAL) ONE (14:59)
[2018-06-15] MEDS ORDERED: Midazolam* 1 MG/ML 10 ML VIAL (10 MG) ONE (14:59)
--- NOTE | 2018-06-15 17:43 | PRO ---
CC: Dr. Cabrera; Dr. Mookie Feng PROCEDURE REPORT: DATE OF PROCEDURE: 06/15/18 REFERRING PHYSICIAN: Dr. Cabrera. PROCEDURE: Colonoscopy. INDICATIONS: Crohn's, hematochezia. MEDICATIONS GIVEN: 1. 50 mcg IV fentanyl. 2. 3 mg IV Versed. DESCRIPTION OF PROCEDURE: After the colonoscopy procedure, including risks, benefits, and alternatives, not limited to perforation, surgery, and/or were explained to the patient, written consent was then obtained, IV medication was given, and a rectal exam was performed. It was unremarkable. Olympus colonoscope was then inserted into the patient's rectum and advanced through the entirety of the colon and into the cecal base/proximal ascending colon. The quality of the preparation was fair to poor. There was liquid stool throughout the entirety of the colon; some of this was dark red in color consistent with blood. Throughout the entirety of the colon, he did have evidence of Crohn's colitis. He had ulcerations throughout. On the left side of the colon, they were mild. Through the transverse colon, there was cobblestoning and larger ulcers, and then there was skip area in the ascending colon and then once I got to, what appeared to be, the cecum, there appeared to be a stricture just at the entrance to the cecum. I did try and nudge the scope through this area; however, the regular adult scope, I did not feel that I could get the scope in through this area. It did appear that the cecum was right there just beyond the strictured area as I could see colonic mucosa and the strictured area did appear very ulcerated. I did not want to push through too hard. At that point, I decided to withdraw the scope. Again, there was pancolitis throughout, more so in the transverse, [id number] in the transverse, mild on the left and the right side, no active bleeding, but definitely [id number] ulcers throughout. There were also pseudopolyps. The scope was withdrawn all the way through the colon. No other abnormalities were seen. The scope was withdrawn from the patient. He tolerated the procedure well and will be returned to his hospital room in stable condition. IMPRESSION: 1. Complete colonoscopy. 2. Lopez Crohn's colitis. Numerous ulcers throughout. Please see the body of the report for severity and location. 3. 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 4. The patient needs to follow up with his primary drug room clerk, Dr. Feng. The patient tells me that he has had allergic reactions to HUMIRA and REMICADE in the past. He is steroid dependent. At this point, we are going to switch him to oral steroids tomorrow. Hopefully, he can be discharged in a day or so. He will need a new biologic such as Entyvio or Stelara in order to better control his Crohn's and likely he would benefit from a repeat colonoscopy with a pediatric colonoscope at a further date once his Crohn's has healed up in order to better evaluate the stricture in his cecum. [id number]/CPS #: [id number] ELODIA
[2018-06-15] MEDS: Nicotine Patch Removal NOTE PATCH OFF SCH (21:44)
[2018-06-16] MEDS: ZOSYN 3.375 GM Q8H per EXTENDED INFUSION IVPB SCH ×2 (05:41)
[2018-06-16 08:01] LABS: ABS Basophils 0 10^3/ul (0-0.2); ABS Eosinophils 0 10^3/ul (0-0.6); ABS Monocytes 0.7 10^3/ul (0-0.8); ABS Neutrophils 6.5 10^3/ul (1.5-7.7); ABS Nucleated RBC 0 10^3/ul; Eosinophil % 0.1 %; Hematocrit 30 % (36-46); Hemoglobin 9.8 g/dL (14.0-18.0); Lymphocyte % 11.9 %; Mean Corpuscular HGB Conc 33 g/dL (31-36); Mean Corpuscular Hemoglobin 30 pg (27-31); Mean Corpuscular Volume 92 fL (80-94); Mean Platelet Volume 6.8 fL (7.4-10.4); Nucleated Red Blood Cells % 0; Platelet Count 327 10^3/uL (150-450); Red Blood Count 3.22 10^6 /uL (4.18-5.48); Red Cell Distribution Width 15 % (10.5-15); White Blood Count 8.2 10^3/uL (3.5-10.8)
[2018-06-16 08:20] LABS: BUN/Creatinine Ratio 13.3 (8-20); Calcium 8.2 mg/dL (8.6-10.3); EGFR African American 110.2 (>60); EGFR Non-African American 91.1 (>60); Potassium 3.8 mmol/L (3.5-5.0)
[2018-06-16 08:32] VITALS: BP 102/69
[2018-06-16] MEDS: Insulin LISPRO* 1 UNITS UNIT SUBCUT SCH ×2 (09:30→12:35)
[2018-06-16] MEDS: Lisinopril TAB* 10 MG PO SCH (09:30)
[2018-06-16] MEDS: Digoxin TAB* 0.125 MG PO SCH (09:30)
[2018-06-16] MEDS: Diltiazem CD CAP* 180 MG PO SCH (09:30)
[2018-06-16] MEDS: Furosemide TAB* 20 MG PO SCH (09:30)
[2018-06-16] MEDS: Nicotine PATCH 21 MG/24 HR* PATCH TRANSDERM SCH (09:31)
[2018-06-16] MEDS: methylPREDNISolone SOD 40 MG* 1 ML VIAL IV SCH (09:32)
--- NOTE | 2018-06-16 13:23 | PN ---
Progress Note - Progress Note Date of Service: 06/16/18 Note: pt doing well, eating lunch, reg diet; no pain, +bm today, nonbloody, pieces of solid stool 97.9, 102/69 nad, alert +bs, soft, Nt/nd LaBS: hgb 9.8 moderate moseley Crohns colitis; allergy to Humira/Remicade (per pt); has failed mesalamines; will need new biologic.....i discussed Entyvio vs Stelara with pt needs fu with his primary GI, Jung; pt will call for appt early this week; plan to dc on 40mg pred Aayush Polanco MD [facility], [phone]
--- NOTE | 2018-06-16 15:16 | DS ---
CC: Dr. Cabrera; Dr. Feng; Dr. Polanco; Dr. Cannon; Dr. Segovia; Dr. Choi * DISCHARGE SUMMARY: DATE OF ADMISSION: 06/13/18 DATE OF DISCHARGE: 06/16/18 PRIMARY CARE PROVIDER: Dr. Cabrera. PRINT PRODUCTION MANAGER: Dr. Feng. CONDITION ON DISCHARGE: Stable. Patient is being discharged home. DISCHARGE DIAGNOSES: 1. Lower gastrointestinal bleed due to Crohn's exacerbation. 2 Acute hemorrhagic anemia due to above. 3. Community-acquired pneumonia. SECONDARY DIAGNOSES: 1. History of chronic hypoxemia with respiratory failure, on oxygen at night only. 2. History of chronic obstructive pulmonary disease. 3. History of chronic atrial fibrillation, anticoagulation was stopped in November 2017 due to recurrent GI bleed due to Crohn's exacerbation. 4. History of hypertension. 5. Hyperlipidemia. 6. Coronary artery disease. 7. Diabetes type 2. 8. Bilateral cataract extraction and tonsillectomy in the past. MEDICATIONS AT DISCHARGE: Include: 1. Albuterol inhaler on a p.r.n. basis. 2. DuoNeb nebulizers on a p.r.n. basis. 3. Fosamax 70 mg weekly. 4. Budesonide inhaler 180 mcg 1 puff inhalation b.i.d. 5. Calcium carbonate 600 mg daily. 6. Vitamin D3 at 2000 units daily. 7. Digoxin 125 mcg a day. 8. Diltiazem ER 180 mg daily. 9. Furosemide 20 mg daily. 10. Lisinopril 10 mg daily. 11. Metformin 1000 mg b.i.d. 12. Multivitamin with lutein 1 tablet daily. 13. [place]-3 fatty acids 1000 mg daily. 14. Zocor 40 mg daily. 15. Anoro Ellipta 1 inhalation daily. 16. Augmentin 875 mg for a total of 7 days and then stop. 17. Nicotine patch 21 mg daily, apply and remove daily. 18. Prednisone 40 mg daily. LABORATORY DATA AND STUDIES PERFORMED DURING THE HOSPITAL STAY: On 06/16/18, white blood cell count of 8.2, hemoglobin of 9.8, hematocrit of 30, and platelets of 327. Sodium was 138, potassium was 3.8, chloride 103, carbon dioxide 29, BUN 11, creatinine 0.83. Sputum cultures were unable to be obtained. The patient did not produce enough sputum. Stool for occult blood was positive. Stool for C. diff was negative. Urine legionella antigen and urine Strep pneumo antigen were negative. Abdomen and pelvis CT obtained on 06/13/18. Impression: Consolidation of the right lung base concerning for pneumonia. Mild to moderate thickening of the cecum and ascending colon concerning for potential colitis. No colonic mass or lesion identified. 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 The patient's chest x-ray obtained admission, cardiomegaly with hyperinflation and no active cardiopulmonary disease. CONSULTATIONS DURING THE HOSPITAL STAY: Included Dr. Cannon and Dr. Segovia as well as Dr. Polanco. PROCEDURES PERFORMED DURING THE HOSPITAL STAY: Upper endoscopy obtained on by Dr. Cannon, which showed impression: "Complete upper endoscopy. No fresh or old blood. No evidence of bleeding source." The patient had another procedure on 06/15/18, which was a colonoscopy performed by Dr. Polanco, which showed numerous ulcers throughout and likely cecal stricture. HOSPITALIZATION COURSE: Jonathan Mayberry is a 72-year-old male with a history of chronic atrial fibrillation for which anticoagulation was stopped in November of last year after recurrent GI bleed due to Crohn's exacerbation. Patient has history of significant COPD, but oxygen dependent at night only. He presented to the hospital with maroon stools. He had significant amount of hematochezia and later on developed bernard bloody stools. He was checked with upper endoscopy by Dr. Cannon on 06/13/18, which was negative. At admission, patient was also noted to have incidentally found pneumonia. The patient appeared fairly dyspneic on evaluation, but he had no respiratory complaints and he stated that he "bleeds as usual." At this point, patient was placed on empiric Zosyn for pneumonia treatment. His further infectious workup was grossly unremarkable. Patient is steroid dependent and he used to be on prednisone at 10 mg and during his hospital stay, he was placed on Solu-Medrol at 20 mg intravenously. His hemoglobin and hematocrit levels had been checked throughout the hospital stay and his hemoglobin remained relatively stable and dropped somewhat only after colonoscopy prep prior to his colonoscopy on , during which time patient developed again bloody diarrhea. The colonoscopy showed likely cecal stricture and multiple severe colon ulcers, likely due to Crohn's. As per discussion with Dr. Polanco, patient has a history of intolerance to Remicade and Humira in the past. He currently is failing treatment with balsalazide. The recommendation was to continue him on p.o. steroids at discharge on prednisone at 40 mg daily and to see Dr. Feng in approximately 1 to 2 weeks to set up further treatment with a new biologic agent ; Entyvio or Stelara were recommended. The patient's pneumonia was discovered incidentally on the CT of the abdomen, although patient did have leukocytosis on admission. He did very well with treatment with Zosyn. His urine antigen for legionella and streptococcus were negative. It is difficult to discern if patient's tachycardia, hypotension, and leukocytosis were at any point related to pneumonia. I suspect that they are related to inflammatory response from acute GI bleed. I do not believe patient was septic at admission. With treatment with steroids and antibiotics, he did very well respiratory calderon and by the time of discharge, he had no further cough and he used oxygen at night only. In regard to his GI bleeding, he did have some scant hematochezia with bowel movement on the day of discharge for which he was educated that it may still happen intermittently and to come back to the hospital if he develops bernard bloody diarrhea again. The patient is recommended to follow up with Dr. Feng in approximately 1 to 2 weeks and his primary care provider in approximately 4 to 7 days. PHYSICAL EXAMINATION AT THE TIME OF DISCHARGE: Blood pressure 102/69, heart rate of 73 and irregular, respiratory rate of 16, oxygen saturation 98% on room air, temperature 97.9. General: The patient is a pleasant 72-year-old male who is in no acute distress. Alert, awake, and oriented x3. HEENT: Head: Atraumatic and normocephalic. Eyes: Pupils are equal and reactive to light and accommodation. Oral mucosa moist. Neck: Supple. No JVD, no bruits bilaterally. Cardiovascular: Irregularly irregular rhythm. No murmurs. Respiratory: Coarse rhonchi at bilateral bases, otherwise clear. No wheezes. Abdomen: Soft and nontender. Bowel sounds are present in all 4 quadrants. Extremities: There is no edema. Pulses +2 bilaterally. No clubbing or cyanosis. On neuro evaluation, speech clear. Cranial nerves II through XII are grossly intact. Motor strength is 5/5 bilaterally. Please note that this is a short summary of the patient's hospitalization. Please refer to further medical records for details. TIME SPENT: Approximately 40 minutes was spent in preparation of the patient's discharge. [id number]/CPS #: [id number] MTDD
== END 2018-06-16 13:30 | disposition home or self-care (01) | DRG 385 ==
LOC: ED 05:30 → ICU 08:10 → MED 21:29
PROVIDERS: ADMIT Internal Medicine; ATTEND Internal Medicine
PROC: 0DJ08ZZ Inspection of Upper Intestinal Tract, Via Natural or Artificial Opening Endoscopic (ICD-10-PCS; principal; 2018-06-13)
PROC: 0DJD8ZZ Inspection of Lower Intestinal Tract, Via Natural or Artificial Opening Endoscopic (ICD-10-PCS; 2018-06-15)
DX: K51.911 Ulcerative colitis, unspecified with rectal bleeding (principal); J18.9 Pneumonia, unspecified organism; K92.1 Melena; D62 Acute posthemorrhagic anemia; J96.11 Chronic respiratory failure with hypoxia; I50.30 Unspecified diastolic (congestive) heart failure; K56.699 Other intestinal obstruction unspecified as to partial versus complete obstruction; I95.9 Hypotension, unspecified; I11.0 Hypertensive heart disease with heart failure; Z99.81 Dependence on supplemental oxygen; J44.9 Chronic obstructive pulmonary disease, unspecified; I48.2 Chronic atrial fibrillation; E78.5 Hyperlipidemia, unspecified; I45.10 Unspecified right bundle-branch block; I25.10 Atherosclerotic heart disease of native coronary artery without angina pectoris; G47.33 Obstructive sleep apnea (adult) (pediatric); E11.9 Type 2 diabetes mellitus without complications; I71.4 Abdominal aortic aneurysm, without rupture; F17.210 Nicotine dependence, cigarettes, uncomplicated; Z79.84 Long term (current) use of oral hypoglycemic drugs; Z79.82 Long term (current) use of aspirin; Z79.51 Long term (current) use of inhaled steroids; Z79.52 Long term (current) use of systemic steroids; Z79.899 Other long term (current) drug therapy; Z82.49 Family history of ischemic heart disease and other diseases of the circulatory system
CPT/HCPCS: 36415; 71045; 74177; 80048; 80053; 82272; 83735; 84484; 85014; 85018; 85025; 85610; 86900; 86901; 87205; 87493; 87641; 87899; 93005; 99156; 99157; 99284; A9270-GY; J2250; J2543; J2920; J3010; J3475; J3480; Q9967

== ENCOUNTER 2018-10-01 13:54 | Emergency (ER) | payer MEDICARE ==
[2018-10-01 14:00] VITALS: BP 139/76
== END 2018-10-01 16:18 | disposition left against medical advice (07) ==
LOC: ED 13:54
DX: M54.9 Dorsalgia, unspecified (principal); Z53.21 Procedure and treatment not carried out due to patient leaving prior to being seen by health care provider

== ENCOUNTER 2019-04-04 10:03 | Emergency (ER) | payer MEDICARE ==
--- NOTE | 2019-04-04 10:22 | ED ---
Complex/Multi-Sys Presentation - HPI Summary HPI Summary: 73 year old M arriving via private car with complains of shortness of breath, cough, bilateral hand and bilateral ankle swelling, and an episode of light headedness and dizziness which lasted several minutes and has since resolved, all of which started yesterday 04/03/2019 AM. Patient states he sleeps on two pillows and inclined bed at night. states he sometimes wears oxygen at night. Patient reports recent changes in weight. Patient denies fever, chills , erythema of eyes, sore throat, chest pain, abdominal pain, nausea/vomiting, decreased appetite, dysuria, hematuria, myalgia, pain in lower extremities, rash. Symptoms aggravated by nothing. Symptoms alleviated by nothing. Medications reviewed. Took his AM medications prior to arrival. Patient has nebulizer at home. On prednisone since November 2018. Taken off anticoagulants recently. Hx diabetes, hypertension, hypercholesterolemia, Crohn's disease. Patient states he has been having difficulty with his visions since December 2018 for which he went to the eye doctor and was given steroid drops which have helped. - History Of Current Complaint Chief Complaint: EDShortnessOfBreath Hx Obtained From: Patient Onset/Duration: Lasting Hours - 04/03/2019 AM, Still Present Timing: Constant Aggravating Factor(s): Nothing Alleviating Factor(s): Nothing Associated Signs And Symptoms: Positive: Other - NEG: fever, chills, erythema of eyes, sore throat, chest pain, abdominal pain, nausea/vomiting, decreased appetite, dysuria, hematuria, myalgia, pain in lower extremities, rash - Allergies/Home Medications Allergies/Adverse Reactions: Allergies Allergy/AdvReac Type Severity Reaction Status Date / Time No Known Allergies Allergy Verified 04/04/19 10:11 Home Medications: Home Medications Alendronate (NF) [Fosamax (NF)] 70 mg PO WEEKLY 04/04/19 [History Confirmed ] Dapagliflozin 10 mg Tab (Nf) [Farxiga] 10 mg PO DAILY 04/04/19 [History Confirmed 04/04/19] predniSONE 20 mg TAB [Deltasone 20 MG TAB*] 20 mg PO BID 04/04/19 [History Confirmed 04/04/19] PMH/Surg Hx/FS Hx/Imm Hx Endocrine/Hematology History: Reports: Hx Diabetes Cardiovascular History: Reports: Hx Angina, Hx Atrial Fibrillation, Hx Congestive Heart Failure, Hx Hypercholesterolemia, Hx Hypertension, Other Cardiovascular Problems/Disorders - Cardiac catheterization Respiratory History: Reports: Hx Asthma, Hx Chronic Obstructive Pulmonary Disease (COPD), Hx Pneumonia - 12/2016, Hx Sleep Apnea - No CPAP, 02 PRN, Other Respiratory Problems/Disorders - Pulmonary hypertension GI History: Reports: Hx Crohn's Disease, Hx Gastrointestinal Bleed - LGIB 08/2017 , Other GI Disorders - Inguinal hernia, Hepatomegaly History: Reports: Hx Kidney Stones - with hardened, dilated ureters Denies: Hx Renal Disease, Other Problems/Disorders Musculoskeletal History: Reports: Hx Arthritis - Legs and back, Hx Back Problems - L5-S1 spondylosis, Other Musculoskeletal History - spinal fx Sensory History: Reports: Hx Cataracts, Hx Hearing Aid Denies: Hx Contacts or Glasses, Hx Glaucoma Opthamlomology History: Reports: Hx Cataracts Denies: Hx Contacts or Glasses, Hx Glaucoma Neurological History: Denies: Other Neuro Impairments/Disorders - Surgical History Surgery Procedure, Year, and Place: CARDIAC CATH WITH STENTS Hx Anesthesia Reactions: No Infectious Disease History: No Infectious Disease History: Denies: Traveled Outside the [place] in Last 30 Days - Family History Known Family History: Positive: Diabetes, Respiratory Disease - COPD - Social History Alcohol Use: Occasionally Substance Use Type: Reports: None Hx Tobacco Use: Yes Smoking Status (MU): Heavy Every Day Tobacco Smoker Type: Cigarettes Amount Used/How Often: 1 ppd Have You Smoked in the Last Year: Yes Review of Systems Negative: Fever, Chills Negative: Erythema Negative: Sore Throat Negative: Chest Pain Positive: Shortness Of Breath, Cough Positive: Other - recent changes in weight. Negative: Abdominal Pain, Vomiting , Nausea Negative: dysuria, hematuria Positive: Other - bilateral hand and bilateral ankle swelling. Negative: Myalgia Negative: Rash Neurological/Mental Status: Other - light headedness, dizziness All Other Systems Reviewed And Are Negative: Yes Physical Exam - Summary Physical Exam Summary: Constitutional: Well-developed, Well-nourished, Alert. (-) Distressed Skin: Warm, Dry HENT: Normocephalic; Atraumatic Eyes: Conjunctiva normal Neck: Musculoskeletal ROM normal neck. (-) JVD, (-) Stridor, (-) Tracheal deviation Cardio: Rhythm regular, rate normal, Heart sounds normal; Intact distal pulses; The pedal pulses are 2+ and symmetric. Radial pulses are 2+ and symmetric. (-) Murmur Pulmonary/Chest wall: mildly diminished lung sounds and crackles; mildly tachypneic Abd: Soft, (-) tenderness, (-) Distension, (-) Guarding, (-) Rebound Musculoskeletal: trace edema bilateral lower extremities and upper extremities Lymph: (-) Cervical adenopathy Neuro: Alert, Oriented x3 Psych: Mood and affect Normal Triage Information Reviewed: Yes Vital Signs On Initial Exam: Initial Vitals Temp Pulse Resp BP Pulse Ox 97.2 F 88 22 143/92 96 04/04/19 10:07 04/04/19 10:07 04/04/19 10:07 04/04/19 10:07 04/04/19 10:07 Vital Signs Reviewed: Yes Procedures - Sedation Patient Received Moderate/Deep Sedation with Procedure: No Diagnostics - Vital Signs Vital Signs Temp Pulse Resp BP Pulse Ox 04/04/19 10:07 97.2 F 88 22 143/92 96 - Laboratory Result Diagrams: 04/04/19 10:18 04/04/19 10:18 Lab Statement: Any lab studies that have been ordered have been reviewed, and results considered in the medical decision making process. - Radiology CXR Radiology Interpretation Completed By: Radiologist Summary of Radiographic Findings: LOW LUNG VOLUMES, SMALL RIGHT BASILAR INFILTRATE. ED physician has reviewed this report. - EKG 1123 Cardiac Rate: NL - 77 BPM EKG Rhythm: Atrial Fibrillation Summary of EKG Findings: RR 779. NO STEMI. ED physician has reviewed and interpreted this EKG Re-Evaluation - Re-Evaluation First Eval Re-Evaluation Time: 13:14 Change: Improved Comment: he was diuresing. he reports some improvement in breathing. will ambulate him Second Eval Re-Evaluation Time: 15:42 Change: Improved Comment: patient feels better and would like to go home Complex Multi-Symp Course/Dx Course Of Treatment: 73 y/o M presents with shortness of breath, cough, bilateral hand and bilateral ankle swelling, and an episode of light headedness and dizziness which lasted several minutes and has since resolved, all of which started yesterday 04/03/2019 AM. Medications reviewed. Took his AM medications prior to arrival. Upon physical exam, the patient has mildly diminished lung sounds and crackles and trace edema bilateral lower extremities and upper extremities. He is mildly tachypneic. Bloodwork results with no significant abnormalities except for WBC 11.6, MCV 97, MCH 34, RDW 18, absolute neuts 9.2, chloride 100. An EKG shows atrial fibrillation 77 BPM and RR 779. CXR shows LOW LUNG VOLUMES, SMALL RIGHT BASILAR INFILTRATE. In the ED course, the patient was given Duoneb, Augmentin, Decadron, doxycycline, furosemide. Patient is feeling better and ready to go home. Patient was advised to restrict fluid intake to 1 L per day. I was not inclinced to start diuretics at this point as an outpatient. Patient will be discharged home with rx for Ventolin, Augmentin, doxycycline, nebulizer, prednisone, and follow up from his primary care provider in 3 days. Patient was instructed to return to Emergency Department for new or worsening symptoms. Patient understands and is agreeable to this plan. - Diagnoses Provider Diagnoses: COPD exacerbation, Peripheral edema, Community acquired pneumonia Discharge ED - Sign-Out/Discharge Documenting (check all that apply): Patient Departure - Discharge Plan Condition: Stable Disposition: HOME Prescriptions: Albuterol 2.5MG/3ML (0.083%)* [Ventolin 2.5 MG/3 ML NEB.JOHNNA*] 2.5 mg INH Q4H PRN #60 neb.johnna PRN Reason: Sob/Wheezing Amoxicillin/Clavulanate TAB* [Augmentin TAB 875*] 875 mg PO BID #14 tab DOXYcycline CAP(*) [DOXYcycline 100MG CAP(*)] 100 mg PO BID #10 cap Nebulizer and Compressor [[place] Choice Nebulizer] 1 each MC Q4H PRN #1 each PRN Reason: Shortness Of Breath predniSONE 50 mg TAB [Deltasone 50 mg TAB] 50 mg PO DAILY #4 tab Patient Education Materials: COPD (Chronic Obstructive Pulmonary Disease) (ED) , Community Acquired Pneumonia (ED), Edema (ED) Referrals: Harish Cabrera DO [Primary Care Provider] - 3 Days Additional Instructions: Restrict fluid intake to 1 L per day. Follow up with your primary care provider in 3 days. Return to the Emergency Department for changing or worsening symptoms. - Attestation Statements Document Initiated by Scribe: Yes Documenting Scribe: Sera Smart Provider For Whom Scribe is Documenting (Include Credential): Aurelio Aaron MD Scribe Attestation: Sera Peres, scribed for Aurelio Aaron MD on 04/04/19 at 1547. Status of Scribe Document: Ready
[2019-04-04 10:31] LABS: ABS Basophils 0.1 10^3/ul (0-0.2); ABS Eosinophils 0.1 10^3/ul (0-0.6); ABS Lymphocytes 1.5 10^3/ul (1.0-4.8); ABS Monocytes 0.8 10^3/ul (0-0.8); ABS Neutrophils 9.2 10^3/ul (1.5-7.7); Eosinophil % 0.7 %; Hematocrit 46 % (42-52); Hemoglobin 15.9 g/dL (14.0-18.0); Lymphocyte % 12.6 %; Mean Corpuscular HGB Conc 35 g/dL (31-36); Mean Corpuscular Hemoglobin 34 pg (27-31); Mean Corpuscular Volume 97 fL (80-94); Mean Platelet Volume 7.9 fL (7.4-10.4); Nucleated Red Blood Cells % 0.1; Platelet Count 252 10^3/uL (150-450); Red Blood Count 4.75 10^6 /uL (4.18-5.48); Red Cell Distribution Width 18 % (10-15); White Blood Count 11.6 10^3/uL (3.5-10.8)
[2019-04-04 10:49] LABS: Albumin 4.4 g/dL (3.2-5.2); Albumin/Globulin Ratio 1.5 (1-3); BUN/Creatinine Ratio 18.2 (8-20); Calcium 9.7 mg/dL (8.6-10.3); EGFR African American 79.4 (>60); EGFR Non-African American 65.6 (>60); Potassium 3.9 mmol/L (3.5-5.0); Total Bilirubin 0.4 mg/dL (0.2-1.0); Total Protein 7.4 g/dL (6.4-8.9)
[2019-04-04 10:50] LABS: Troponin I 0.01 ng/mL (<0.03)
[2019-04-04] MEDS ORDERED: Furosemide IV* 10 MG/ML VIAL (40 MG) IV SLOW PU ONE (11:33)
[2019-04-04] MEDS ORDERED: Dexamethasone IV* 4 MG/ML 1 ML (4 MG) IV SLOW PU ONE (11:33)
[2019-04-04] MEDS ORDERED: Albuterol/Ipratropium NEB.SOL* Albuterol 2.5 MG/Ipratropium 0.5 MG 3 ML INH ONE (11:33)
[2019-04-04] MEDS ORDERED: Amoxicillin/Clavulanate TAB* 875 MG PO ONE (11:37)
[2019-04-04] MEDS ORDERED: DOXYcycline CAP(*) 100 MG PO ONE (11:37)
--- OUTSIDE RECORDS SUMMARY | 2019-04-04 11:43 | XMS REPORT | Continuity of Care Document ---
:1945 External Reference #:[id number] Author Name Zoya Patiño NP (transmitted by agent of provider Latoya Gutierrez ) Address [address] [place] [address] Care Team Providers Name Role Phone Harish Cabrera D.O. - Internal Care Team Information Menu Planner Medicine Problems Active Problems Provider Date Crohn's disease Mookie Feng MD Onset: 10/16/2012 Note: initial colonoscopy 04/15/[address] Bergeron had impression of C Diff; Dr Cabrera note Feb 2015 listed Apriso and then [employer] f/u note Nov 2015 listed allergy to Azathioprine and balsalazide - rashes; stopped Remicaid due to cost later said reaction; Humira has been given (see August [address] Polanco for one version of side effects med reactions Remicaid / Humira) Allergies review again - the have been complex to document. He is listed as having trouble with mesalamine products in 2016 notes and after -Apriso balsalazide etc. listing difficulty with managing his INR. This would not truly be an allergy but the point is not critical since his disease is beyond the power of mesalamine to control. Azathioprine listed as causing rash is certainly plausible and is not likely to be useful to challenge. He recalls Remicade as causing a horrible rash that he had a lot of difficulty controlling. A call to the pharmacy revealed for Remicade infusions February - May 2016 500 mg and then to infusions August and 2 weeks later September 2017 600 mg. The pt recognized taking Humira and said it must have been at the hospital ([facility] denies) and he then denies but is described in the August 2017 gastroenterology consult and at length he allowed that maybe he used it at home. See August 2017 inpatient consult. Chronic obstructive lung disease Mookie Feng MD Onset: 10/17/2011 Note: still smoking June - January 2019 Paroxysmal atrial fibrillation Mookie Feng MD Onset: 10/16/2012 Note: had "extra heart beat in late 80s" - on warfarin until August 2017 bleeding admission and then briefly Oct 2017 and bled again; as of 06/08/18 had never had a clot; evaluated at [facility] heart program ([phone] Qi Christianson) Anemia Mookie Feng MD Onset: 10/16/2014 Note: as of 06/21/18 only transfusions new database 3 pRBCs 08/31/17; started MVI with low dose Fe BID 09/04/17 with MCV rising from 67 to 82 Hypersomnia with sleep apnea Mookie Feng MD Onset: 10/16/2014 Note: had CPAP removed from house at one point; Social History Type Date Description Comments Sex Unknown Tobacco Use Start: Unknown Heavy tobacco smoker 1 pack x 50 years (more than 10 cigarettes/day) Smoking Status Reviewed: 02/25/19 Heavy tobacco smoker 1 pack x 50 years (more than 10 cigarettes/day) ETOH Use Denies alcohol use Tobacco Use Start: Unknown Patient is a current smoker, smokes every day Recreational Drug Use Denies Drug Use Exercise Type/Frequency Does not exercise Allergies, Adverse Reactions, Alerts Description No Known Drug Allergies Medications Active Medications SIG Qnty Indications Ordering Date Provider Stelara 90 mg subcutaneous 1ml Zoya Billingsley 02/08/2019 90mg/ml every 8 weeks as KLAUS Patiño Solforrest Prefill maintenance Syringe Prednisone 1 tablet daily 60tabs Mookie Jackson 01/04/2019 20mg MD Jung Tablets Digoxin 1 tablet by mouth Mookie Jackson 10/16/2017 0.125mg daily MD Jung Tablet Metformin HCL 1 by mouth twice a Unknown 05/31/2013 day with meals 1000mg Tablets Lisinopril 1 by mouth every day Unknown 04/02/2011 10mg Tablets One-A-Day Womens 2 tablets with iron Unknown Formula daily Tablets Farxiga Take 1 Tablet By Unknown 10mg Mouth Every Day Tablets Vitamin D 1 by mouth every day Unknown (Cholecalciferol) 2000Units Tablets Calcium 600 1 tablets orally Unknown 600mg daily Tablets [place]-3 CF 1 by mouth once a Unknown 1000mg day Capsules Diltiazem HCL ER 1 by mouth every day Unknown 180mg Caps ER 24HR Pulmicort Flexhaler 1 puff in the M[place], evening TIMBO Giordano 180mcg/Act Aerosol Anoro Ellipta 1 puff once daily Milla, TIMBO Giordano 62.5-25mcg/Inh Aerosol Furosemide 1 by mouth every day Unknown 20mg Tablets Simvastatin take 1 tablet by Unknown 40mg mouth at bedtime Tablets History Medications Stelara 90 mg every eight 2units [facility] 01/29/2019 - 45mg/0.5ML weeks, subcutaneous, KLAUS Patiño 02/08/2019 Solution two 45 mg vials Stelara 90 mg every eight 2units [facility] 09/10/2018 - 45mg/0.5ML weeks, subcutaneous, KLAUS Patiño 01/27/2019 Solution two 45 mg vials Immunizations Description No Information Available Vital Signs Date Vital Result Comment 02/25/2019 2:45pm Heart Rate 81 /min BP Systolic Sitting 135 mmHg BP Diastolic Sitting 72 mmHg 02/25/2019 2:30pm Heart Rate 96 /min BP Systolic 133 mmHg BP Diastolic 85 mmHg Results Test Acquired Date Facility Test Result H/L Range Note Laboratory test 01/03/2019 [facility] Amylase 14 U/L Low 29- [address] [place] [address] [phone] CBC Auto Diff 01/03/2019 [facility] White Blood 11.7 High 3.5- 10.[address] Count 10^3/[place] [address] [phone] Red Blood Count 4.65 10^6/uL Normal 4.18-5.48 Hemoglobin 14.9 g/dL Normal 14.0-18.0 Hematocrit 44 % Normal 42-52 Mean Corpuscular Volume 95 fL High 80-94 Mean Corpuscular Hemoglobin 32 pg High 27-31 Mean Corpuscular HGB Conc 34 g/dL Normal 31-36 Red Cell Distribution Width 16 % High 10-15 Platelet Count 286 10^3/uL Normal 150-450 Mean Platelet Volume 8.2 fL Normal 7.4-10.4 Abs Neutrophils 8.8 10^3/uL High 1.5-7.7 Abs Lymphocytes 1.2 10^3/uL Normal 1.0-4.8 Abs Monocytes 1.4 10^3/uL High 0-0.8 Abs Eosinophils 0.2 10^3/uL Normal 0-0.6 Abs Basophils 0.1 10^3/uL Normal 0-0.2 Abs Nucleated RBC 0.0 10^3/uL Granulocyte % 75.6 % Lymphocyte % 10.1 % Monocyte % 11.7 % Eosinophil % 2.1 % Basophil % 0.5 % Nucleated Red Blood Cells % 0.0 Comp Metabolic 01/03/2019 [facility] Sodium 140 mmol/L Normal 135-[address] [place] [address] [phone] Potassium 4.2 mmol/L Normal 3.5-5.0 Chloride 99 mmol/L Low 101-111 Co2 Carbon Dioxide 32 mmol/L Normal 22-32 Anion Gap 9 mmol/L Normal 2-11 Glucose 92 mg/dL Normal 70-100 Blood Urea Nitrogen 13 mg/dL Normal 6-24 Creatinine 1.17 mg/dL Normal 0.67-1.17 BUN/Creatinine Ratio 11.1 Normal 8-20 Calcium 9.9 mg/dL Normal 8.6-10.3 Total Protein 7.2 g/dL Normal 6.4-8.9 Albumin 4.1 g/dL Normal 3.2-5.2 Globulin 3.1 g/dL Normal 2-4 Albumin/Globulin Ratio 1.3 Normal 1-3 Total Bilirubin 0.40 mg/dL Normal 0.2-1.0 Alkaline Phosphatase 102 U/L Normal 34-104 Alt 17 U/L Normal 7-52 Ast 14 U/L Normal 13-39 Egfr Non- 61.1 >60 Egfr 73.9 >60 1 Laboratory test 01/03/2019 [facility] C Reactive 48.90 mg/L High <8.[address] [place] [address] [phone] Lipase < 10 U/L Low 11.0-82.0 Uric Acid 7.0 mg/dL Normal 4.4-7.6 Urinalysis Profile 01/03/2019 [facility] Urine Color Yellow [address] [place] [address] [phone] Urine Appearance Clear Urine Specific Danielson 1.008 Low 1.010-1.030 Urine pH 5.0 Normal 5-9 Urine Urobilinogen Negative Negative Urine Ketones Negative Negative Urine Protein Negative Negative Urine Leukocytes Negative Negative Urine Blood Negative Negative Urine Nitrite Negative Negative Urine Bilirubin Negative Negative Urine Glucose 3+(>=500 mg/dL) Abnormal Negative CBC No Diff 11/05/2018 [facility] White Blood 11.8 10^3/uL High 3.5-10.[address] [place] [address] [phone] Red Blood Count 4.45 10^6/uL Normal 4.18-5.48 Hemoglobin 13.8 g/dL Low 14.0-18.0 Hematocrit 42 % Normal 42-52 Mean Corpuscular Volume 94 fL Normal 80-94 Mean Corpuscular Hemoglobin 31 pg Normal 27-31 Mean Corpuscular HGB Conc 33 g/dL Normal 31-36 Red Cell Distribution Width 19 % High 10-15 Platelet Count 291 10^3/uL Normal 150-450 Mean Platelet Volume 8.0 fL Normal 7.4-10.4 Comp Metabolic 11/05/2018 [facility] Sodium 140 mmol/L Normal 135-145 Panel [facility] [place] [address] [phone] Potassium 4.0 mmol/L Normal 3.5-5.0 Chloride 103 mmol/L Normal 101-111 Co2 Carbon Dioxide 29 mmol/L Normal 22-32 Anion Gap 8 mmol/L Normal 2-11 Glucose 126 mg/dL High 70-100 Blood Urea Nitrogen 17 mg/dL Normal 6-24 Creatinine 1.19 mg/dL High 0.67-1.17 BUN/Creatinine Ratio 14.3 Normal 8-20 Calcium 9.2 mg/dL Normal 8.6-10.3 Total Protein 6.8 g/dL Normal 6.4-8.9 Albumin 4.2 g/dL Normal 3.2-5.2 Globulin 2.6 g/dL Normal 2-4 Albumin/Globulin Ratio 1.6 Normal 1-3 Total Bilirubin 0.40 mg/dL Normal 0.2-1.0 Alkaline Phosphatase 87 U/L Normal 34-104 Alt 16 U/L Normal 7-52 Ast 13 U/L Normal 13-39 Egfr Non- 60.1 >60 Egfr 72.7 >60 2 Laboratory test 11/05/2018 [facility] C Reactive 16.16 mg/L High <8.[address] [place] [address] [phone] Ferritin 20.9 ng/mL Low 24-336 Laboratory test 08/27/2018 [facility] Quantiferon Gold <pending > finding [address] [place] [address] [phone] Quantiferon-TB 08/27/2018 [facility] QuantiferonTb Negative Negative [address] Gold [address] [place] [address] [phone] TB1 Ag minus Nil Result 0.00 IU/mL TB2 Ag minus Nil Result 0.00 IU/mL Mitogen minus Nil Result 12.16 IU/mL Nil Result 0.04 IU/mL 1 Because ethnic data is not always [...] 5 Kidney failure <15 (or dialysis) 2 Because ethnic data is not always readily [...] 15-29 5 Kidney failure <15 (or dialysis) 3 M. tuberculosis infection NOT likely Procedures Date Code Description Status 06/15/2018 [id number] Colonoscopy Completed 03/04/2015 [id number] Colonoscopy Completed 04/16/2013 [id number] Colonoscopy Completed Medical Devices Description No Information Available Encounters Type Date Location Provider Dx Diagnosis Office Visit 01/28/2019 [facility] Gastroenter[facility] Mookie Jackson K50.918 Crohn's disease, 4:15p MD Jung unspecified, with other complication F17.210 Nicotine dependence, cigarettes, uncomplicated J44.9 Chronic obstructive pulmonary disease, unspecified R21 Rash and other nonspecific skin eruption Z79.899 Other assisted (current) drug therapy Office 01/03/2019 [facility] Gastroenterology Mookie Jackson K50.918 Crohn's disease, Visit 9:00a MD Jung unspecified, with other complication R21 Rash and other nonspecific skin eruption F17.210 Nicotine dependence, cigarettes, uncomplicated J44.9 Chronic obstructive pulmonary disease, unspecified Office Visit 11/05/2018 [facility] Gastroenterology Zoya D50.9 Iron deficiency 3:15p Analilia anemia, Kaylyn, KLAUS unspecified K50.918 Crohn's disease, unspecified, with other complication Z79.899 Other assisted (current) drug therapy Z79.52 [facility] (current) use of systemic steroids Z79.51 [facility] (current) use of inhaled steroids Assessments Date Code Description Provider 01/28/2019 K50.918 Crohn's disease, unspecified, with Mookie Feng MD other complication 01/28/2019 F17.210 Nicotine dependence, cigarettes, Mookie Feng MD uncomplicated 01/28/2019 J44.9 Chronic obstructive pulmonary disease, Mookie Feng MD unspecified 01/28/2019 R21 Rash and other nonspecific skin Mookie Feng MD eruption 01/28/2019 Z79.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 Mookie Feng MD 01/03/2019 K50.918 Crohn's disease, unspecified, with Mookie Feng MD other complication 01/03/2019 R21 Rash and other nonspecific skin Mookie Feng MD eruption 01/03/2019 F17.210 Nicotine dependence, cigarettes, Mookie Feng MD uncomplicated 01/03/2019 J44.9 Chronic obstructive pulmonary disease, Mookie Feng MD unspecified 11/05/2018 D50.9 Iron deficiency anemia, unspecified Zoya Patiño NP 11/05/2018 K50.918 Crohn's disease, unspecified, with Zoya Patiño NP other complication 11/05/2018 Z79.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 Zoya Patiño NP 11/05/2018 Z79.52 [facility] (current) use of systemic Zoya Patiño NP steroids 11/05/2018 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
[2019-04-04 14:45] LABS: Digoxin 0.5 ng/ml (0.8-2.0)
[2019-04-04 15:56] VITALS: BP 130/103
== END 2019-04-04 15:55 | disposition home or self-care (01) ==
LOC: ED 10:03
DX: J44.1 Chronic obstructive pulmonary disease with (acute) exacerbation (principal); J18.9 Pneumonia, unspecified organism; R06.02 Shortness of breath; R05 Cough; R60.9 Edema, unspecified; R42 Dizziness and giddiness; E11.9 Type 2 diabetes mellitus without complications; I20.9 Angina pectoris, unspecified; I48.91 Unspecified atrial fibrillation; I50.9 Heart failure, unspecified; E78.00 Pure hypercholesterolemia, unspecified; I10 Essential (primary) hypertension; J44.9 Chronic obstructive pulmonary disease, unspecified; K50.90 Crohn's disease, unspecified, without complications; K92.2 Gastrointestinal hemorrhage, unspecified; F17.210 Nicotine dependence, cigarettes, uncomplicated; Z95.5 Presence of coronary angioplasty implant and graft; Z87.442 Personal history of urinary calculi; Z79.52 Long term (current) use of systemic steroids
CPT/HCPCS: 36415; 71046; 80053; 80162; 83605; 83880; 84484; 85025; 93005; 96374; 96375; 99283; A9270-GY; J1100; J1940

== ENCOUNTER 2019-04-24 19:45 | Inpatient (IN) | payer MEDICARE ==
[2019-04-24 21:03] LABS: ABS Eosinophils 0.2 10^3/ul (0-0.6); ABS Lymphocytes 0.5 10^3/ul (1.0-4.8); ABS Monocytes 0.6 10^3/ul (0-0.8); ABS Neutrophils 7.8 10^3/ul (1.5-7.7); Eosinophil % 1.7 %; Hematocrit 42 % (42-52); Hemoglobin 14.4 g/dL (14.0-18.0); Lymphocyte % 5.4 %; Mean Corpuscular HGB Conc 35 g/dL (31-36); Mean Corpuscular Hemoglobin 34 pg (27-31); Mean Corpuscular Volume 99 fL (80-94); Mean Platelet Volume 7.9 fL (7.4-10.4); Platelet Count 224 10^3/uL (150-450); Red Blood Count 4.23 10^6 /uL (4.18-5.48); Red Cell Distribution Width 18 % (10-15); White Blood Count 9.1 10^3/uL (3.5-10.8)
[2019-04-24 21:11] LABS: INR 1.03 (0.82-1.09)
[2019-04-24 21:22] LABS: ALT 26 U/L (7-52); AST 16 U/L (13-39); Albumin 3.8 g/dL (3.2-5.2); Albumin/Globulin Ratio 1.4 (1-3); Alkaline Phosphatase 85 U/L (34-104); Anion Gap 7 mmol/L (2-11); BUN/Creatinine Ratio 13.3 (8-20); Blood Urea Nitrogen 15 mg/dL (6-24); CO2 Carbon Dioxide 29 mmol/L (22-32); Calcium 9.4 mg/dL (8.6-10.3); Chloride 101 mmol/L (101-111); EGFR Non-African American 63.6 (>60); Globulin 2.8 g/dL (2-4); Glucose 163 mg/dL (70-100); Potassium 4.4 mmol/L (3.5-5.0); Sodium 137 mmol/L (135-145); Total Protein 6.6 g/dL (6.4-8.9)
[2019-04-24 21:31] LABS: Troponin I 0.03 ng/mL (<0.03)
--- NOTE | 2019-04-24 22:13 | ED ---
Lower Extremity - HPI Summary HPI Summary: Patient is a 73 y/o M presenting to [facility] with a chief complaint of worsening edema of the BLE for a few weeks with new onset erythema beginning two days ago. He reports that he is on Prednisone chronically for Crohns disease, and he stopped taking the Prednisone about a week ago after the swelling in his legs began a few weeks ago. Two days ago, he noticed that the legs became erythematous and more painful. Symptoms rated 3/10 in severity. He denies any fevers, CP, N/V/D, or appetite change. He has chronic cough and SOB from COPD without acute changes. He notes O2 use at home PRN as well as Albuterol, Pulmicort, and Anoro. PMHx: diabetes, angina, atrial fibrillation, CHF, HLD, HTN , asthma COPD, cardiac cath with stents. FHx: cardiac disease (IA in father), diabetes. Current smoker, occasional EtOH, no substance use. Medications reviewed. Allergies noted. - History of Current Complaint Chief Complaint: EDGeneral Stated Complaint: BOTH FEET SWOLLEN AND RED PER PT Time Seen by Provider: 04/24/19 21:48 Hx Obtained From: Patient Mechanism Of Injury: Unknown Onset of Pain: Days Onset/Duration: Still Present Severity Initially: Mild Severity Currently: Moderate Pain Intensity: 3 Pain Scale Used: 0-10 Numeric Location: Is Discrete @ - BLE Character Of Pain: Aching Associated Signs And Symptoms: Positive: Swelling, Redness. Negative: Fever, Other - chest pain, SOB, cough, nausea, vomiting, appetite change Aggravating Factor(s): Nothing Alleviating Factor(s): Nothing - Allergies/Home Medications Allergies/Adverse Reactions: Allergies Allergy/AdvReac Type Severity Reaction Status Date / Time No Known Allergies Allergy Verified 04/24/19 23:18 Home Medications: Home Medications Lisinopril TAB* [Prinivil TAB 10 MG*] 10 mg PO DAILY 04/12/13 [History Confirmed 04/24/19] metFORMIN* [Glucophage 1000 MG TAB *] 1,000 mg PO BID WITH MEALS 04/12/13 [ History Confirmed 04/24/19] Digoxin TAB* [Lanoxin TAB*] 125 mcg PO DAILY 02/06/15 [History Confirmed ] Simvastatin (NF) [Zocor (NF)] 40 mg PO QPM 12/18/15 [History Confirmed 04/24/19] Furosemide TAB* [Lasix TAB*] 20 mg PO DAILY 08/30/17 [History Confirmed 04/24/19 ] Hastings-3 Fatty Acids (Nf) [Fish Oil (NF)] 2,400 mg PO DAILY 08/30/17 [History Confirmed 04/24/19] dilTIAZem HCl [Diltiazem 24Hr ER] 180 mg PO QAM 08/30/17 [History Confirmed 06/09] Budesonide Flexhaler 180 (NF) [Pulmicort Flexhaler 180 mcg/act (NF)] 1 puff INH BID 11/29/17 [History Confirmed 04/24/19] Umeclidin/Vilant 62.5 MDI(NF) [ANORO 62.5/25 Ellipta DEVICE (NF)] 1 puff INH DAILY 11/29/17 [History Confirmed 04/24/19] Calcium Carbonate [Calcium] 1,200 mg PO DAILY 05/21/18 [History Confirmed ] Cholecalciferol (Vitamin D3) [Vitamin D3] 2,000 unit PO DAILY 05/21/18 [History Confirmed 04/24/19] Albuterol 2.5MG/3ML (0.083%)* [Ventolin 2.5 MG/3 ML NEB.DOMONIQUE*] 2.5 mg INH Q4H PRN #60 neb.domonique 04/04/19 [Rx Confirmed 04/24/19] Dapagliflozin 10 mg Tab (Nf) [Farxiga] 10 mg PO DAILY 04/04/19 [History Confirmed 04/24/19] Nebulizer and Compressor [[place] Choice Nebulizer] 1 each MC Q4H PRN #1 each [Rx Confirmed 04/24/19] predniSONE 20 mg TAB [Deltasone 20 MG TAB*] 20 mg PO BID 04/04/19 [History Confirmed 04/24/19] PMH/Surg Hx/FS Hx/Imm Hx Endocrine/Hematology History: Reports: Hx Diabetes Cardiovascular History: Reports: Hx Angina, Hx Atrial Fibrillation, Hx Congestive Heart Failure, Hx Hypercholesterolemia, Hx Hypertension, Other Cardiovascular Problems/Disorders - Cardiac catheterization Respiratory History: Reports: Hx Asthma, Hx Chronic Obstructive Pulmonary Disease (COPD), Hx Pneumonia - 12/2016, Hx Sleep Apnea - No CPAP, 02 PRN, Other Respiratory Problems/Disorders - Pulmonary hypertension GI History: Reports: Hx Crohn's Disease, Hx Gastrointestinal Bleed - LGIB 08/2017 , Other GI Disorders - Inguinal hernia, Hepatomegaly History: Reports: Hx Kidney Stones - with hardened, dilated ureters Denies: Hx Renal Disease, Other Problems/Disorders Musculoskeletal History: Reports: Hx Arthritis - Legs and back, Hx Back Problems - L5-S1 spondylosis, Other Musculoskeletal History - spinal fx Sensory History: Reports: Hx Cataracts, Hx Hearing Aid Denies: Hx Contacts or Glasses, Hx Glaucoma Opthamlomology History: Reports: Hx Cataracts Denies: Hx Contacts or Glasses, Hx Glaucoma Neurological History: Denies: Other Neuro Impairments/Disorders - Surgical History Surgical History: Yes Surgery Procedure, Year, and Place: CARDIAC CATH WITH STENTS Hx Anesthesia Reactions: No Infectious Disease History: No Infectious Disease History: Denies: Traveled Outside the [place] in Last 30 Days - Family History Known Family History: Positive: Diabetes, Respiratory Disease - COPD - Social History Alcohol Use: Occasionally Substance Use Type: Reports: None Hx Tobacco Use: Yes Smoking Status (MU): Heavy Every Day Tobacco Smoker Type: Cigarettes Amount Used/How Often: 1 ppd Have You Smoked in the Last Year: Yes - Additional Comments History Additional Comments: diabetes, angina, atrial fibrillation, CHF, HLD, HTN, asthma COPD, cardiac cath with stents Review of Systems - ROS Summary Review of Systems Summary: Home Medications Medication Instructions Recorded Confirmed Type Lisinopril TAB* [Prinivil TAB 10 10 mg PO DAILY 04/12/13 04/24/19 History MG*] metFORMIN* [Glucophage 1000 MG TAB 1,000 mg PO BID WITH MEALS 04/12/13 04/24/19 History *] Digoxin TAB* [Lanoxin TAB*] 125 mcg PO DAILY 02/06/15 04/24/19 History Simvastatin (NF) [Zocor (NF)] 40 mg PO QPM 02/06/15 04/24/19 History Furosemide TAB* [Lasix TAB*] 20 mg PO DAILY 08/30/17 04/24/19 History Hastings-3 Fatty Acids (Nf) [Fish Oil 2,400 mg PO DAILY 08/30/17 04/24/19 History (NF)] dilTIAZem HCl [Diltiazem 24Hr ER] 180 mg PO QAM 08/30/17 04/24/19 History Budesonide Flexhaler 180 (NF) 1 puff INH BID 11/29/17 04/24/19 History [Pulmicort Flexhaler 180 mcg/act (NF)] Umeclidin/Vilant 62.5 MDI(NF) 1 puff INH DAILY 11/29/17 04/24/19 History [ANORO 62.5/25 Ellipta DEVICE (NF)] Calcium Carbonate [Calcium] 1,200 mg PO DAILY 05/21/18 04/24/19 History Cholecalciferol (Vitamin D3) 2,000 unit PO DAILY 05/21/18 04/24/19 History [Vitamin D3] Albuterol 2.5MG/3ML (0.083%)* 2.5 mg INH Q4H PRN #60 neb.domonique 04/04/19 04/24/19 Rx [Ventolin 2.5 MG/3 ML NEB.DOMONIQUE*] Dapagliflozin 10 mg Tab (Nf) 10 mg PO DAILY 04/04/19 04/24/19 History [Farxiga] Nebulizer and Compressor [[place] 1 each MC Q4H PRN #1 each 04/04/19 04/24/19 Rx Choice Nebulizer] predniSONE 20 mg TAB [Deltasone 20 20 mg PO BID 04/04/19 04/24/19 History MG TAB*] Negative: Fever Negative: Chest Pain Negative: Shortness Of Breath, Cough Negative: Vomiting, Nausea, Other - appetite change Positive: Edema - BLE Positive: Other - erythema BLE All Other Systems Reviewed And Are Negative: Yes Physical Exam - Summary Physical Exam Summary: General: Well-developed, Morbidly obese elderly male. Appears mildly short of breath at rest. HEENT: Normocephalic, Atraumatic. Eyes: Conjuctiva normal, PERRL. Oropharynx: Clear, mucous membranes moist, (-) exudates. Neck: Soft, FROM, (-) lymphadenopathy, (-) thyromegaly, (-) JVD. Cardiovascular: Normal sinus rhythm, (-) murmur. Lungs: Clear to auscultation bilaterally (-) wheezes, (-) rales, (-) rhonchi. Abdomen: Soft, non-tender, non-distended, (-) organomegaly, normal bowel sounds. Back: (-) CVA tenderness Extremities: No edema. Skin: Warm, dry, (-) rash. Neuro: Alert and oriented x3, moves all extremities equally. No ataxia. No gait disturbance. No sensory deficit. Normal strength, normal sensation. Psychiatric: Mood normal, affect normal. Triage Information Reviewed: Yes Vital Signs On Initial Exam: Initial Vitals Temp Pulse Resp BP Pulse Ox 97.7 F 75 22 118/66 95 04/24/19 19:53 04/24/19 19:53 04/24/19 19:53 04/24/19 19:53 04/24/19 19:53 Vital Signs Reviewed: Yes Procedures - Sedation Patient Received Moderate/Deep Sedation with Procedure: No Diagnostics - Vital Signs Vital Signs Temp Pulse Resp BP Pulse Ox 04/24/19 19:53 97.7 F 75 22 118/66 95 - Laboratory Lab Results: Lab Results 04/24/19 04/24/19 04/24/19 Range/Units 20:49 20:49 20:49 WBC 9.1 (3.5-10.8) 10^3/uL RBC 4.23 (4.18-5.48) 10^6 /uL Hgb 14.4 (14.0-18.0) g/dL Hct 42 (42-52) % MCV 99 H (80-94) fL MCH 34 H (27-31) pg MCHC 35 (31-36) g/dL RDW 18 H (10-15) % Plt Count 224 (150-450) 10^3/uL MPV 7.9 (7.4-10.4) fL Neut % (Auto) 85.5 % Lymph % (Auto) 5.4 % [place] % (Auto) 7.1 % Eos % (Auto) 1.7 % Baso % (Auto) 0.3 % Absolute Neuts (auto) 7.8 H (1.5-7.7) 10^3/ul Absolute Lymphs (auto) 0.5 L (1.0-4.8) 10^3/ul Absolute Monos (auto) 0.6 (0-0.8) 10^3/ul Absolute Eos (auto) 0.2 (0-0.6) 10^3/ul Absolute Basos (auto) 0.0 (0-0.2) 10^3/ul Absolute Nucleated RBC 0.0 10^3/ul Nucleated RBC % 0.0 INR (Anticoag Therapy) (0.82-1.09) Sodium 137 (135-145) mmol/L Potassium 4.4 (3.5-5.0) mmol/L Chloride 101 (101-111) mmol/L Carbon Dioxide 29 (22-32) mmol/L Anion Gap 7 (2-11) mmol/L BUN 15 (6-24) mg/dL Creatinine 1.13 (0.67-1.17) mg/dL Est GFR ( Amer) 77.0 (>60) Est GFR (Non-Af Amer) 63.6 (>60) BUN/Creatinine Ratio 13.3 (8-20) Glucose 163 H (70-100) mg/dL Lactic Acid 2.0 (0.5-2.0) mmol/L Calcium 9.4 (8.6-10.3) mg/dL Total Bilirubin 0.50 (0.2-1.0) mg/dL AST 16 (13-39) U/L ALT 26 (7-52) U/L Alkaline Phosphatase 85 (34-104) U/L Troponin I 0.03 H* (<0.03) ng/mL B-Natriuretic Peptide (<=100) pg/mL Total Protein 6.6 (6.4-8.9) g/dL Albumin 3.8 (3.2-5.2) g/dL Globulin 2.8 (2-4) g/dL Albumin/Globulin Ratio 1.4 (1-3) Digoxin Pending 04/24/19 04/24/19 Range/Units 20:49 20:49 WBC (3.5-10.8) 10^3/uL RBC (4.18-5.48) 10^6 /uL Hgb (14.0-18.0) g/dL Hct (42-52) % MCV (80-94) fL MCH (27-31) pg MCHC (31-36) g/dL RDW (10-15) % Plt Count (150-450) 10^3/uL MPV (7.4-10.4) fL Neut % (Auto) % Lymph % (Auto) % [place] % (Auto) % Eos % (Auto) % Baso % (Auto) % Absolute Neuts (auto) (1.5-7.7) 10^3/ul Absolute Lymphs (auto) (1.0-4.8) 10^3/ul Absolute Monos (auto) (0-0.8) 10^3/ul Absolute Eos (auto) (0-0.6) 10^3/ul Absolute Basos (auto) (0-0.2) 10^3/ul Absolute Nucleated RBC 10^3/ul Nucleated RBC % INR (Anticoag Therapy) 1.03 (0.82-1.09) Sodium (135-145) mmol/L Potassium (3.5-5.0) mmol/L Chloride (101-111) mmol/L Carbon Dioxide (22-32) mmol/L Anion Gap (2-11) mmol/L BUN (6-24) mg/dL Creatinine (0.67-1.17) mg/dL Est GFR ( Amer) (>60) Est GFR (Non-Af Amer) (>60) BUN/Creatinine Ratio (8-20) Glucose (70-100) mg/dL Lactic Acid (0.5-2.0) mmol/L Calcium (8.6-10.3) mg/dL Total Bilirubin (0.2-1.0) mg/dL AST (13-39) U/L ALT (7-52) U/L Alkaline Phosphatase (34-104) U/L Troponin I (<0.03) ng/mL B-Natriuretic Peptide 57 (<=100) pg/mL Total Protein (6.4-8.9) g/dL Albumin (3.2-5.2) g/dL Globulin (2-4) g/dL Albumin/Globulin Ratio (1-3) Digoxin Result Diagrams: 04/24/19 20:49 04/24/19 20:49 Lab Statement: Any lab studies that have been ordered have been reviewed, and results considered in the medical decision making process. - Radiology CXR Radiology Interpretation Completed By: ED Physician Summary of Radiographic Findings: No infiltrate. No pleural effusion. ED physician has reviewed and interpreted this report. Pending official read. - EKG 2145 Cardiac Rate: Other Rate - 82 BPM EKG Rhythm: Atrial Fibrillation Summary of EKG Findings: EKG at 2145 reveals atrial fibrillation at 82 BPM, RBBB. This EKG was reviewed and interpreted by Dr. Hutson. Re-Evaluation - Re-Evaluation First Eval Re-Evaluation Time: 01:30 Comment: Patient aware of plan for admission, agreeable with plan. Lower Extremity Course/Dx - Course Course Of Treatment: 73-year-old male presents from home with lower extremity edema. He states he's been having swelling of his feet bilaterally for a couple weeks now. He states over the last 2 days they've been very red. More painful. He does have Crohn's disease. Was recently on prednisone. He states he stopped that about a week ago thinking it may have been causing the swelling. Patient denies any chest pain or shortness of breath. He does have cough and shortness of breath which are unchanged. Known COPD, A. fib, coronary artery disease.. And states he uses oxygen at home as needed. On physical exam patient appears in mild respiratory discomfort at baseline. He has equal breath sounds bilaterally with tight wheezing throughout. +1 edema lower extremity. He has medial erythema of the lower legs and ankle area. No significant warmth. Mild tenderness. Demonstrates an abnormal troponin of 0.03. EKG with no acute ischemic changes. BNP is within normal limits. Chest x-ray shows no acute changes, no acute process. Patient is given DuoNeb. Referred to hospitalist for admission. - Diagnoses Provider Diagnoses: Tobacco use, Lower extremity edema, Elevated troponin - Physician Notifications Discussed Care Of Patient With: Quinten Butler - hospitalist Time Discussed With Above Provider: 00:55 Instructed by Provider To: Other - I discussed the patients case with Dr. Butler, who accepts the patient for admission. Discharge ED - Sign-Out/Discharge Documenting (check all that apply): Patient Departure - admission - Discharge Plan Condition: Stable Disposition: ADMITTED TO [facility] - Billing Disposition and Condition Condition: STABLE Disposition: Admitted to [facility] - Attestation Statements Document Initiated by Scribe: Yes Documenting Scribe: Myrna Erickson Provider For Whom Risa is Documenting (Include Credential): Chacha Hutson MD Scribe Attestation: Myrna Peres, scribed for Chacha Hutson MD on 04/25/19 at 0523. Scribe Documentation Reviewed: Yes Provider Attestation: The documentation as recorded by the Myrna almaguer accurately reflects the service I personally performed and the decisions made by me, Chacha Hutson MD Status of Scribe Document: Viewed
[2019-04-24] MEDS ORDERED: Albuterol/Ipratropium NEB.SOL* Albuterol 2.5 MG/Ipratropium 0.5 MG 3 ML INH ONE (22:15)
[2019-04-24 22:21] LABS: Digoxin 0.6 ng/ml (0.8-2.0)
[2019-04-24 23:35] LABS: Urine Appearance Clear; Urine Bilirubin Negative (Negative); Urine Blood Negative (Negative); Urine Color Yellow; Urine Glucose 3+(>=500 mg/dL) (Negative); Urine Ketones Trace (Negative); Urine Nitrite Negative (Negative); Urine Protein Negative (Negative); Urine Specific Gravity 1.029 (1.010-1.030); Urine Urobilinogen Negative (Negative)
[2019-04-25] MEDS ORDERED: Furosemide IV* 10 MG/ML VIAL (40 MG) IV STA (02:10)
[2019-04-25] MEDS ORDERED: Furosemide IV* 10 MG/ML VIAL (40 MG) ONE (02:33)
[2019-04-25] MEDS ORDERED: Dextrose 50% Syringe 50 ML* 25 GM/50 ML SYRINGE IV PUSH PRN (04:15)
[2019-04-25] MEDS: cefTRIAXone* 1 GM in NS 0.9% 50 ML BAG IVPB SCH (05:04)
[2019-04-25] MEDS ORDERED: Perflutren Lipid Microsphere* 3 ML VIAL ONE (08:36)
[2019-04-25] MEDS: metFORMIN* 1,000 MG TAB PO SCH ×2 (08:59→21:15)
[2019-04-25] MEDS: Diltiazem CD CAP* 180 MG PO SCH (09:00)
[2019-04-25] MEDS ORDERED: Furosemide IV* 10 MG/ML VIAL (40 MG) IV SLOW PU SCH (09:00)
[2019-04-25] MEDS: Atorvastatin* 20 MG TAB PO SCH (09:00)
[2019-04-25] MEDS: DAPAGLIFLOZIN 10 MG TAB (NF) PO SCH (09:00)
[2019-04-25] MEDS: Insulin LISPRO* 1 UNITS UNIT SUBCUT SCH ×4 (09:01→21:15)
[2019-04-25] MEDS: Nicotine PATCH 7 MG/24 HR* PATCH TRANSDERM SCH (09:04)
[2019-04-25] MEDS: Lisinopril TAB* 10 MG PO SCH (09:12)
--- NOTE | 2019-04-25 10:20 | ECHO ---
*[facility]* [place] [address] Fax #: [phone] Transthoracic Echocardiogram Patient: Jonathan Mayberry : 1945 Study Date: 04/25/2019 Age: 73 Gender: M HR: 64 bpm Height: 75 in /190.5 cm BSA: 2.43 m^2 Weight: 254.5 lb /115.7 kg BMI: 31.9 kg/m^2 *[place] Selector: * Mercedes Colindres RDCS RN *Referring Physician: * Quinten Butler *Reading Physician: * Nader Villela MD Indications: Edema. History: Atrial fibrillation. CAD with stents placed. COPD. RICHARD. Risk factors: Current tobacco use. Hypertension. Diabetes mellitus. Obese. Dyslipidemia. Conclusions Summary: - Left ventricle: The cavity size is normal. Wall thickness is mildly increased. Systolic function is normal. The estimated ejection fraction is 55-60%. Wall motion is normal; there are no regional wall motion abnormalities. - Right ventricle: The cavity size is mildly dilated. Systolic function is low normal. Systolic pressure is mildly increased. - Left atrium: The atrium is moderately to severely dilated. - Aortic root: The aortic root is mildly dilated at 3.9 cm. - Pulmonary arteries: Systolic pressure is mildly increased, estimated to be 39 mm Hg. - No significant valvular abnormalities noted. Recommendations: Compared to 08/2017, PASP now mildly elevated was normal previously. Study data: Transthoracic echocardiogram. Procedure: Transthoracic echocardiography was performed. Image quality was fair. The study was technically limited due to body habitus and COPD. Intravenous Definity 3 ml was administered to enhance imaging. Complete 2D, spectral Doppler, and color flow Doppler. Location: Bedside. Patient status: Inpatient. Patient room number: 443-02. Rhythm: Atrial fibrillation. Findings Left ventricle: The cavity size is normal. Wall thickness is mildly increased. Systolic function is normal. The estimated ejection fraction is 55-60%. Wall motion is normal; there are no regional wall motion abnormalities. Left ventricular diastolic function parameters are indeterminate. Right ventricle: The cavity size is mildly dilated. Systolic function is low normal. Systolic pressure is mildly increased. Left atrium: The atrium is moderately to severely dilated. Right atrium: The atrium is moderately dilated. Mitral valve: The Mitral valve annulus appears mildly calcified. The leaflets are mildly thickened. There is no evidence of stenosis. There is trace regurgitation. Aortic valve: The annulus is mildly calcified. The valve is trileaflet. The leaflets are mildly thickened. There is no evidence of stenosis. There is no regurgitation. Tricuspid valve: The leaflets are normal thickness. There is no evidence of stenosis. There is mild regurgitation. Pulmonic valve: Not well visualized. There is trace regurgitation. Aorta: Aortic root: The aortic root is mildly dilated at 3.9 cm. Ascending aorta: The ascending aorta is mildly dilated at 3.8 cm. Aortic arch: The aortic arch is not visualized. Pericardium: A prominent pericardial fat pad is present. There is no significant pericardial effusion. Pulmonary arteries: Not well visualized. Systolic pressure is mildly increased, estimated to be 39 mm Hg. Systemic veins: Inferior vena cava: Not well visualized. Measurements Left ventricle Value Ref Right atrium Value Ref KI, LAX (L) 4.0 cm 4.2 - 5.8 ML dim, ES, A4C 4.2 cm 2.6 - 4.4 ESD, LAX 2.6 cm 2.5 - 4.0 SI dim, ES, A4C (H) 7.2 cm 3.4 - 5.3 FS, LAX 34 % 25 - 43 Estimated RAP 8 mm Hg --------- PW, ED (H) 1.1 cm 0.6 - 1.0 IVS/PW, ED 1.35 Aortic valve Value Ref E', lat lennie, TDI 12.4 cm/sec >=10.0 Lennie diam, ED 2.2 cm ---- ----- E/e', lat lennie, 10 Peak v, S 1.3 m/sec ------- -- TDI VTI, S 24.3 cm --------- E', med lennie, TDI 10.5 cm/sec >=7.0 Mean grad, S 4.0 mm Hg ---- ----- E/e', med lennie, 11 Peak grad, S 7.0 mm Hg ------- -- TDI LVOT/AV, VTI ratio 0.8 --------- E', avg, TDI 11.5 cm/sec E/e', avg, TDI 10 <=14 Mitral valve Value Ref Peak E 1.2 m/sec --------- LVOT Value Ref Decel time 198 ms --------- Peak bruno, S 1.07 m/sec Peak grad, D 5.8 mm Hg --------- VTI, S 19.4 cm Mean grad, S 3 mm Hg Pulmonic valve Value Ref Peak v, S 0.84 m/sec --------- Ventricular septum Value Ref Peak grad, S 3.0 mm Hg --------- IVS, ED (H) 1.5 cm 0.6 - 1.0 Tricuspid valve Value Ref Right ventricle Value Ref Peak RV-RA grad, S 31 mm Hg --------- KI, LAX 4.5 cm Max TR bruno 2.8 m/sec --------- KI minor ax, A4C (H) 3.7 cm 1.9 - 3.5 mid Aortic root Value Ref Pressure, S 39 mm Hg Root diam 3.9 cm <4.5 Left atrium Value Ref Ascending aorta Value Ref AP dim, ES (H) 4.40 cm 3.00 - AAo AP diam, S 3.8 cm --------- 4.00 ML dim, A4C 4.5 cm Pulmonary artery Value Ref SI dim, A4C 7.5 cm Pressure, S 39.0 mm Hg --------- Vol/bsa, ES, 1-p (H) 44 ml/m^2 12 - 37 A4C Vol/bsa, ES, A/L (H) 47 ml/m^2 16 - 34 Legend: (L) and (H) darya values outside specified reference range. Prepared and electronically signed by Nader Villela MD 04/25/2019 10:20
[2019-04-25] MEDS: Tiotropium Brom/Olodaterol MDI INH SCH (10:25)
[2019-04-25] MEDS: Albuterol 2.5 MG/3 ML NEB.SOL* (0.083%) INH PRN (10:32)
--- NOTE | 2019-04-25 12:41 | CONSULT ---
Subjective Date of Service: 04/25/19 Interval History: Admission 04/24/2019 Consult 04/25/2019 Service: Hospitalist Primary Care Physician: Harish Cabrera D.O. Traffic Investigator: Dr. Foster Choi CC: Edema with erythema Reason for consult: CC HPI: Mr. Mayberry is a 73 year old man with 02 dependent COPD who continues tobacco smoking. He is accompanied by his . He noticed worsening edema associated with erythema and was concerned about infection and presented for evaluation and admitted. He has chronic MAIER unchanged. He has no chest discomfort, palpitations or recent syncope. He has been treated with IV diuretics and antibiotics. He wants to go home. Pmhx Vitamin B12 deficiency sleep apnea Anemia - atrial fibrillation not on AC due to GI bleed Crohn's disease Chronic obstructive lung disease HFpEF Surgical Hx: Cataract Removal - Both eyes FH: Father: Stroke - Age 62. SH: Maxine 1965. Patient is a current smoker, smokes every day. Allergies: No Known Drug Allergy Medications Active Medications: Albuterol (Ventolin 2.5 Mg/3 Ml Neb.Domonique*) 2.5 mg INH Q4H PRN PRN Reason: SOB/WHEEZING Last Admin: 04/25/19 10:32 Dose: 2.5 mg Atorvastatin Calcium (Lipitor*) 20 mg PO DAILY [facility] Last Admin: 04/25/19 09:00 Dose: 20 mg Dapagliflozin (Farxiga) 10 mg PO DAILY [facility] Last Admin: 04/25/19 09:00 Dose: Not Given Dextrose (D50w Syringe 50 Ml*) 12.5 gm IV PUSH .FOR FS < 60 - SS PRN PRN Reason: FS < 60 Digoxin (Lanoxin Tab*) 0.125 mg PO DAILY@1700 JULITO Diltiazem HCl (Cardizem Cd Cap*) 180 mg PO DAILY [facility] Last Admin: 04/25/19 09:00 Dose: 180 mg Furosemide (Lasix Iv*) 40 mg IV SLOW PU DAILY [facility] Last Admin: 04/25/19 09:12 Dose: Not Given Ceftriaxone Sodium 1 gm/ (Sodium Chloride) 50 mls @ 100 mls/hr IVPB Q24H [facility] Last Admin: 04/25/19 05:04 Dose: 100 mls/hr Insulin Human Lispro (Humalog*) 0 units SUBCUT ACHS [facility]; Protocol Last Admin: 04/25/19 11:56 Dose: Not Given Lisinopril (Prinivil Tab*) 10 mg PO DAILY [facility] Last Admin: 04/25/19 09:12 Dose: Not Given Metformin HCl (Glucophage*) 1,000 mg PO BID [facility] Last Admin: 04/25/19 08:59 Dose: 1,000 mg Mometasone Furoate (Asmanex 220 Mcg Mdi *) 1 puff INH QPM [facility] Nicotine (Nicotine Patch 7 Mg/24 Hr*) 1 patch TRANSDERM DAILY [facility] Last Admin: 04/25/19 09:04 Dose: 1 patch Pharmacy Profile Note (Nicotine Patch Removal Note*) 1 note PATCH OFF 2099 [facility] Tiotropium [place]/Olodaterol (Stiolto Respimat Inh [place] (60 Puff)) 2 puff INH DAILY [facility] Last Admin: 04/25/19 10:25 Dose: 2 puff Home Medications: Lisinopril TAB* [Prinivil TAB 10 MG*] 10 mg PO DAILY 04/12/13 [History Confirmed 04/24/19] metFORMIN* [Glucophage 1000 MG TAB *] 1,000 mg PO BID WITH MEALS 04/12/13 [ History Confirmed 04/24/19] Digoxin TAB* [Lanoxin TAB*] 125 mcg PO DAILY 02/06/15 [History Confirmed ] Simvastatin (NF) [Zocor (NF)] 40 mg PO QPM 02/06/15 [History Confirmed 04/24/19] Furosemide TAB* [Lasix TAB*] 20 mg PO DAILY 08/30/17 [History Confirmed 04/24/19 ] Bend-3 Fatty Acids (Nf) [Fish Oil (NF)] 2,400 mg PO DAILY 08/30/17 [History Confirmed 04/24/19] dilTIAZem HCl [Diltiazem 24Hr ER] 180 mg PO QAM 08/30/17 [History Confirmed 06/09] Budesonide Flexhaler 180 (NF) [Pulmicort Flexhaler 180 mcg/act (NF)] 1 puff INH BID 11/29/17 [History Confirmed 04/24/19] Umeclidin/Vilant 62.5 MDI(NF) [ANORO 62.5/25 Ellipta DEVICE (NF)] 1 puff INH DAILY 11/29/17 [History Confirmed 04/24/19] Calcium Carbonate [Calcium] 1,200 mg PO DAILY 05/21/18 [History Confirmed ] Cholecalciferol (Vitamin D3) [Vitamin D3] 2,000 unit PO DAILY 05/21/18 [History Confirmed 04/24/19] Albuterol 2.5MG/3ML (0.083%)* [Ventolin 2.5 MG/3 ML NEB.DOMONIQUE*] 2.5 mg INH Q4H PRN #60 neb.domonique 04/04/19 [Rx Confirmed 04/24/19] Dapagliflozin 10 mg Tab (Nf) [Farxiga] 10 mg PO DAILY 04/04/19 [History Confirmed 04/24/19] Nebulizer and Compressor [[place] Choice Nebulizer] 1 each MC Q4H PRN #1 each [Rx Confirmed 04/24/19] predniSONE 20 mg TAB [Deltasone 20 MG TAB*] 20 mg PO BID 04/04/19 [History Confirmed 04/24/19] Review of Systems - Measurements Intake and Output: Intake and Output Last 24 Hours 04/23/19 04/24/19 04/25/19 04/26/19 06:59 06:59 06:59 06:59 Intake Total 70 Output Total 800 Balance -730 Weight 263 lb Intake: IV Fluids 70 ABX - CEFTRIAXONE 55 NS (0.9%) 15 Oral 0 Output: Urine 800 - Review of Systems Constitutional Symptoms: Positive: Fatigue Negative: Weight Gain, Weight Loss, Fever, Night Sweats Dermatology: Negative: Rash, Skin Lesions HEENT: Negative: Change in Hearing, Vertigo, Sinus Problem Eyes: Negative: Change in Vision, Double Vision Thyroid: Negative: Cold Intolerance, Heat Intolerance, Palpitations, Weight Loss, Weight Gain Pulmonary: Positive: Shortness of Breath, COPD, Exercise Intolerance, Home Oxygen Cardiology: Positive: Shortness of Breath, Swelling of Ankles, Edema Negative: Chest Pain, Palpitations, Peripheral Vascular Dis, Syncope, Paroxysmal Nocturnal Dyspnea Gastroenterology: Negative: Blood in Stools, Haematemesis, Melena Genital - Urinary: Negative: Dysuria, Hematuria Musculoskeletal: Negative: Joint Pain, Joint Stiffness Endocrinology: Positive: Obesity, Diabetes Negative: Polydipsia, Polyuria Hematologic/Lymphatic: Negative: Hx Leukemia, Hx Lymphoma, Use of Antiplatelet Drugs Neurology: Negative: Change in Speech, Change in Sphincter Function, Change in Walking, Hx of Stroke\TIA, Hx Seizures Psychiatry: Negative: Unusual Anxiety, Suicidal Ideation Allergic/Immunologic: Negative: Hx HIV, Immunocompromise Review of Systems Statement: All other review of systems negative, unless stated above. Objective Vital Signs: Temp Pulse Resp BP Pulse Ox 97.8 F 76 26 111/57 96 04/25/19 11:09 04/25/19 11:09 04/25/19 11:09 04/25/19 11:09 04/25/19 11:09 Oxygen Devices in Use Now: Nasal Cannula Appearance: chronically ill appearing, not toxic Ears/Nose/Mouth/Throat: Clear Oropharnyx, Mucous Membranes Moist Neck: Trachea Midline, - - uncertain jvp Respiratory: Symmetrical Chest Expansion and Respiratory Effort, - - diffuse coarse breath sounds Cardiovascular: - - irregularly irregular, no significant murmur Abdominal: NL Sounds; No Tenderness; No Distention Extremities: No Clubbing, Cyanosis Skin: No Rash or Ulcers, - - 1-2+ pitting edema with erythema right leg Neurological: Alert and Oriented x 3 Laboratory Results: 04/24/19 20:49 04/24/19 20:49 INR (Anticoag Therapy) 1.03 (0.82-1.09) 04/24/19 20:49 Total Bilirubin 0.50 mg/dL (0.2-1.0) 04/24/19 20:49 AST 16 U/L (13-39) 04/24/19 20:49 ALT 26 U/L (7-52) 04/24/19 20:49 Alkaline Phosphatase 85 U/L (34-104) 04/24/19 20:49 B-Natriuretic Peptide 57 pg/mL (<=100) 04/24/19 20:49 Total Protein 6.6 g/dL (6.4-8.9) 04/24/19 20:49 Albumin 3.8 g/dL (3.2-5.2) 04/24/19 20:49 Globulin 2.8 g/dL (2-4) 04/24/19 20:49 Albumin/Globulin Ratio 1.4 (1-3) 04/24/19 20:49 04/24/19 04/25/19 20:49 00:11 Troponin I 0.03 H* 0.02 Diagnostic Imaging: Transthoracic Echocardiogram Study Date: 04/25/2019 - Left ventricle: The cavity size is normal. Wall thickness is mildly increased. Systolic function is normal. The estimated ejection fraction is 55-60%. Wall motion is normal; there are no regional wall motion abnormalities. - Right ventricle: The cavity size is mildly dilated. Systolic function is low normal. Systolic pressure is mildly increased. - Left atrium: The atrium is moderately to severely dilated. - Aortic root: The aortic root is mildly dilated at 3.9 cm. - Pulmonary arteries: Systolic pressure is mildly increased, estimated to be 39 mm Hg. - No significant valvular abnormalities noted. Exam Date: 04/24/19 CHEST AP/PORT IMPRESSION: EVENTRATION OF THE RIGHT HEMIDIAPHRAGM. NO DEFINITE PNEUMONIA IS IDENTIFIED. EKG Data: EKG on admission shows Afib 82 bpm, RBBB Assessment/Plan There is no evidence of a type 1 AK or grossly decompensated heart failure. He may benefit from compression socks and intermittent leg elevation in addition to diuretics and antibiotics. Smoking cessation to reduce the risk of things including but not limited to heart attack, stroke and discussed and patient expressed understanding.
--- NOTE | 2019-04-25 13:53 | PN ---
Subjective Date of Service: 04/25/19 Interval History: Mr. Mayberry is eager for discharge home, but is agreeable to inpatient stay for treatment of HF exacerbation. He states that he has had b/l LE edema x2 weeks and redness in b/l LE x2-3 days. He reports discomfort, but no pain. He has baseline dyspnea and MAIER, but reports no change in either. He has had a productive cough for > 1 year and reports no change in sputum characteristic. He has had no diet changes as of recently and does not add salt to foods. He reports no change in or missed medications. He was here last month for pna and finished his treatment. He follows with [facility] outpatient, who recommended follow up in [place] 1 year ago, which has not occurred. He has no other complaints today. Objective Active Medications: Albuterol (Ventolin 2.5 Mg/3 Ml Neb.[place]chi*) 2.5 mg INH Q4H PRN PRN Reason: SOB/WHEEZING Last Admin: 04/25/19 10:32 Dose: 2.5 mg Atorvastatin Calcium (Lipitor*) 20 mg PO DAILY [facility] Last Admin: 04/25/19 09:00 Dose: 20 mg Dapagliflozin (Farxiga) 10 mg PO DAILY [facility] Last Admin: 04/25/19 09:00 Dose: Not Given Dextrose (D50w Syringe 50 Ml*) 12.5 gm IV PUSH .FOR FS < 60 - SS PRN PRN Reason: FS < 60 Digoxin (Lanoxin Tab*) 0.125 mg PO DAILY@1700 JULITO Diltiazem HCl (Cardizem Cd Cap*) 180 mg PO DAILY [facility] Last Admin: 04/25/19 09:00 Dose: 180 mg Enoxaparin Sodium (Lovenox(*)) 40 mg SUBCUT Q24H [facility] Furosemide (Lasix Iv*) 40 mg IV SLOW PU DAILY [facility] Last Admin: 04/25/19 09:12 Dose: Not Given Ceftriaxone Sodium 1 gm/ (Sodium Chloride) 50 mls @ 100 mls/hr IVPB Q24H [facility] Last Admin: 04/25/19 05:04 Dose: 100 mls/hr Insulin Human Lispro (Humalog*) 0 units SUBCUT ACHS [facility]; Protocol Last Admin: 04/25/19 11:56 Dose: Not Given Lisinopril (Prinivil Tab*) 10 mg PO DAILY [facility] Last Admin: 04/25/19 09:12 Dose: Not Given Metformin HCl (Glucophage*) 1,000 mg PO BID [facility] Last Admin: 04/25/19 08:59 Dose: 1,000 mg Mometasone Furoate (Asmanex 220 Mcg Mdi *) 1 puff INH QPM [facility] Nicotine (Nicotine Patch 7 Mg/24 Hr*) 1 patch TRANSDERM DAILY [facility] Last Admin: 04/25/19 09:04 Dose: 1 patch Pharmacy Profile Note (Nicotine Patch Removal Note*) 1 note PATCH OFF 2100 [facility] Tiotropium [place]/Olodaterol (Stiolto Respimat Inh [place] (60 Puff)) 2 puff INH DAILY [facility] Last Admin: 04/25/19 10:25 Dose: 2 puff Vital Signs: Temp Pulse Resp BP Pulse Ox 97.8 F 76 26 111/57 96 04/25/19 11:09 04/25/19 11:09 04/25/19 11:09 04/25/19 11:09 04/25/19 11:09 Oxygen Devices in Use Now: Nasal Cannula Appearance: Mr. Mayberry is an older, obese white male who is sitting up in bed. He has increased work of breathing and is on supplemental O2, both of which are reportedly his baseline. He otherwise appears to be in no acute distress. Eyes: No Scleral Icterus, PERRLA Ears/Nose/Mouth/Throat: NL Teeth, Lips, Gums, Clear Oropharnyx, - - Dry oral mucosa Neck: NL Appearance and Movements; NL JVP, Trachea Midline Respiratory: - - increased respiratory effort with mild tachypnea; b/l lungs with insp/exp rhonchi without wheeze, rales Cardiovascular: NL Sounds; No Murmurs; No JVD, - - irregularly irregular; 2+ pitting edema to b/l LE Extremities: No Clubbing, Cyanosis, - - 2+pitting edema to b/l LE; there is an area of erythema on b/l LE medially superior to medial malleolus; area is mildy erythematous with excessive warmth or tenderness to palpation Neurological: Alert and Oriented x 3 Result Diagrams: 04/24/19 20:49 04/24/19 20:49 Additional Lab and Data: Lab Results 04/24/19 04/24/19 04/24/19 Range/Units 20:49 20:49 20:49 WBC 9.1 (3.5-10.8) 10^3/uL RBC 4.23 (4.18-5.48) 10^6 /uL Hgb 14.4 (14.0-18.0) g/dL Hct 42 (42-52) % MCV 99 H (80-94) fL MCH 34 H (27-31) pg MCHC 35 (31-36) g/dL RDW 18 H (10-15) % Plt Count 224 (150-450) 10^3/uL MPV 7.9 (7.4-10.4) fL Neut % (Auto) 85.5 % Lymph % (Auto) 5.4 % [place] % (Auto) 7.1 % Eos % (Auto) 1.7 % Baso % (Auto) 0.3 % Absolute Neuts (auto) 7.8 H (1.5-7.7) 10^3/ul Absolute Lymphs (auto) 0.5 L (1.0-4.8) 10^3/ul Absolute Monos (auto) 0.6 (0-0.8) 10^3/ul Absolute Eos (auto) 0.2 (0-0.6) 10^3/ul Absolute Basos (auto) 0.0 (0-0.2) 10^3/ul Absolute Nucleated RBC 0.0 10^3/ul Nucleated RBC % 0.0 INR (Anticoag Therapy) (0.82-1.09) Sodium 137 (135-145) mmol/L Potassium 4.4 (3.5-5.0) mmol/L Chloride 101 (101-111) mmol/L Carbon Dioxide 29 (22-32) mmol/L Anion Gap 7 (2-11) mmol/L BUN 15 (6-24) mg/dL Creatinine 1.13 (0.67-1.17) mg/dL Est GFR ( Amer) 77.0 (>60) Est GFR (Non-Af Amer) 63.6 (>60) BUN/Creatinine Ratio 13.3 (8-20) Glucose 163 H (70-100) mg/dL Lactic Acid 2.0 (0.5-2.0) mmol/L Calcium 9.4 (8.6-10.3) mg/dL Total Bilirubin 0.50 (0.2-1.0) mg/dL AST 16 (13-39) U/L ALT 26 (7-52) U/L Alkaline Phosphatase 85 (34-104) U/L Troponin I 0.03 H* (<0.03) ng/mL B-Natriuretic Peptide (<=100) pg/mL Total Protein 6.6 (6.4-8.9) g/dL Albumin 3.8 (3.2-5.2) g/dL Globulin 2.8 (2-4) g/dL Albumin/Globulin Ratio 1.4 (1-3) Digoxin Pending 04/24/19 04/24/19 Range/Units 20:49 20:49 WBC (3.5-10.8) 10^3/uL RBC (4.18-5.48) 10^6 /uL Hgb (14.0-18.0) g/dL Hct (42-52) % MCV (80-94) fL MCH (27-31) pg MCHC (31-36) g/dL RDW (10-15) % Plt Count (150-450) 10^3/uL MPV (7.4-10.4) fL Neut % (Auto) % Lymph % (Auto) % [place] % (Auto) % Eos % (Auto) % Baso % (Auto) % Absolute Neuts (auto) (1.5-7.7) 10^3/ul Absolute Lymphs (auto) (1.0-4.8) 10^3/ul Absolute Monos (auto) (0-0.8) 10^3/ul Absolute Eos (auto) (0-0.6) 10^3/ul Absolute Basos (auto) (0-0.2) 10^3/ul Absolute Nucleated RBC 10^3/ul Nucleated RBC % INR (Anticoag Therapy) 1.03 (0.82-1.09) Sodium (135-145) mmol/L Potassium (3.5-5.0) mmol/L Chloride (101-111) mmol/L Carbon Dioxide (22-32) mmol/L Anion Gap (2-11) mmol/L BUN (6-24) mg/dL Creatinine (0.67-1.17) mg/dL Est GFR ( Amer) (>60) Est GFR (Non-Af Amer) (>60) BUN/Creatinine Ratio (8-20) Glucose (70-100) mg/dL Lactic Acid (0.5-2.0) mmol/L Calcium (8.6-10.3) mg/dL Total Bilirubin (0.2-1.0) mg/dL AST (13-39) U/L ALT (7-52) U/L Alkaline Phosphatase (34-104) U/L Troponin I (<0.03) ng/mL B-Natriuretic Peptide 57 (<=100) pg/mL Total Protein (6.4-8.9) g/dL Albumin (3.2-5.2) g/dL Globulin (2-4) g/dL Albumin/Globulin Ratio (1-3) Digoxin Assess/Plan/Problems-Billing Assessment: Mr. Mayberry is a 73 yom with PMHx CAD, AF not on AC, DM, HTN, HLD, respiratory failure who presents to the ER with b/l LE edema and erythema. - Patient Problems (1) Acute on chronic diastolic heart failure Comment: -pt presents with b/l LE edema with mild erythema; dyspnea at baseline without change -suspect this is related to acute HF exacerbation -continue to diurese with IV lasix; plan for 40 IV daily (home dose lasix 20 on hold) -TTE EF 55-60%, diastolic fx indeterminate -I/O, daily weights -so far with negative fluid balance -low salt diet (2) Leg erythema Comment: -medial LE erythema that appears to be similar bilaterally -low suspicion for cellulitis -has received 1 dose of ceftriaxone -will d/c IV abx -continue to monitor for worsening (3) Rhonchi Comment: -no wheezing, increased O2 requirements, change in baseline cough; pulm exam with rhonchi throughout -no leukocytosis, fever -recently received treatment for pna -P CXR: R hemidiaphragm elevation without definite pneumonia -CXR 2 view ordered (4) Elevated troponin Comment: -trop elevated to 0.03 -EKG: AF without apparent EMMY or depression -cardiology consulted; thank you for recommendations -no evedince of DC or grossly decompensated HF (5) Medication dosage changed too rapidly Comment: -pt reports that he d/c his prednisone on his own approximately 1 weeks ago and has been on it since at least October -will restart at 10 daily and plan to wean, as there is concern that he weaned off too quickly (6) Atrial fibrillation Comment: -rate controlled -continue dig, dilt -not on AC; appears to be due to h/o GIB (7) Diabetes Comment: -BG controlled at 90-150's -continue home metformin -lispro ss, fingersticks AC -hold dapagliflozin (8) HTN (hypertension) Comment: -SBP 90-110's -hold lisinopril at this time to allow for increased flexibility with diuresis -IV lasix 40 daily (9) COPD (chronic obstructive pulmonary disease) Comment: -no wheezing, increased O2 requirements; no change in cough/mucous production -does not appear to be in exacerbation -continue home inhalers -prn Duoneb (10) CAD (coronary artery disease) Comment: -continue atorvastatin -lisinopril on hold temporarily (11) Chronic respiratory failure Comment: -continue home O2 (12) Hyperlipidemia Comment: -continue atorvastatin (13) DVT prophylaxis Comment: -lovenox (14) Full code status Status and Disposition: Inpatient. Discharge when stable.
[2019-04-25] MEDS: Furosemide IV* 10 MG/ML VIAL (40 MG) IV SCH (14:56)
[2019-04-25] MEDS: Enoxaparin(*) 40 MG/0.4 ML SYR SUBCUT SCH (14:56)
[2019-04-25] MEDS: Digoxin TAB* 0.125 MG PO SCH (17:06)
[2019-04-25] MEDS: Mometasone 220 MCG MDI INH SCH (19:37)
[2019-04-25] MEDS: Nicotine Patch Removal NOTE PATCH OFF SCH (21:17)
[2019-04-26] MEDS: cefTRIAXone* 1 GM in NS 0.9% 50 ML BAG IVPB SCH (04:18)
[2019-04-26] MEDS: Albuterol 2.5 MG/3 ML NEB.SOL* (0.083%) INH PRN ×3 (04:27→20:22)
[2019-04-26 06:14] LABS: ABS Eosinophils 0.2 10^3/ul (0-0.6); ABS Lymphocytes 0.5 10^3/ul (1.0-4.8); ABS Monocytes 0.8 10^3/ul (0-0.8); ABS Neutrophils 5.2 10^3/ul (1.5-7.7); Eosinophil % 2.9 %; Hematocrit 42 % (42-52); Hemoglobin 14.3 g/dL (14.0-18.0); Lymphocyte % 7.9 %; Mean Corpuscular HGB Conc 34 g/dL (31-36); Mean Corpuscular Hemoglobin 34 pg (27-31); Mean Corpuscular Volume 99 fL (80-94); Mean Platelet Volume 7.8 fL (7.4-10.4); Platelet Count 240 10^3/uL (150-450); Red Blood Count 4.28 10^6 /uL (4.18-5.48); Red Cell Distribution Width 18 % (10-15); White Blood Count 6.7 10^3/uL (3.5-10.8)
[2019-04-26 06:36] LABS: BUN/Creatinine Ratio 15.5 (8-20); Calcium 8.6 mg/dL (8.6-10.3); EGFR African American 85.7 (>60); EGFR Non-African American 70.8 (>60); Magnesium 1.7 mg/dL (1.9-2.7); Potassium 4.2 mmol/L (3.5-5.0)
[2019-04-26] MEDS ORDERED: Magnesium Sulfate 2 GM IV* 2 GM/50 ML BAG IVPB ONE (08:32)
[2019-04-26] MEDS: Insulin LISPRO* 1 UNITS UNIT SUBCUT SCH ×4 (08:38→21:17)
[2019-04-26] MEDS: Diltiazem CD CAP* 180 MG PO SCH (09:07)
[2019-04-26] MEDS: Lisinopril TAB* 10 MG PO SCH (09:07)
[2019-04-26] MEDS: Atorvastatin* 20 MG TAB PO SCH (09:07)
[2019-04-26] MEDS: metFORMIN* 1,000 MG TAB PO SCH ×2 (09:07→21:18)
[2019-04-26] MEDS: Furosemide IV* 10 MG/ML VIAL (40 MG) IV SCH (09:07)
[2019-04-26] MEDS: Nicotine PATCH 7 MG/24 HR* PATCH TRANSDERM SCH (09:08)
[2019-04-26] MEDS: Tiotropium Brom/Olodaterol MDI INH SCH (10:06)
[2019-04-26] MEDS: DAPAGLIFLOZIN 10 MG TAB (NF) PO SCH (10:53)
[2019-04-26] MEDS: Enoxaparin(*) 40 MG/0.4 ML SYR SUBCUT SCH (13:13)
[2019-04-26] MEDS: Digoxin TAB* 0.125 MG PO SCH (17:47)
--- NOTE | 2019-04-26 18:19 | PN ---
Subjective Date of Service: 04/26/19 Interval History: Short of breath at rest, performing occasional purse lipped breathing. Denies chest pain, palpitations, abdominal pain, issues moving bowel or bladder. Feels that his swelling in his legs have improved. Continuing to require continuous oxygen. Family History: Unchanged from Admission Social History: Unchanged from Admission Past Medical History: Unchanged from Admission Objective Active Medications: Albuterol (Ventolin 2.5 Mg/3 Ml Neb.Nkechi*) 2.5 mg INH Q4H PRN PRN Reason: SOB/WHEEZING Last Admin: 04/26/19 10:04 Dose: 2.5 mg Atorvastatin Calcium (Lipitor*) 20 mg PO DAILY COUNTS INCLUDE 234 BEDS AT THE [facility] Last Admin: 04/26/19 09:07 Dose: 20 mg Dapagliflozin (Farxiga) 10 mg PO DAILY COUNTS INCLUDE 234 BEDS AT THE [facility] Last Admin: 04/26/19 10:53 Dose: Not Given Dextrose (D50w Syringe 50 Ml*) 12.5 gm IV PUSH .FOR FS < 60 - SS PRN PRN Reason: FS < 60 Digoxin (Lanoxin Tab*) 0.125 mg PO DAILY@1700 COUNTS INCLUDE 234 BEDS AT THE [facility] Last Admin: 04/26/19 17:47 Dose: 0.125 mg Diltiazem HCl (Cardizem Cd Cap*) 180 mg PO DAILY COUNTS INCLUDE 234 BEDS AT THE [facility] Last Admin: 04/26/19 09:07 Dose: 180 mg Enoxaparin Sodium (Lovenox(*)) 40 mg SUBCUT Q24H COUNTS INCLUDE 234 BEDS AT THE [facility] Last Admin: 04/26/19 13:13 Dose: 40 mg Furosemide (Lasix Iv*) 40 mg IV DAILY COUNTS INCLUDE 234 BEDS AT THE [facility] Last Admin: 04/26/19 09:07 Dose: 40 mg Ceftriaxone Sodium 1 gm/ (Sodium Chloride) 50 mls @ 100 mls/hr IVPB Q24H COUNTS INCLUDE 234 BEDS AT THE [facility] Last Admin: 04/26/19 04:18 Dose: 100 mls/hr Insulin Human Lispro (Humalog*) 0 units SUBCUT ACHS COUNTS INCLUDE 234 BEDS AT THE [facility]; Protocol Last Admin: 04/26/19 17:48 Dose: 6 units Lisinopril (Prinivil Tab*) 10 mg PO DAILY COUNTS INCLUDE 234 BEDS AT THE [facility] Last Admin: 04/26/19 09:07 Dose: 10 mg Metformin HCl (Glucophage*) 1,000 mg PO BID COUNTS INCLUDE 234 BEDS AT THE [facility] Last Admin: 04/26/19 09:07 Dose: 1,000 mg Mometasone Furoate (Asmanex 220 Mcg Mdi *) 1 puff INH QPM COUNTS INCLUDE 234 BEDS AT THE [facility] Last Admin: 04/25/19 19:37 Dose: 1 puff Nicotine (Nicotine Patch 7 Mg/24 Hr*) 1 patch TRANSDERM DAILY COUNTS INCLUDE 234 BEDS AT THE [facility] Last Admin: 04/26/19 09:08 Dose: 1 patch Pharmacy Profile Note (Nicotine Patch Removal Note*) 1 note PATCH OFF 2100 COUNTS INCLUDE 234 BEDS AT THE [facility] Last Admin: 04/25/19 21:17 Dose: 1 note Prednisone (Deltasone 20 Mg Tab) 40 mg PO DAILY COUNTS INCLUDE 234 BEDS AT THE [facility] Tiotropium [place]/Olodaterol (Stiolto Respimat Inh [place] (60 Puff)) 2 puff INH DAILY COUNTS INCLUDE 234 BEDS AT THE [facility] Last Admin: 04/26/19 10:06 Dose: 2 puff Vital Signs - 8 hr 04/26/19 17:47 Pulse Rate 87 Oxygen Devices in Use Now: Nasal Cannula Appearance: This is a well developed gentleman who is chronically ill in appearance in some distress. Eyes: No Scleral Icterus, PERRLA Ears/Nose/Mouth/Throat: NL Teeth, Lips, Gums, Clear Oropharnyx, Mucous Membranes Moist Neck: NL Appearance and Movements; NL JVP, Trachea Midline Respiratory: Symmetrical Chest Expansion and Respiratory Effort, - - Inspiratory and expiratory rhonchi Cardiovascular: NL Sounds; No Murmurs; No JVD, RRR, No Edema Abdominal: NL Sounds; No Tenderness; No Distention Lymphatic: No Cervical Adenopathy Extremities: No Edema, No Clubbing, Cyanosis Skin: - - Bilateral lower extremity redness, worse on posterior surfaces. Neurological: Alert and Oriented x 3 Lines/Tubes/Other Access: Clean, Dry and Intact Peripheral IV Result Diagrams: 04/26/19 05:57 04/26/19 05:57 Additional Lab and Data: Lab Results 04/24/19 04/24/19 04/24/19 Range/Units 20:49 20:49 20:49 WBC 9.1 (3.5-10.8) 10^3/uL RBC 4.23 (4.18-5.48) 10^6 /uL Hgb 14.4 (14.0-18.0) g/dL Hct 42 (42-52) % MCV 99 H (80-94) fL MCH 34 H (27-31) pg MCHC 35 (31-36) g/dL RDW 18 H (10-15) % Plt Count 224 (150-450) 10^3/uL MPV 7.9 (7.4-10.4) fL Neut % (Auto) 85.5 % Lymph % (Auto) 5.4 % [place] % (Auto) 7.1 % Eos % (Auto) 1.7 % Baso % (Auto) 0.3 % Absolute Neuts (auto) 7.8 H (1.5-7.7) 10^3/ul Absolute Lymphs (auto) 0.5 L (1.0-4.8) 10^3/ul Absolute Monos (auto) 0.6 (0-0.8) 10^3/ul Absolute Eos (auto) 0.2 (0-0.6) 10^3/ul Absolute Basos (auto) 0.0 (0-0.2) 10^3/ul Absolute Nucleated RBC 0.0 10^3/ul Nucleated RBC % 0.0 INR (Anticoag Therapy) (0.82-1.09) Sodium 137 (135-145) mmol/L Potassium 4.4 (3.5-5.0) mmol/L Chloride 101 (101-111) mmol/L Carbon Dioxide 29 (22-32) mmol/L Anion Gap 7 (2-11) mmol/L BUN 15 (6-24) mg/dL Creatinine 1.13 (0.67-1.17) mg/dL Est GFR ( Amer) 77.0 (>60) Est GFR (Non-Af Amer) 63.6 (>60) BUN/Creatinine Ratio 13.3 (8-20) Glucose 163 H (70-100) mg/dL Lactic Acid 2.0 (0.5-2.0) mmol/L Calcium 9.4 (8.6-10.3) mg/dL Total Bilirubin 0.50 (0.2-1.0) mg/dL AST 16 (13-39) U/L ALT 26 (7-52) U/L Alkaline Phosphatase 85 (34-104) U/L Troponin I 0.03 H* (<0.03) ng/mL B-Natriuretic Peptide (<=100) pg/mL Total Protein 6.6 (6.4-8.9) g/dL Albumin 3.8 (3.2-5.2) g/dL Globulin 2.8 (2-4) g/dL Albumin/Globulin Ratio 1.4 (1-3) Digoxin Pending 04/24/19 04/24/19 Range/Units 20:49 20:49 WBC (3.5-10.8) 10^3/uL RBC (4.18-5.48) 10^6 /uL Hgb (14.0-18.0) g/dL Hct (42-52) % MCV (80-94) fL MCH (27-31) pg MCHC (31-36) g/dL RDW (10-15) % Plt Count (150-450) 10^3/uL MPV (7.4-10.4) fL Neut % (Auto) % Lymph % (Auto) % [place] % (Auto) % Eos % (Auto) % Baso % (Auto) % Absolute Neuts (auto) (1.5-7.7) 10^3/ul Absolute Lymphs (auto) (1.0-4.8) 10^3/ul Absolute Monos (auto) (0-0.8) 10^3/ul Absolute Eos (auto) (0-0.6) 10^3/ul Absolute Basos (auto) (0-0.2) 10^3/ul Absolute Nucleated RBC 10^3/ul Nucleated RBC % INR (Anticoag Therapy) 1.03 (0.82-1.09) Sodium (135-145) mmol/L Potassium (3.5-5.0) mmol/L Chloride (101-111) mmol/L Carbon Dioxide (22-32) mmol/L Anion Gap (2-11) mmol/L BUN (6-24) mg/dL Creatinine (0.67-1.17) mg/dL Est GFR ( Amer) (>60) Est GFR (Non-Af Amer) (>60) BUN/Creatinine Ratio (8-20) Glucose (70-100) mg/dL Lactic Acid (0.5-2.0) mmol/L Calcium (8.6-10.3) mg/dL Total Bilirubin (0.2-1.0) mg/dL AST (13-39) U/L ALT (7-52) U/L Alkaline Phosphatase (34-104) U/L Troponin I (<0.03) ng/mL B-Natriuretic Peptide 57 (<=100) pg/mL Total Protein (6.4-8.9) g/dL Albumin (3.2-5.2) g/dL Globulin (2-4) g/dL Albumin/Globulin Ratio (1-3) Digoxin Microbiology and Other Data: Microbiology 04/24/19 20:49 Aerobic Blood Culture - Preliminary Blood Venous No Growth Day 1 Anaerobic Blood Culture - Preliminary No Growth Day 1 04/24/19 20:49 Aerobic Blood Culture - Preliminary Blood Venous No Growth Day 1 Anaerobic Blood Culture - Preliminary No Growth Day 1 Assess/Plan/Problems-Billing Assessment: Mr. Mayberry is a 73 yom with PMHx CAD, AF not on AC, DM, HTN, HLD, respiratory failure who presents to the ER with b/l LE edema and erythema. - Patient Problems (1) Acute on chronic diastolic heart failure Current Visit: Yes Status: Acute Code(s): I50.33 - ACUTE ON CHRONIC DIASTOLIC (CONGESTIVE) HEART FAILURE SNOMED Code(s): 358744320 Comment: -pt presents with b/l LE edema with mild erythema; dyspnea at baseline. Has no lower extremity edema now. -suspect this is related to acute HF exacerbation -continue to diurese with IV lasix; plan for 40 IV daily (home dose lasix 20 on hold) -TTE EF 55-60%, diastolic fx indeterminate -I/O, daily weights, gained 2lbs today -so far with negative fluid balance -low salt diet (2) CAD (coronary artery disease) Current Visit: Yes Status: Acute Code(s): I25.10 - ATHSCL HEART DISEASE OF [place] CORONARY ARTERY W/O ANG PCTRS SNOMED Code(s): 60345495 Comment: -continue atorvastatin - Lisinopril on hold. (3) Chronic respiratory failure Current Visit: Yes Status: Acute Code(s): J96.10 - CHRONIC RESPIRATORY FAILURE, UNSP W HYPOXIA OR HYPERCAPNIA SNOMED Code(s): 80090094 Comment: -continue home O2. At home he uses O2 only has needed, though is requiring it continuously currently. (4) Elevated troponin Current Visit: Yes Status: Acute Code(s): R79.89 - OTHER SPECIFIED ABNORMAL FINDINGS OF BLOOD CHEMISTRY SNOMED Code(s): 862445862 Comment: -trop elevated to 0.03, no further draw required. -EKG: AF without apparent EMMY or depression -cardiology consulted; thank you for recommendations -no evedince of [place] or grossly decompensated HF (5) Hyperlipidemia Current Visit: Yes Status: Acute Code(s): E78.5 - HYPERLIPIDEMIA, UNSPECIFIED SNOMED Code(s): 53472623 Comment: -continue atorvastatin (6) Leg erythema Current Visit: Yes Status: Acute Code(s): L53.9 - ERYTHEMATOUS CONDITION, UNSPECIFIED SNOMED Code(s): 182073105 Comment: -medial LE erythema that appears to be similar bilaterally -low suspicion for cellulitis, likely perihperal vascular insufficiency. -has received 1 dose of ceftriaxone -will d/c IV abx -continue to monitor for worsening (7) Rhonchi Current Visit: Yes Status: Acute Code(s): R09.89 - OTH SYMPTOMS AND SIGNS INVOLVING THE CIRC AND RESP SYSTEMS SNOMED Code(s): 73528583 Comment: -no wheezing, change in baseline cough; pulm exam with rhonchi throughout. Is wearing oxygen continuously whereas at home, it is intermittent. Likely related to COPD exacerbation. -no leukocytosis, fever -recently received treatment for pna -P CXR: R hemidiaphragm elevation without definite pneumonia -CXR 2 view ordered (8) COPD (chronic obstructive pulmonary disease) Current Visit: No Status: Acute Code(s): J44.9 - CHRONIC OBSTRUCTIVE PULMONARY DISEASE, UNSPECIFIED SNOMED Code(s): 75221304 Comment: -scattered wheezing thoughout lungs, though no change in cough/mucous production - suspect mild exacerbation, increased prednisone to his home dosage of 40mg -continue home inhalers -prn Duoneb (9) Crohn's disease Current Visit: No Status: Acute Code(s): K50.90 - CROHN'S DISEASE, UNSPECIFIED, WITHOUT COMPLICATIONS SNOMED Code(s): 77160783 Comment: - Continue Colazal. (10) DVT prophylaxis Current Visit: No Status: Acute Code(s): HVH2829 - SNOMED Code(s): 845747759 Comment: -lovenox (11) Full code status Current Visit: No Status: Acute Code(s): Z78.9 - OTHER SPECIFIED HEALTH STATUS SNOMED Code(s): 117874867 (12) HTN (hypertension) Current Visit: No Status: Acute Code(s): I10 - ESSENTIAL (PRIMARY) HYPERTENSION SNOMED Code(s): 80315492 Comment: -SBP 100-110's -Lisinopril on hold. -IV lasix 40 daily (13) Tobacco abuse Current Visit: No Status: Acute Code(s): Z72.0 - TOBACCO USE SNOMED Code(s ): 042793226 Comment: Pt advised to quit smoking and avoid second hand smoke. Status and Disposition: Inpatient. Discharge when stable. Attending: Jesus Velasquez
[2019-04-26] MEDS: Mometasone 220 MCG MDI INH SCH (20:10)
[2019-04-26] MEDS: Nicotine Patch Removal NOTE PATCH OFF SCH (21:19)
[2019-04-27] MEDS: cefTRIAXone* 1 GM in NS 0.9% 50 ML BAG IVPB SCH (05:14)
[2019-04-27] MEDS: Tiotropium Brom/Olodaterol MDI INH SCH (08:11)
--- NOTE | 2019-04-27 08:11 | PN ---
Subjective Date of Service: 04/27/19 Interval History: Feels that there has been no change in his shortness of breath at rest. Continues to wear 3L oxygen via nasal cannula. Blood pressure is soft, though he denies any dizziness or lightheadedness. Also denied chest pain, abdominal pain, nausea, vomiting, issues moving bowel or bladder. Appears less flushed/ distressed than yesterday. Family History: Unchanged from Admission Social History: Unchanged from Admission Past Medical History: Unchanged from Admission Objective Active Medications: Albuterol (Ventolin 2.5 Mg/3 Ml Neb.Nkechi*) 2.5 mg INH Q4H PRN PRN Reason: SOB/WHEEZING Last Admin: 04/26/19 20:22 Dose: 2.5 mg Atorvastatin Calcium (Lipitor*) 20 mg PO DAILY [facility] Last Admin: 04/26/19 09:07 Dose: 20 mg Dapagliflozin (Farxiga) 10 mg PO DAILY [facility] Last Admin: 04/26/19 10:53 Dose: Not Given Dextrose (D50w Syringe 50 Ml*) 12.5 gm IV PUSH .FOR FS < 60 - SS PRN PRN Reason: FS < 60 Digoxin (Lanoxin Tab*) 0.125 mg PO DAILY@1700 [facility] Last Admin: 04/26/19 17:47 Dose: 0.125 mg Diltiazem HCl (Cardizem Cd Cap*) 180 mg PO DAILY [facility] Last Admin: 04/26/19 09:07 Dose: 180 mg Enoxaparin Sodium (Lovenox(*)) 40 mg SUBCUT Q24H [facility] Last Admin: 04/26/19 13:13 Dose: 40 mg Furosemide (Lasix Iv*) 40 mg IV DAILY [facility] Last Admin: 04/26/19 09:07 Dose: 40 mg Ceftriaxone Sodium 1 gm/ (Sodium Chloride) 50 mls @ 100 mls/hr IVPB Q24H [facility] Last Admin: 04/27/19 05:14 Dose: 100 mls/hr Insulin Human Lispro (Humalog*) 0 units SUBCUT ACHS [facility]; Protocol Last Admin: 04/26/19 21:17 Dose: 9 units Metformin HCl (Glucophage*) 1,000 mg PO BID [facility] Last Admin: 04/26/19 21:18 Dose: 1,000 mg Mometasone Furoate (Asmanex 220 Mcg Mdi *) 1 puff INH QPM [facility] Last Admin: 04/26/19 20:10 Dose: 1 puff Nicotine (Nicotine Patch 7 Mg/24 Hr*) 1 patch TRANSDERM DAILY [facility] Last Admin: 04/26/19 09:08 Dose: 1 patch Pharmacy Profile Note (Nicotine Patch Removal Note*) 1 note PATCH OFF 2100 [facility] Last Admin: 04/26/19 21:19 Dose: 1 note Prednisone (Deltasone 20 Mg Tab) 40 mg PO DAILY [facility] Tiotropium [place]/Olodaterol (Stiolto Respimat Inh [place] (60 Puff)) 2 puff INH DAILY [facility] Last Admin: 04/26/19 10:06 Dose: 2 puff Vital Signs - 8 hr 04/27/19 04/27/19 04/27/19 00:13 03:59 06:53 Temperature 97.2 F 97.4 F Pulse Rate 84 74 Respiratory 18 18 20 Rate Blood Pressure 101/64 102/62 (mmHg) O2 Sat by Pulse 95 95 Oximetry 04/27/19 04/27/19 07:15 07:51 Temperature 97.4 F Pulse Rate 76 Respiratory 20 Rate Blood Pressure 92/52 98/54 (mmHg) O2 Sat by Pulse 95 Oximetry Oxygen Devices in Use Now: Nasal Cannula Appearance: This is a well developed older gentleman seen sitting up at side of bed, no acute distress noted. Eyes: No Scleral Icterus, PERRLA Ears/Nose/Mouth/Throat: NL Teeth, Lips, Gums, Clear Oropharnyx, Mucous Membranes Moist Neck: NL Appearance and Movements; NL JVP, Trachea Midline Respiratory: Symmetrical Chest Expansion and Respiratory Effort, Clear to Auscultation Cardiovascular: NL Sounds; No Murmurs; No JVD, RRR, No Edema Abdominal: NL Sounds; No Tenderness; No Distention Lymphatic: No Cervical Adenopathy Result Diagrams: 04/27/19 08:25 04/27/19 08:25 Additional Lab and Data: Lab Results 04/24/19 04/24/19 04/24/19 Range/Units 20:49 20:49 20:49 WBC 9.1 (3.5-10.8) 10^3/uL RBC 4.23 (4.18-5.48) 10^6 /uL Hgb 14.4 (14.0-18.0) g/dL Hct 42 (42-52) % MCV 99 H (80-94) fL MCH 34 H (27-31) pg MCHC 35 (31-36) g/dL RDW 18 H (10-15) % Plt Count 224 (150-450) 10^3/uL MPV 7.9 (7.4-10.4) fL Neut % (Auto) 85.5 % Lymph % (Auto) 5.4 % [place] % (Auto) 7.1 % Eos % (Auto) 1.7 % Baso % (Auto) 0.3 % Absolute Neuts (auto) 7.8 H (1.5-7.7) 10^3/ul Absolute Lymphs (auto) 0.5 L (1.0-4.8) 10^3/ul Absolute Monos (auto) 0.6 (0-0.8) 10^3/ul Absolute Eos (auto) 0.2 (0-0.6) 10^3/ul Absolute Basos (auto) 0.0 (0-0.2) 10^3/ul Absolute Nucleated RBC 0.0 10^3/ul Nucleated RBC % 0.0 INR (Anticoag Therapy) (0.82-1.09) Sodium 137 (135-145) mmol/L Potassium 4.4 (3.5-5.0) mmol/L Chloride 101 (101-111) mmol/L Carbon Dioxide 29 (22-32) mmol/L Anion Gap 7 (2-11) mmol/L BUN 15 (6-24) mg/dL Creatinine 1.13 (0.67-1.17) mg/dL Est GFR ( Amer) 77.0 (>60) Est GFR (Non-Af Amer) 63.6 (>60) BUN/Creatinine Ratio 13.3 (8-20) Glucose 163 H (70-100) mg/dL Lactic Acid 2.0 (0.5-2.0) mmol/L Calcium 9.4 (8.6-10.3) mg/dL Total Bilirubin 0.50 (0.2-1.0) mg/dL AST 16 (13-39) U/L ALT 26 (7-52) U/L Alkaline Phosphatase 85 (34-104) U/L Troponin I 0.03 H* (<0.03) ng/mL B-Natriuretic Peptide (<=100) pg/mL Total Protein 6.6 (6.4-8.9) g/dL Albumin 3.8 (3.2-5.2) g/dL Globulin 2.8 (2-4) g/dL Albumin/Globulin Ratio 1.4 (1-3) Digoxin Pending 04/24/19 04/24/19 Range/Units 20:49 20:49 WBC (3.5-10.8) 10^3/uL RBC (4.18-5.48) 10^6 /uL Hgb (14.0-18.0) g/dL Hct (42-52) % MCV (80-94) fL MCH (27-31) pg MCHC (31-36) g/dL RDW (10-15) % Plt Count (150-450) 10^3/uL MPV (7.4-10.4) fL Neut % (Auto) % Lymph % (Auto) % [place] % (Auto) % Eos % (Auto) % Baso % (Auto) % Absolute Neuts (auto) (1.5-7.7) 10^3/ul Absolute Lymphs (auto) (1.0-4.8) 10^3/ul Absolute Monos (auto) (0-0.8) 10^3/ul Absolute Eos (auto) (0-0.6) 10^3/ul Absolute Basos (auto) (0-0.2) 10^3/ul Absolute Nucleated RBC 10^3/ul Nucleated RBC % INR (Anticoag Therapy) 1.03 (0.82-1.09) Sodium (135-145) mmol/L Potassium (3.5-5.0) mmol/L Chloride (101-111) mmol/L Carbon Dioxide (22-32) mmol/L Anion Gap (2-11) mmol/L BUN (6-24) mg/dL Creatinine (0.67-1.17) mg/dL Est GFR ( Amer) (>60) Est GFR (Non-Af Amer) (>60) BUN/Creatinine Ratio (8-20) Glucose (70-100) mg/dL Lactic Acid (0.5-2.0) mmol/L Calcium (8.6-10.3) mg/dL Total Bilirubin (0.2-1.0) mg/dL AST (13-39) U/L ALT (7-52) U/L Alkaline Phosphatase (34-104) U/L Troponin I (<0.03) ng/mL B-Natriuretic Peptide 57 (<=100) pg/mL Total Protein (6.4-8.9) g/dL Albumin (3.2-5.2) g/dL Globulin (2-4) g/dL Albumin/Globulin Ratio (1-3) Digoxin Microbiology and Other Data: Microbiology 04/24/19 20:49 Aerobic Blood Culture - Preliminary Blood Venous No Growth Day 1 Anaerobic Blood Culture - Preliminary No Growth Day 1 04/24/19 20:49 Aerobic Blood Culture - Preliminary Blood Venous No Growth Day 1 Anaerobic Blood Culture - Preliminary No Growth Day 1 Assess/Plan/Problems-Billing Assessment: Mr. Mayberry is a 73 yom with PMHx CAD, AF not on AC, DM, HTN, HLD, respiratory failure who presents to the ER with b/l LE edema and erythema. - Patient Problems (1) Acute on chronic diastolic heart failure Current Visit: Yes Status: Acute Code(s): I50.33 - ACUTE ON CHRONIC DIASTOLIC (CONGESTIVE) HEART FAILURE SNOMED Code(s): 540713766 Comment: -pt presents with b/l LE edema with mild erythema; dyspnea at baseline. +1-2 bilat pitting LE edema. -suspect this is related to acute HF exacerbation -continue to diurese with IV lasix; plan for 40 IV BID with metolozone before first dose (home dose lasix 20 on hold) -TTE EF 55-60%, diastolic fx indeterminate -I/O, daily weights, gained 2lbs today -so far with negative fluid balance -low salt diet (2) CAD (coronary artery disease) Current Visit: Yes Status: Acute Code(s): I25.10 - ATHSCL HEART DISEASE OF [place] CORONARY ARTERY W/O ANG PCTRS SNOMED Code(s): 54038599 Comment: -continue atorvastatin - Lisinopril on hold. (3) Chronic respiratory failure Current Visit: Yes Status: Acute Code(s): J96.10 - CHRONIC RESPIRATORY FAILURE, UNSP W HYPOXIA OR HYPERCAPNIA SNOMED Code(s): 06035016 Comment: -continue home O2. At home he uses O2 only has needed, though is requiring it continuously currently. (4) Elevated troponin Current Visit: Yes Status: Acute Code(s): R79.89 - OTHER SPECIFIED ABNORMAL FINDINGS OF BLOOD CHEMISTRY SNOMED Code(s): 934514263 Comment: -trop elevated to 0.03, no further draw required. -EKG: AF without apparent EMMY or depression -cardiology consulted; thank you for recommendations -no evedince of [place] or grossly decompensated HF (5) Hyperlipidemia Current Visit: Yes Status: Acute Code(s): E78.5 - HYPERLIPIDEMIA, UNSPECIFIED SNOMED Code(s): 01195471 Comment: -continue atorvastatin (6) Leg erythema Current Visit: Yes Status: Acute Code(s): L53.9 - ERYTHEMATOUS CONDITION, UNSPECIFIED SNOMED Code(s): 583963147 Comment: -medial LE erythema that appears to be similar bilaterally -low suspicion for cellulitis, likely perihperal vascular insufficiency. -has received 1 dose of ceftriaxone -will d/c IV abx -continue to monitor for worsening (7) Rhonchi Current Visit: Yes Status: Acute Code(s): R09.89 - OTH SYMPTOMS AND SIGNS INVOLVING THE CIRC AND RESP SYSTEMS SNOMED Code(s): 20426346 Comment: -no wheezing, change in baseline cough; pulm exam with rhonchi throughout. Is wearing oxygen continuously whereas at home, it is intermittent. Likely related to COPD exacerbation. -no leukocytosis, fever -recently received treatment for pna -P CXR: R hemidiaphragm elevation without definite pneumonia -CXR 2 view ordered (8) COPD (chronic obstructive pulmonary disease) Current Visit: No Status: Acute Code(s): J44.9 - CHRONIC OBSTRUCTIVE PULMONARY DISEASE, UNSPECIFIED SNOMED Code(s): 81009386 Comment: -scattered wheezing thoughout lungs, though no change in cough/mucous production - suspect mild exacerbation, increased prednisone to his home dosage of 40mg, will need to taper off slowly starting 04/30. Started on PCP prophylaxis of bactrim SS once a day. -continue home inhalers -prn Duoneb (9) Crohn's disease Current Visit: No Status: Acute Code(s): K50.90 - CROHN'S DISEASE, UNSPECIFIED, WITHOUT COMPLICATIONS SNOMED Code(s): 97777930 Comment: - Continue Colazal. (10) DVT prophylaxis Current Visit: No Status: Acute Code(s): UTH3278 - SNOMED Code(s): 235742943 Comment: -lovenox (11) Full code status Current Visit: No Status: Acute Code(s): Z78.9 - OTHER SPECIFIED HEALTH STATUS SNOMED Code(s): 339929363 (12) HTN (hypertension) Current Visit: No Status: Acute Code(s): I10 - ESSENTIAL (PRIMARY) HYPERTENSION SNOMED Code(s): 94659728 Comment: -SBP 100-110's -Lisinopril on hold. -IV lasix 40 daily (13) Tobacco abuse Current Visit: No Status: Acute Code(s): Z72.0 - TOBACCO USE SNOMED Code(s ): 216362234 Comment: Pt advised to quit smoking and avoid second hand smoke. Status and Disposition: Inpatient. Discharge when stable. Attending: Yu Lazo
[2019-04-27 08:31] LABS: ABS Eosinophils 0.3 10^3/ul (0-0.6); ABS Lymphocytes 0.5 10^3/ul (1.0-4.8); ABS Monocytes 0.9 10^3/ul (0-0.8); ABS Neutrophils 6.7 10^3/ul (1.5-7.7); Eosinophil % 3.1 %; Hematocrit 40 % (42-52); Hemoglobin 13.7 g/dL (14.0-18.0); Lymphocyte % 5.6 %; Mean Corpuscular HGB Conc 34 g/dL (31-36); Mean Corpuscular Hemoglobin 34 pg (27-31); Mean Corpuscular Volume 99 fL (80-94); Mean Platelet Volume 7.6 fL (7.4-10.4); Nucleated Red Blood Cells % 0.1; Platelet Count 243 10^3/uL (150-450); Red Blood Count 4.06 10^6 /uL (4.18-5.48); Red Cell Distribution Width 18 % (10-15); White Blood Count 8.4 10^3/uL (3.5-10.8)
[2019-04-27] MEDS: metFORMIN* 1,000 MG TAB PO SCH ×2 (08:31→20:39)
[2019-04-27] MEDS: Atorvastatin* 20 MG TAB PO SCH (08:31)
[2019-04-27] MEDS: Diltiazem CD CAP* 180 MG PO SCH (08:31)
[2019-04-27] MEDS: Nicotine PATCH 7 MG/24 HR* PATCH TRANSDERM SCH (08:31)
[2019-04-27] MEDS: Insulin LISPRO* 1 UNITS UNIT SUBCUT SCH ×4 (08:31→21:38)
[2019-04-27] MEDS: DAPAGLIFLOZIN 10 MG TAB (NF) PO SCH (08:33)
[2019-04-27 08:51] LABS: BUN/Creatinine Ratio 21.9 (8-20); Calcium 8.6 mg/dL (8.6-10.3); EGFR African American 76.2 (>60); Potassium 4.2 mmol/L (3.5-5.0)
[2019-04-27] MEDS ORDERED: Metolazone TAB* 5 MG PO SCH (09:00)
[2019-04-27] MEDS: Furosemide IV* 10 MG/ML VIAL (40 MG) IV SCH ×2 (09:23→20:38)
[2019-04-27] MEDS: Enoxaparin(*) 40 MG/0.4 ML SYR SUBCUT SCH (13:05)
[2019-04-27] MEDS ORDERED: Sulfamethox/Trimethoprim DS 800/160* TAB PO ONE (14:16)
[2019-04-27] MEDS: Sulfamethox/Trimethoprim SS 400/80* TAB PO SCH (15:40)
[2019-04-27] MEDS: Albuterol 2.5 MG/3 ML NEB.SOL* (0.083%) INH PRN (16:46)
[2019-04-27] MEDS: Digoxin TAB* 0.125 MG PO SCH (16:52)
[2019-04-27] MEDS: Nicotine Patch Removal NOTE PATCH OFF SCH (20:43)
[2019-04-27] MEDS: Mometasone 220 MCG MDI INH SCH (20:45)
--- NOTE | 2019-04-27 20:54 | CONS ---
GASTROENTEROLOGY CONSULT: DATE: CONSULTING PRACTITIONER: Dimple Witt NP REASON FOR CONSULTATION: Crohn's disease with anemia and constipation. HISTORY: This 73-year-old man with COPD, still smoking, came to the emergency room complaining of leg swelling. He has been admitted and placed on bedrest with increased diuresis. Cardiology has been consulted. His echocardiogram showed good left ventricular function. His response to diuresis has been suboptimal. Metolazone has been added. Also, potentially contributing to acute presentation was his stopping prednisone abruptly a week or two before the admission. As regards his Crohn's, he states that he has been doing reasonably well without any stomach pain. He has been eating an unrestricted diet. It is very difficult for him to delineate exactly what that entails. His is not available to review the details. His bowels have been formed and actually he has counted that he has skipped 13 days since the first of the year, tolerating that fine and not feeling the need for a laxative. PAST MEDICAL HISTORY: 1. COPD - on chronic prednisone as an outpatient on varying doses and then periodically every few months, he will just go off it abruptly, but then gets put back on it chiefly for a lung indication but occasionally complaining of Crohn's problems. 2. Ongoing tobacco abuse. 3. Obesity. 4. Chronic atrial fibrillation - anticoagulation was stopped in November 2017. 5. History of hypertension. 6. History of coronary artery disease. 7. Diabetes. 8. Crohn's disease - began having diarrhea in March 2013 and he was treated initially with the mesalamine product. He was placed on Remicade and the record says it was stopped due to cost. His response to it is not delineated today and he is a very difficult historian. He was then on Humira and list an allergy to that, although it may have been just itching. Azathioprine is listed as not been tolerated with the exact reason unclear. In an effort to avoid arbjieno-sh-skat dose corticosteroids, incessantly he was given a dose of Stelara on 12/26/18, 520 mg. A week or two later, he was seen in the office complaining that his skin was not right. With varying doses of prednisone and other influences, it was far from clear that he had a skin reaction. His diarrhea seemed to improve and he did get a followup injection on schedule 75 mg after informed consent. This was done in the office due to concern about a possible reaction. No reaction occurred and he is now due for his third Stelara dose, again maintenance subcu dose as opposed the initial infusion center dose. There are insurance impediments to this being obtained. He was admitted with a GI bleed in summer 2017. Colonoscopy did show large Crohn's ulcers throughout the colon, more in the proximal colon with the impression of an ileocecal stenosis. He had been on warfarin and that was discontinued. He received 3 units FFP and 3 units of red cells during that admission. There are no small bowel imaging studies in the chart, although there has been no gross abnormality of the small bowel on CT scans, 01/20/15. MEDICATIONS: As an outpatient listing, budesonide inhaler; albuterol inhaler and nebulizer; prednisone 20 mg twice a day, though compliance cannot be determined; metformin 1000 b.i.d.; Farxiga 10 (unclear compliance); simvastatin 40; lisinopril 10; diltiazem 180; furosemide 20; digoxin 125 mcg. SOCIAL HISTORY: He has been 53 years. Discussing how his could contribute to understanding the discharge plan, he remained silent and eventually looks up with an odd grin and says "she does her thing and I do mine. " He will not elaborate on this. PHYSICAL EXAM: He is a substantially overweight older man with a pallid complexion, somewhat short of breath, lying in bed at 30 degrees elevation. He has no icterus. There is no adenopathy. Breath sounds are abnormal with coarse rhonchi. Heart sounds are regular, but without a gross murmur. The abdomen is symmetric, distended with normal bowel sounds. There are no masses. Rectal: Deferred. Extremities show mild erythema and glassy character to the skin below mid tibia. There is no focal cellulitis. IMPRESSION: This 73-year-old man with chronic Crohn's, most concentrated in the proximal colon on a number of studies, is now admitted with shortness of breath and apparent heart failure. Symptomatically, he is not responding all that well to diuresis. Potentially, most of his symptoms stem from chronic pulmonary disease. His Crohn's appears to have responded to Stelara at least clinically and that bowel complaints have fallen off his roster of complaints. When something bothers him, he tends to bring it up incessantly and with emphasis demanding attention. He is not doing that now. It is the best way to loan originator the significance of an issue as opposed to getting direct facts about an issue. There are times when his contributes more clarity to the history, but there appears to be issues preventing that now. For the moment, the most probable explanation for his Crohn's improvement is the Stelara. It will be continued if it can be. [id number]/[facility] #: [id number] [place]
[2019-04-28 06:43] LABS: ABS Eosinophils 0.3 10^3/ul (0-0.6); ABS Lymphocytes 0.6 10^3/ul (1.0-4.8); ABS Monocytes 1.1 10^3/ul (0-0.8); ABS Neutrophils 7.4 10^3/ul (1.5-7.7); Eosinophil % 3.5 %; Hematocrit 42 % (42-52); Hemoglobin 14.3 g/dL (14.0-18.0); Lymphocyte % 6.3 %; Mean Corpuscular HGB Conc 34 g/dL (31-36); Mean Corpuscular Hemoglobin 33 pg (27-31); Mean Corpuscular Volume 98 fL (80-94); Mean Platelet Volume 7.5 fL (7.4-10.4); Platelet Count 266 10^3/uL (150-450); Red Blood Count 4.28 10^6 /uL (4.18-5.48); Red Cell Distribution Width 17 % (10-15); White Blood Count 9.5 10^3/uL (3.5-10.8)
[2019-04-28 07:03] LABS: BUN/Creatinine Ratio 25.4 (8-20); EGFR African American 73.2 (>60); EGFR Non-African American 60.5 (>60); Magnesium 1.8 mg/dL (1.9-2.7); Potassium 3.9 mmol/L (3.5-5.0)
[2019-04-28] MEDS ORDERED: Magnesium Sulfate 2 GM IV* 2 GM/50 ML BAG IVPB ONE (07:04)
[2019-04-28] MEDS ORDERED: Potassium Chlor TAB* 20 MEQ TAB.ER PO ONE (07:04)
[2019-04-28] MEDS: Tiotropium Brom/Olodaterol MDI INH SCH (08:07)
[2019-04-28] MEDS: Albuterol 2.5 MG/3 ML NEB.SOL* (0.083%) INH PRN (08:11)
[2019-04-28] MEDS ORDERED: Metolazone TAB* 5 MG PO SCH (09:00)
[2019-04-28] MEDS: Atorvastatin* 20 MG TAB PO SCH (09:07)
[2019-04-28] MEDS: metFORMIN* 1,000 MG TAB PO SCH (09:07)
[2019-04-28] MEDS: Diltiazem CD CAP* 180 MG PO SCH (09:07)
[2019-04-28] MEDS: Sulfamethox/Trimethoprim SS 400/80* TAB PO SCH (09:07)
[2019-04-28] MEDS: DAPAGLIFLOZIN 10 MG TAB (NF) PO SCH (09:08)
[2019-04-28] MEDS: Furosemide IV* 10 MG/ML VIAL (40 MG) IV SCH (09:08)
[2019-04-28] MEDS: Nicotine PATCH 7 MG/24 HR* PATCH TRANSDERM SCH (09:08)
[2019-04-28] MEDS: Insulin LISPRO* 1 UNITS UNIT SUBCUT SCH ×2 (09:30→13:06)
[2019-04-28 20:03] VITALS: BP 110/68
--- NOTE | 2019-04-29 02:01 | DS ---
CC: Dr. Cabrera * DISCHARGE SUMMARY: DATE OF ADMISSION: 04/25/19 DATE OF DISCHARGE: 04/28/19 PROVIDER: Nicolas Witt NP. ATTENDING PHYSICIAN: Dr. Lazo. PRIMARY CARE PROVIDER: Dr. Cabrera. CONSULTING PHYSICIANS: Dr. Feng and Dr. Villela. ATTENDING PROVIDER: Dr. Lazo * (DICTATED BY NICOLAS WITT NP) PRIMARY DIAGNOSES: 1. Congestive heart failure exacerbation. 2. Chronic obstructive pulmonary disease exacerbation. SECONDARY DIAGNOSES: 1. Atrial fibrillation. 2. Diabetes type 2. 3. Hypertension. 4. Coronary artery disease. 5. Chronic respiratory failure. 6. Hyperlipidemia. PROCEDURES: None. DIAGNOSTIC STUDIES: 1. Chest x-ray on 04/24/19, showed eventration of the right hemidiaphragm. No definite pneumonia is identified. 2. Chest x-ray on 04/25/19, showed right basilar atelectasis, eventration of the right hemidiaphragm. No definite pneumonia identified. 3. Transthoracic echocardiogram showed an ejection fraction of 55% to 60% with no regional wall motion abnormalities and left ventricular diastolic dysfunction , parameters are indeterminant and showed mildly increased systolic pressure in the pulmonary arteries. PERTINENT LAB DATA: WBC is 9.5, hemoglobin 14.3, hematocrit 92, MCV 98, MCH 33 , RDW 17. Sodium 132, chloride 93, BUN 30, creatinine 1.18. BUN and creatinine ratio 25.4, glucose 139, magnesium 1.8. Urine showed trace ketones and 3+ glucose, and ascorbic acid. Digoxin level on 04/24/19 was 0.6. HISTORY OF PRESENT ILLNESS/HOSPITAL COURSE: This is a 73-year-old male with a past medical history significant for CHF, AFib, diabetes type 2, hypertension, and COPD, who came to the emergency room on 04/25/19 with reports of a several- week history of worsening bilateral lower extremity edema with new onset erythema beginning 2 days prior to admission. He had been taking prednisone since October, high doses of prednisone since January, and he stopped his prednisone about a week prior to discharge without tapering it off. He also reported having a chronic cough and shortness of breath. The productive cough he has had for over 1 year and reports no change in the sputum characteristic. He had had no diet changes as of recent and does not add salt to his food. He denied missing any medications. Of note, he was admitted one month ago for pneumonia and has since finished his treatment. In the emergency room, chest x- ray was done, EKG performed, labs drawn. He was shown to have slightly elevated troponin for which Dr. Villela was consulted. However, he did not feel that there was any evidence for type 1 AK and no further cardiac evaluation was needed. However, transthoracic echocardiogram was performed and it did show some mildly elevated systolic pressures in the pulmonary artery suggesting pulmonary hypertension. He states that typically at home, he would wear oxygen overnight or just as needed. Initially on 04/25/19, he was started on 40 mg of daily IV Lasix and with daily weights ordered. It was felt that the redness on his legs was of low suspicion for cellulitis though he did receive 1 dose of ceftriaxone in the emergency room. It was not continued due to the lack of leukocytosis and the areas of redness were not hard to touch, and they seemed to be more predominantly in the dependent areas of his legs and where they would touch that as well as the leg that the redness was bilateral, which makes it even less as a suspicion for cellulitis. On the , he was noted to have a 2.6-pound weight gain; however, the swelling in his legs had improved to the point there was none though he was requiring continuous oxygen to maintain sats above 90, at which point I felt that he was having a mild COPD exacerbation. Despite having no wheezes in his lungs, they were rhonchorous throughout. Initially, he had been placed on prednisone 10 mg p.o. daily when his normal dosing had been 40, so the dosing was increased back up to 40 mg a day. The next day, his breathing was slightly improved though still rhonchorous throughout. He developed +1 to 2 bilateral pitting lower extremity edema again , and his weight had gone up an additional 2 pounds. His IV Lasix was increased to twice a day with metaxalone to be given before the first dose. The redness also seemed to have improved somewhat and then today he had had over a 6-pound weight loss. There were no more crackles in his lungs and he did not appear dehydrated. However, we were able to titrate his oxygen down to 2 L, but at rest and with ambulation, his oxygen levels remained below 88% on room air. The patient stated that he would get short of breath with exertion, but he felt very anxious to go home and was denying any fever or chills. He stated he felt as he normally does. He stated that he had a portable concentrator as well as a home concentration unit and he had his oxygen through [facility]. I spoke with him about the importance of using the oxygen at all times as I felt that his lack of oxygen use probably was contributing to his pulmonary hypertension and I encouraged him to follow up with Dr. Delacruz as he had not seen his own chinese teacher in some time and was unable to remember the last followup. So on the day of discharge, his ankles were still slightly swollen but improved from yesterday and he was threatening to go AMA if he was not discharged; however, I felt clinically he was stable to be discharged. REVIEW OF SYSTEMS: A 12-point system review was performed. It was positive for dyspnea on exertion, but denied any lightheadedness, dizziness, chest pain, palpitations, abdominal pain, nausea, vomiting, issues moving his bowels or bladder. PHYSICAL EXAMINATION: Vital Signs: 97.5 Fahrenheit, 72 pulse, 16 respirations , 95% oxygen on 2 L of oxygen via nasal cannula, and blood pressure was 115/64. General: This is a well-developed obese gentleman, in no acute distress. HEENT : Conjunctivae pink and moist. PERRLA. EOMs intact. Oropharynx clear. Mucous membranes were moist. Noted to have a faust face with slightly flushed cheek. Neck is supple. Cardiac: S1, S2 present. Heart rate regular with no murmurs, gallops or rubs appreciated. Lung sounds rhonchorous throughout, but without wheezing or crackles, on 2L of oxygen via nasal cannula. No accessory muscle use noted. Abdomen: Soft, nontender, nondistended with positive bowel sounds x4. Musculoskeletal: Some clubbing of the digits, but no cyanosis. Able to move all extremities. Neurologic: Sensation was intact to light touch. No focal deficits appreciated. Skin was intact with no open areas or rashes. Psych: He is alert and oriented x4. Thought content organized. DISCHARGE PLAN: He is to be discharged home on a consistent carb, low salt and low fat. His activity is as tolerated within his limitations. I did encourage up to 250 minutes of activity each week doing things like walking if possible. He was to return to the emergency room if he developed increasing shortness of breath despite oxygen or inhalers, chest pain or weakness on one side of his body. He was to notify Dr. Cabrera if he had any notable increase in ankle swelling. PLAN FOR EACH CONDITION: 1. CHF exacerbation. He has to weigh himself daily the consistent time in the morning before breakfast and without clothes on. If he gains 2 to 5 pounds in one day, he is to take an extra dose of furosemide that evening and will weigh himself in the morning. If his weight does not go down or he gains more than 5 pounds in one day, he should call his primary care physician for further instructions and may need to go to the hospital for IV diuresis. He was instructed to avoid salty foods and quit smoking, and he is to continue his furosemide. 2. COPD exacerbation. I felt that his exacerbation was very mild, however, his oxygen demand has increased from baseline though I have a feeling. He has needed continuous oxygen for some time. He is to continue his budesonide, albuterol, and Anoro inhalers. He had been on high doses of prednisone of waxing and waning doses since October. He has stopped his prednisone several times without tapering including 1 week prior to admission, which I feel may have contributed to this state in which his lungs were in. He was instructed to not stop the prednisone for fear of adrenal crises and instead give very specific taper down course that he is to take 40 mg of prednisone initially and then start tapering by 5 mg once a week with his taper dosing completed in the beginning of June. I also started him on PCP prophylaxis with Bactrim single strength once a day for a while. He is taking prednisone doses of above 20 mg a day, which he can discontinue when he begins taking the smaller doses. I also gave him some smoking cessation counseling to mitigate his current symptoms as well as prevent further damage. He was using a nicotine patch successfully without cravings in the hospital. So, I prescribed him some additional patches upon discharge. I instructed to not smoke while using the patches and that if he finds himself being unable to completely abstain from smoking to at least try to cut back on the amount that he uses. I also instructed him to wear oxygen at all times, as he already has all of the equipment at home and to follow up with Dr. Delacruz or his own chinese teacher within the next few days for further evaluation of his lungs. 3. Diabetes type 2. His blood sugars while in the hospital varied between 94 and as high as 226 though generally remained around 140s to 150s, which is adequate. He is to continue his Farxiga and metformin. I would like to him to follow up with primary care because his dosing needs to be changed as he is weaned off of the prednisone. 4.. Hypertension. He is to continue his furosemide and lisinopril daily. Blood pressure control has been adequate since admission. 5. Hyperlipidemia, to continue atorvastatin. NEW MEDICATIONS UPON DISCHARGE: 1. Prednisone 40 mg p.o. daily until 05/03, and then taper dosing down 5 mg every 7 days until his final dosing on 06/22/19 and then he may stop. Bactrim Single- Strength 400/80 one tab p.o. daily while on doses of prednisone higher than 15 mg a day. 2. Nicotine patch 7 mg one patch q.24 hours transdermally daily. 3. Albuterol inhaler 1 to 2 puffs q.4 hours inhalation p.r.n. Medications to continue upon discharge: 1. Budesonide 180 mcg inhaler 1 puff inhalation daily. 2. [place] 3 fatty acid 2400 mg p.o. daily. 3. Lisinopril 10 mg p.o. daily. 4. Furosemide 20 mg p.o. daily. 5. Digoxin 125 mcg p.o. daily. 6. Farxiga 10 mg p.o. daily. 7. Cholecalciferol 2000 units p.o. daily. 8. Calcium carbonate 1200 mg p.o. daily. 9. Metformin 1000 mg p.o. b.i.d. 10. Diltiazem 180 mg p.o. q.a.m. 11. Anoro 62.5/25 Ellipta device 1 puff inhalation daily. 12. Simvastatin 40 mg p.o. q.p.m. CONDITION UPON DISCHARGE: Fair. DISPOSITION: To home. TIME SPENT: Time spent on the patient is about 70 minutes with 40 minutes of that spent face to face. NICOLAS WITT, WAFER CUTTER [id number]/[facility] #: [id number] [place]
== END 2019-04-28 15:08 | disposition home or self-care (01) | DRG 292 ==
LOC: ED 19:45 → MEDTELE 04-25 04:46
PROVIDERS: ADMIT Family Medicine; ATTEND Internal Medicine
DX: I11.0 Hypertensive heart disease with heart failure (principal); J44.1 Chronic obstructive pulmonary disease with (acute) exacerbation; I48.20 Chronic atrial fibrillation, unspecified; K50.10 Crohn's disease of large intestine without complications; J96.10 Chronic respiratory failure, unspecified whether with hypoxia or hypercapnia; I50.33 Acute on chronic diastolic (congestive) heart failure; E53.8 Deficiency of other specified B group vitamins; G47.30 Sleep apnea, unspecified; F17.210 Nicotine dependence, cigarettes, uncomplicated; E66.9 Obesity, unspecified; I25.10 Atherosclerotic heart disease of native coronary artery without angina pectoris; E11.9 Type 2 diabetes mellitus without complications; E78.5 Hyperlipidemia, unspecified; R79.89 Other specified abnormal findings of blood chemistry; L53.9 Erythematous condition, unspecified; E78.00 Pure hypercholesterolemia, unspecified; M19.90 Unspecified osteoarthritis, unspecified site; I27.20 Pulmonary hypertension, unspecified; Z99.81 Dependence on supplemental oxygen; Z68.32 Body mass index [BMI] 32.0-32.9, adult; Z95.5 Presence of coronary angioplasty implant and graft
CPT/HCPCS: 36415; 71045; 71046; 80048; 80053; 80162; 81003; 83605; 83735; 83880; 84484; 85025; 85610; 86140; 87040; 93005; 93306; 94640; 99284; 99406; A9270-GY; C8929; J0696; J1650; J1940; J3475; J3535; J7512